=== PATIENT | male | born 1960 | race Caucasian/White ===

== ENCOUNTER 2016-11-15 07:57 | Day surgery (SDC) | payer OTHER ==
[2016-11-14 09:36] VITALS: BMI 38.3
[~2016-11-15 07:57] MED LIST: SODIUM CHLORIDE 0.9% 1,000 ML IV SCH
[2016-11-15 08:23] VITALS: TEMP 97.8
[2016-11-15] MEDS: BENZOCAINE SPRAY 100 APPLIC/CAN MUCOUS MEM ONE ×2 (09:15→09:20)
[2016-11-15] MEDS ORDERED: LIDOCAINE 1% INJ 10MG/ML (20 ML MDV) ONE (09:20)
[2016-11-15] MEDS ORDERED: PROPOFOL 10 MG/ML 20 ML VIAL IV ONE (09:20)
[2016-11-15] MEDS ORDERED: fentaNYL (PF) 50 MCG/ML 2 ML AMP ONE (09:20)
[2016-11-15 09:21] LABS: Glucose,Whole Blood 126 mg/dL (75-99)
[2016-11-15 09:30] LABS: Anion Gap 7 mmol/L; Blood Urea Nitrogen 17 mg/dL (9-20); Carbon Dioxide 24 mmol/L (22-30); Chloride 109 mmol/L (98-107); Glucose 132 mg/dL (74-99); Non-African American GFR(MDRD) >60 (>60 ml/min/1.73 sqM); Potassium 4.4 mmol/L (3.5-5.1); Sodium 140 mmol/L (137-145)
[2016-11-15] MEDS ORDERED: SODIUM CHLORIDE 0.9% 1,000 ML IV SCH (09:45)
--- NOTE | 2016-11-15 09:55 | ECHOT ---
DATE OF SERVICE: INDICATION: Chronic atrial fibrillation to rule out intracardiac thrombus. PROCEDURE NOTE: After obtaining informed consent, transesophageal echocardiogram is performed in the left lateral position using an Omni plane probe. Local and IV sedation were obtained by the gun club manager. Patient tolerated the procedure well without any obvious immediate complications. FINDINGS: 1. There is no intracardiac thrombus within the left atrial appendage, left atrium, right atrium and right ventricle. Left ventricle has normal size and systolic function. 2. Mitral valve is anatomically normal. There is mild mitral regurgitation noted. 3. Aortic valve is a 3-leaflet valve. There is mild to moderate aortic regurgitation noted. 4. Tricuspid valve appears normal, aorta measures within normal limits. 5. Interatrial septum: There is no evidence of [id number]-[id number] shunt by color flow Doppler or rgfei-pj-acme shunt by agitated saline contrast study. CONCLUSION: 1. No intracardiac thrombus. 2. Mild to moderate aortic regurgitation. PLAN: Patient will undergo cardioversion.
--- NOTE | 2016-11-15 09:59 | CE ---
DATE OF SERVICE: CARDIOVERSION: INDICATION: Chronic atrial fibrillation. After performing a transesophageal echo and confirming that there is no intracardiac thrombus, patient underwent cardioversion using 200 joules of DC current. He converted to sinus rhythm following a single shock and stayed in sinus rhythm. He is currently on Eliquis which he is going to continue. I am going to decrease the dose of Coreg to 3.125 b.i.d.
[2016-11-15 10:05] VITALS: RESP 16
[2016-11-15 11:32] VITALS: BP 121/72; PULSE 60
[2016-11-15] MEDS ORDERED: CARVEDILOL 6.25 MG TAB PO SCH (21:00)
[2016-11-15] MEDS ORDERED: traZODone HCL 100 MG TAB PO SCH (21:00)
[2016-11-15] MEDS ORDERED: metFORMIN 500 MG TAB PO SCH (21:00)
[2016-11-15] MEDS ORDERED: APIXABAN 5 MG TAB PO SCH (21:00)
[2016-11-16] MEDS ORDERED: ASPIRIN 81 MG CHEW PO SCH (09:00)
[2016-11-16] MEDS ORDERED: buPROPion XL 150 MG TAB.ER.24H PO SCH (09:00)
[2016-11-16] MEDS ORDERED: LISINOPRIL 2.5 MG TAB PO SCH (09:00)
== END 2016-11-15 11:32 | disposition home or self-care (01) ==
LOC: CATHCVL 07:57
PROVIDERS: ATTEND Internal Medicine Cardiovascular Disease
DX: I48.2 Chronic atrial fibrillation (principal); I08.0 Rheumatic disorders of both mitral and aortic valves; I48.92 Unspecified atrial flutter; R94.31 Abnormal electrocardiogram [ECG] [EKG]; E11.9 Type 2 diabetes mellitus without complications; I10 Essential (primary) hypertension; F32.9 Major depressive disorder, single episode, unspecified; Z79.01 Long term (current) use of anticoagulants; Z79.84 Long term (current) use of oral hypoglycemic drugs; Z79.82 Long term (current) use of aspirin; Z79.899 Other long term (current) drug therapy; Z79.1 Long term (current) use of non-steroidal anti-inflammatories (NSAID)
CPT/HCPCS: 93312; 93320; 93005; 93325; 92960; 80048; J2001; J3010; J2704

== ENCOUNTER 2016-12-26 17:00 | Emergency (ER) | payer OTHER ==
[2016-12-26] MEDS ORDERED: SODIUM CHLORIDE 0.9% 1,000 ML IV STA (17:22)
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
[2016-12-26 21:37] VITALS: BP 136/56; PULSE 82; RESP 20; TEMP 97.9
== END 2016-12-26 21:35 | disposition home or self-care (01) ==
LOC: EC 17:00
DX: F10.120 Alcohol abuse with intoxication, uncomplicated (principal); S80.212A Abrasion, left knee, initial encounter; S50.312A Abrasion of left elbow, initial encounter; F32.9 Major depressive disorder, single episode, unspecified; I10 Essential (primary) hypertension; F17.200 Nicotine dependence, unspecified, uncomplicated; Z79.899 Other long term (current) drug therapy; W01.0XXA Fall on same level from slipping, tripping and stumbling without subsequent striking against object, initial encounter; Y92.89 Other specified places as the place of occurrence of the external cause
CPT/HCPCS: 82075; 96360; 99284

== ENCOUNTER 2018-02-11 14:47 | Observation (INO) | payer OTHER ==
[2018-02-11] MEDS ORDERED: ADENOSINE 3 MG/ML 2 ML VIAL IVP STA ×2 (14:54→14:56)
[2018-02-11] MEDS ORDERED: METOPROLOL TARTRATE 5 MG/5 ML VIAL IVP STA (14:58)
[2018-02-11] MEDS ORDERED: LORazepam 2 MG/ML INJ IV STA (14:59)
[2018-02-11] MEDS ORDERED: DIPH,PERTUS(ACELL)TETVAC-LF 0.5 ML VIAL IM ONE (15:01)
[2018-02-11 15:04] LABS: Anisocytosis Slight; Basophils % (A) 0 %; Eosinophils % (A) 0 %; HGB 17.2 gm/dL (13.0-17.5); Hypochromasia Slight; Lymphocytes % (A) 20 %; MCH 31.8 pg (25.0-35.0); MCV 102.6 fL (80.0-100.0); Macrocytosis Moderate; Mean Platelet Volume 7.4; Monocytes # (A) 0.5 k/uL (0-1.0); Monocytes % (A) 5 %; Neutrophils # (A) 7.6 k/uL (1.3-7.7); Neutrophils % (A) 74 %; Platelet Count 195 k/uL (150-450); RBC 5.41 m/uL (4.30-5.90); RDW 16.5 % (11.5-15.5); WBC 10.3 k/uL (3.8-10.6)
[2018-02-11 15:05] LABS: HCT 55.5 % (39.0-53.0)
[2018-02-11 15:12] LABS: INR 1.2 (<1.2); Partial Thromboplastin Time 23.7 sec (22.0-30.0); Prothrombin Time 11.1 sec (9.0-12.0)
[2018-02-11 15:14] LABS: ALT 24 U/L (21-72); AST 27 U/L (17-59); Albumin 4.8 g/dL (3.5-5.0); Alkaline Phosphatase 94 U/L (38-126); Amylase 47 U/L (30-110); Anion Gap 23 mmol/L; Blood Urea Nitrogen 16 mg/dL (9-20); Calcium 9.4 mg/dL (8.4-10.2); Carbon Dioxide 12 mmol/L (22-30); Chloride 109 mmol/L (98-107); Glucose 111 mg/dL (74-99); Lipase 29 U/L (23-300); Potassium 4.7 mmol/L (3.5-5.1); Sodium 144 mmol/L (137-145); Total Bilirubin 1.6 mg/dL (0.2-1.3); Total Protein 7.8 g/dL (6.3-8.2)
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
[2018-02-11 15:32] LABS: Alcohol 357 mg/dL
[2018-02-11 15:35] LABS: Troponin I 0.022 ng/mL (0.000-0.034)
[2018-02-11] MEDS ORDERED: SODIUM CHLORIDE 0.9% 1,000 ML IV ONE (15:45)
[2018-02-11 16:09] LABS: Glucose,Whole Blood 120 mg/dL (75-99)
[2018-02-11] MEDS ORDERED: SODIUM CHLORIDE 0.9% 2,000 ML IV ONE (16:15)
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
[2018-02-11 17:12] LABS: Appearance,Urine Clear (Clear); Bacteria,Urine Occasional /hpf; Bilirubin,Urine Negative (Negative); Blood,Urine Small (Negative); Color,Urine Yellow; Glucose,Urine (UA) Negative (Negative); Granular Casts,Urine 1 /lpf (0); Hyaline Casts,Urine 7 /lpf (0-2); Ketones,Urine 1+ (Negative); Leukocyte Esterase,Urine Moderate (Negative); Nitrite,Urine Negative (Negative); Protein,Urine 2+ (Negative); RBC,Urine 2 /hpf (0-5); Specific Gravity,Urine 1.023 (1.001-1.035); Squamous Epithelial Cell,Urine <1 /hpf (0-4); Urobilinogen,Urine <2.0 mg/dL (<2.0); WBC,Urine 13 /hpf (0-5)
[2018-02-11 17:17] LABS: Amphetamine Screen,Urine Not Detected (NotDetected); Barbiturate Screen,Urine Not Detected (NotDetected); Benzodiazepines Screen,Urine Not Detected (NotDetected); Cocaine Screen,Urine Not Detected (NotDetected); Methadone Screen, Urine Not Detected (NotDetected); Opiate Screen,Urine Not Detected (NotDetected); Oxycodone Screen, Urine Not Detected (NotDetected); Phencyclidine Screen,Urine Not Detected (NotDetected); Tricyclic Antidepressant,Urine Not Detected (NotDetected); Urn Cannabinoid Scrn Not Detected (NotDetected)
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
[2018-02-11] MEDS ORDERED: NALOXONE 0.4 MG/ML 1 ML VIAL IV PRN (18:17)
[2018-02-11] MEDS ORDERED: IBUPROFEN 800 MG TAB PO PRN (18:19)
[2018-02-11] MEDS ORDERED: PIPERACILLIN-TAZOBACTAM 3.375 GM in DEXTROSE/WATER 1 50ML.BAG IVPB STA (18:19)
[2018-02-11] MEDS ORDERED: THIAMINE 100 MG/ML 2 ML VIAL IM STA (18:21)
[2018-02-11] MEDS ORDERED: LORazepam 2 MG/ML INJ IV PRN ×3 (18:21)
[2018-02-11 19:59] VITALS: TEMP 98
[2018-02-11] MEDS ORDERED: THIAMINE 100 MG TAB PO SCH (20:00)
[2018-02-11] MEDS ORDERED: metFORMIN 500 MG TAB PO SCH (20:00)
[2018-02-11] MEDS ORDERED: CARVEDILOL 6.25 MG TAB PO SCH (20:00)
[2018-02-11 20:59] LABS: Glucose,Whole Blood 135 mg/dL (75-99)
[2018-02-11] MEDS ORDERED: APIXABAN 5 MG TAB PO SCH (21:00)
[2018-02-11] MEDS ORDERED: traZODone HCL 100 MG TAB PO SCH (21:00)
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
[2018-02-11 22:13] VITALS: BP 152/94; PULSE 112; RESP 18
[2018-02-12] MEDS ORDERED: PIPERACILLIN-TAZOBACTAM 3.375 GM in DEXTROSE/WATER 1 50ML.BAG IVPB SCH
[2018-02-12] MEDS ORDERED: buPROPion XL 150 MG TAB.ER.24H PO SCH (09:00)
[2018-02-12] MEDS ORDERED: LISINOPRIL 2.5 MG TAB PO SCH (09:00)
[2018-02-12] MEDS ORDERED: ASPIRIN 81 MG PO SCH (09:00)
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
--- NOTE | 2018-02-21 17:04 | P.HPIM ---
History of Present Illness H&P Date: 02/11/18 Patient left AMA before I can evaluate the patient Past Medical History Past Medical History: Atrial Fibrillation, Diabetes Mellitus, Hypertension, Osteoarthritis (OA) Additional Past Medical History / Comment(s): hx. kidney stones History of Any Multi-Drug Resistant Organisms: None Reported Past Surgical History: Adenoidectomy, Tonsillectomy Past Anesthesia/Blood Transfusion Reactions: No Reported Reaction Past Psychological History: Depression Smoking Status: Current every day smoker Past Alcohol Use History: Abuse, Daily, Heavy Past Drug Use History: None Reported - Past Family History Mother Family Medical History: Cancer Medications and Allergies Home Medications Medication Instructions Recorded Confirmed Type Lisinopril [Zestril] 2.5 mg PO DAILY 11/12/16 02/11/18 History buPROPion XL [Wellbutrin Xl] 150 mg PO DAILY 11/12/16 02/11/18 History traZODone HCL [Desyrel] 200 mg PO HS 11/12/16 02/11/18 History Apixaban [Eliquis] 5 mg PO BID 02/11/18 02/11/18 History Aspirin [Adult Low Dose Aspirin EC] 81 mg PO DAILY 02/11/18 02/11/18 History Carvedilol [Coreg] 6.25 mg PO BID 02/11/18 02/11/18 History Ibuprofen 800 mg PO TID PRN 02/11/18 02/11/18 History metFORMIN HCL [Glucophage] 500 mg PO BID 02/11/18 02/11/18 History Allergies Allergy/AdvReac Type Severity Reaction Status Date / Time No Known Allergies Allergy Verified 02/12/18 00:37 Results CBC & Chem 7: 02/11/18 14:49 02/11/18 14:49
== END 2018-02-11 22:17 | disposition left against medical advice (07) ==
LOC: EC 14:47 → INTOOBSV 18:17 → 6SEL 18:17 → UNDODISIN 22:17
PROVIDERS: ADMIT Internal Medicine; ATTEND Internal Medicine
PROC: 0HQ5XZZ Repair Chest Skin, External Approach (ICD-10-PCS; principal; 2018-02-11)
DX: S21.112A Laceration without foreign body of left front wall of thorax without penetration into thoracic cavity, initial encounter (principal); X99.1XXA Assault by knife, initial encounter; F10.129 Alcohol abuse with intoxication, unspecified; Y90.8 Blood alcohol level of 240 mg/100 ml or more; I48.91 Unspecified atrial fibrillation; E11.9 Type 2 diabetes mellitus without complications; M19.90 Unspecified osteoarthritis, unspecified site; I10 Essential (primary) hypertension; R74.8 Abnormal levels of other serum enzymes; Z87.442 Personal history of urinary calculi; F32.9 Major depressive disorder, single episode, unspecified; F17.200 Nicotine dependence, unspecified, uncomplicated; Z80.9 Family history of malignant neoplasm, unspecified; Z79.899 Other long term (current) drug therapy; Z79.82 Long term (current) use of aspirin; Z79.84 Long term (current) use of oral hypoglycemic drugs; Z79.01 Long term (current) use of anticoagulants; Z53.21 Procedure and treatment not carried out due to patient leaving prior to being seen by health care provider; R40.2412 Glasgow coma scale score 13-15, at arrival to emergency department; R40.2362 Coma scale, best motor response, obeys commands, at arrival to emergency department; R40.2242 Coma scale, best verbal response, confused conversation, at arrival to emergency department; R06.02 Shortness of breath
CPT/HCPCS: 96372; 12002; 90471; 96361; 96374; 96375; 99291; 36415; 86900; 86901; 80053; 82150; 82550; 82553; 83605; 83690; 83735; 84484; 85025; 85610; 85730; 86850; 81001; 80306; 71045; 71260; 74177; 90715; G0378; G0480; J2060; J3411; J0153; J2543; Q9967; 80320

== ENCOUNTER 2021-01-30 17:29 | Inpatient (IN) | payer OTHER, MEDICARE ==
[~2021-01-30 17:29] MED LIST changes: +CALCIUM CHLORIDE 100 MG/ML 10 ML SYRINGE ONE; +EPINEPHrine 10 ML SYRINGE (0.1 MG/ML) ONE; +SODIUM BICARB 8.4% 50 ML SYR (1 MEQ/ML) ONE; -SODIUM CHLORIDE 0.9% 1,000 ML IV SCH
[2021-01-30 17:44] LABS: Glucose,Whole Blood 277 mg/dL (75-99)
[2021-01-30] MEDS ORDERED: NOREPINEPHRINE 32 MG in SODIUM CHLORIDE 0.9% 250 ML IV ONE ×2 (17:49→18:00)
[2021-01-30] MEDS ORDERED: SODIUM CHLORIDE 0.9% 1,000 ML IV ONE (17:49)
[2021-01-30] MEDS ORDERED: NOREPINEPHRINE 8 MG in SODIUM CHLORIDE 0.9% 250 ML IV ONE (17:58)
[2021-01-30] MEDS ORDERED: NOREPINEPHRINE 32 MG in SODIUM CHLORIDE 0.9% 218 ML IV ONE (18:00)
[2021-01-30 18:07] LABS: Albumin 3.1 g/dL (3.5-5.0); Calcium 11.3 mg/dL (8.4-10.2); Total Bilirubin 1.9 mg/dL (0.2-1.3); Total Protein 5.9 g/dL (6.3-8.2)
[2021-01-30] MEDS ORDERED: LIDOCAINE 1% INJ 10MG/ML (20 ML MDV) ONE (18:08)
[2021-01-30 18:09] LABS: HCT 48.8 % (39.0-53.0); HGB 15.6 gm/dL (13.0-17.5); Hypochromasia Moderate; MCHC 31.9 g/dL (31.0-37.0); Macrocytosis Marked; Mean Platelet Volume 9.9; RBC 4.44 m/uL (4.30-5.90); RDW 14.7 % (11.5-15.5); WBC 17.3 k/uL (3.8-10.6)
[2021-01-30] MEDS ORDERED: HEPARIN SODIUM 1,000 UN/ML (10ML VL) ONE (18:12)
[2021-01-30] MEDS ORDERED: fentaNYL (PF) 50 MCG/ML 2 ML AMP ONE (18:12)
[2021-01-30 18:14] LABS: ABG HCO3 20 mmol/L (21-25); ABG Oxygen Saturation 99.4 % (94-97); ABG PCO2 66 mmHg (35-45); ABG PO2 283 mmHg (83-108); ABG TCO2 22 mmol/L (19-24); Allen Test Performed? Yes
[2021-01-30 18:18] LABS: Creatine Kinase MB 0.5 ng/mL (0.0-2.4); Troponin I 0.025 ng/mL (0.000-0.034)
[2021-01-30 18:21] LABS: Band Neutrophils % 24 %; Lymphocytes # (M) 4.15 k/uL (1.0-4.8); Metamyelocytes # (M) 0.17 k/uL (0); Metamyelocytes % 1 %; Monocytes # (M) 2.25 k/uL (0-1.0); Neutrophils % (M) 39 %; Nucleated Red Blood Cells 0 /100 WBC (0-0); Total Cells Counted 200
[2021-01-30] MEDS ORDERED: fentaNYL (PF) 50 MCG/ML 2 ML AMP IVP STA (18:23)
[2021-01-30] MEDS ORDERED: fentaNYL (PF). 1,000 MCG in SODIUM CHLORIDE 0.9% 80 ML IV SCH (18:30)
[2021-01-30 18:31] LABS: Partial Thromboplastin Time 21.3 sec (22.0-30.0); Prothrombin Time 11.1 sec (9.0-12.0)
[2021-01-30] MEDS ORDERED: NOREPINEPHRINE 4 MG in SODIUM CHLORIDE 0.9% 250 ML IV ONE (18:35)
[2021-01-30] MEDS ORDERED: IV FLUID CONTINUATION 500 ML IV ONE (18:35)
[2021-01-30 18:37] LABS: ABG PH 7.09 (7.35-7.45)
[2021-01-30] MEDS ORDERED: LIDOCAINE 1% INJ 10MG/ML (20 ML MDV) SQ ONE (18:46)
[2021-01-30] MEDS ORDERED: fentaNYL (PF) 50 MCG/ML 2 ML AMP IVP ONE (18:46)
--- NOTE | 2021-01-30 18:46 | XR ---
EXAMINATION TYPE: XR chest 1V portable DATE OF EXAM: 01/30/2021 CLINICAL HISTORY: intubation. TECHNIQUE: Portable supine view of the chest. COMPARISON: 02/11/2018 FINDINGS: Endotracheal tube distal tip 3.9 cm from the destiny. Enteric tube appears coiled over the cervical esophagus. Redemonstrated cardiomegaly. There are perihilar multifocal patchy airspace opaci ties and increased interstitial markings. Small left pleural effusion. No pneumothorax within limitat ions of supine technique. No acute displaced osseous fracture. IMPRESSION: 1. Endotracheal tube distal tip 3.9 cm from the destiny. 2. Enteric tube appears coiled over the neck/cervical esophagus. 3. Multifocal bilateral perihilar airspace opacities may represent pneumonia versus pulmonary edema.
--- NOTE | 2021-01-30 18:48 | XR ---
EXAMINATION TYPE: XR chest 1V DATE OF EXAM: 01/30/2021 CLINICAL HISTORY: line place. TECHNIQUE: Portable frontal view of the chest. COMPARISON: 01/30/2021 at 5:45 PM FINDINGS: Redemonstrated and endotracheal tube. Redemonstrated enteric tube coiled over the neck. In terval placement of a left internal jugular central venous catheter with distal tip coursing craniall y over the expected superior vena cava. No pneumothorax of the visualized lungs. Small left pleural e ffusion. Perihilar airspace opacities redemonstrated. IMPRESSION: 1. Left internal jugular central venous catheter distal tip courses cranially over the expected prox imal superior vena cava. No pneumothorax. 2. Redemonstrated enteric tube coiled over the neck.
--- NOTE | 2021-01-30 18:54 | ED ---
General Adult HPI - General Chief complaint: Cardiac Arrest/CPR Stated complaint: CPR Time Seen by Provider: 01/30/21 17:30 Source: EMS Mode of arrival: EMS Limitations: altered mental status - History of Present Illness Initial comments: Patient is a 60-year-old male who presents emergency Department for cardiopulmonary arrest. Patient is in no medical history of atrial fibrillation on anticoagulation, hypertension, diabetes, hyperlipidemia, history of alcohol use who presents emergency Department secondary to a cardiopulmonary arrest. Patient originally called EMS over concern for difficulty in breathing. They stated that when they arrived he was clammy. Initial rhythm strips showed possible signs of ST segment elevations in leads 2, 3, aVF. Expressed an episode of emesis at the scene, and became unresponsive. He was pulseless. CPR was immediately started. Patient was intubated by EMS. Initial rhythm was ventricular fibrillation. He received a one-time defibrillation in the field and became asystole after that. 2 doses of epinephrine were administered. Patient presents emergency Department and active cardiac arrest with CPR in progress. Primary historian is EMS. - Related Data Home Medications Medication Instructions Recorded Confirmed lisinopriL [Zestril] 2.5 mg PO DAILY 11/12/16 01/30/21 Apixaban [Eliquis] 5 mg PO BID 02/11/18 01/30/21 metFORMIN HCL [Glucophage] 500 mg PO BID 02/11/18 01/30/21 Carvedilol [Coreg] 3.125 mg PO BID 08/11/20 01/30/21 Ergocalciferol (Vitamin D2) 2,500 mcg PO DIRECTED 08/11/20 01/30/21 [Vitamin D2 (50,000 Iu)] Prazosin HCl 2 mg PO HS 08/11/20 01/30/21 traZODone HCL 300 mg PO HS 08/11/20 01/30/21 Aspirin EC [Ecotrin Low Dose] 81 mg PO DAILY 01/30/21 01/30/21 buPROPion HCL [buPROPion HCL Xl] 150 mg PO DAILY 01/30/21 01/30/21 Allergies Allergy/AdvReac Type Severity Reaction Status Date / Time No Known Allergies Allergy Verified 01/30/21 21:14 Review of Systems ROS Statement: Those systems with pertinent positive or pertinent negative responses have been documented in the HPI. Unable to obtain secondary to patient's current clinical status. ROS Other: All systems not noted in ROS Statement are negative. Past Medical History Past Medical History: Atrial Fibrillation, Diabetes Mellitus, Hyperlipidemia, Hypertension, Osteoarthritis (OA) Additional Past Medical History / Comment(s): hx. kidney stones History of Any Multi-Drug Resistant Organisms: None Reported Past Surgical History: Adenoidectomy, Tonsillectomy Additional Past Surgical History / Comment(s): CARDIOVERSION FOR A FIB Past Anesthesia/Blood Transfusion Reactions: No Reported Reaction Past Psychological History: Depression Smoking Status: Unknown if ever smoked Past Alcohol Use History: Unable to Obtain Past Drug Use History: Unable to Obtain - Past Family History Mother Family Medical History: Cancer General Exam - General Exam Comments Initial Comments: General: Unresponsive HEAD: Normal with no signs of head trauma. EYES: Pupils are fixed and dilated. Pupils are approximately 5 mm and equal bilaterally. ENT: Trachea is midline. ET tube is in place. RESPIRATORY: Equal breath sounds bilaterally auscultated via [id number]. C/V: Pulseless ABD: Abdomen is soft and nondistended. EXT: No obvious deformity of the extremities. SKIN: No rashes or lesions observed on exposed skin. NEURO: Unresponsive. GCS of 3. Limitations: altered mental status Course Vital Signs 01/30/21 01/30/21 01/30/21 17:34 17:39 17:45 Pulse Rate 115 H 115 H 42 L Respiratory 14 Rate Blood Pressure 120/93 80/59 76/57 01/30/21 01/30/21 01/30/21 17:50 17:55 18:05 Pulse Rate 98 101 H 104 H Respiratory 18 18 Rate Blood Pressure 88/53 110/72 01/30/21 01/30/21 18:15 18:20 Pulse Rate 98 102 H Respiratory 18 18 Rate Blood Pressure 117/70 114/71 Procedures - [place] Protocol (Time Out) Patient Identification (2 identifiers required): Arm Band, Name, Birthdate Patient/Legal Dehydrator Tender has Confirmed: Identity, Procedure, Consent Site Marked: Not Applicable - ABG Interpretation Ph: 7.09 PCO2: 66 PO2: 283 Bicarbonate: 20 Interpretation: respiratory acidosis, metabolic acidosis - Arterial Line No standard instances Consent Obtained: emergent situation Technique Used: guide wire technique Post-Procedure: line sutured into place, dry sterile dressing placed Patient Tolerated Procedure: well Complications: none Additional Comments: right radial artery - Central Line Placement Left IJ Consent Obtained: emergent situation Patient Placed on Monitor/Pulse Ox: Yes Prep: mask, gown, gloves Central Line Prep: Povidone-Iodine 1%, Chlorhexidine scrub, sterile drapes applied Local Anesthesia Used: Lidocaine 1% Amount of Anesthesia Used (mls): 5 Ultrasound Used for Placement: Yes Central Line Lumen Inserted: triple Bloods Obtained for Lab: No Central Line Position: good blood return, all ports aspirated, flushed, capped, sutured in place with 2-0 silk Dressing Applied: Tegaderm Post Procedure X-Ray: tip of catheter in good position Patient Tolerated Procedure: well Complications: none Medical Decision Making - Medical Decision Making Based on the patient's presentation and physical exam, the patient is an active cardiopulmonary arrest with CPR in progress upon arrival. He arrested in front of EMS. ACLS protocol was immediately started. CPR was continued. Large bore IV access was obtained. Airway was secured by EMS via intubation with a 7.5 ET tube. Breath sounds are equal on ausculation when bagging with BVM. Patient remains pulseless. 1 round of CPR was performed in the resuscitation bay included one epinephrine, 1 amp of bicarb, 1 amp of calcium. Return of spontaneous circulation was obtained. Blood work was immediately drawn. Patient was given a 1 L fluid bolus. Vital signs at this time showed that the patient is tachycardic, had an appropriate blood pressure. Patient was connected to the mechanical ventilator by respiratory therapy. Post ROSC EKG was concerning for an acute ST segment elevation myocardial infarction in the inferior distribution as indicated in my EKG interpretation. STEMI pager was immediately activated to take the patient to cardiac catheterization lab. While awaiting cardiology is called, left IJ central line was placed as well as right radial arterial line. Please see additional documentation for procedure notes. The patient began to become hypotensive and was started on a norepine phrine drip. I spoke with cardiology on-call, Dr. King, who accepted the patient for cardiac catheterization lab. While the patient remained in the emergency department prior to cath, his neurological status improved, as his pupils became more reactive to light, he began to have a gag reflex and was moving his extremities. He was given 100 g of IV fentanyl for sedation. At this time, the patient stabilizes, he will require ICU admission following cardiac catheterization. Patient is discharged in serious condition to the cardiac catheterization lab. I spoke with the ICU attending on-call, Dr. Brown who accepted the patient. I also spoke with [facility] line installation supervisor regarding the admission. Patient was therefore admitted in critical condition. Laboratory studies returned following admission after he left the department. Patient had a leukocytosis of 17.3. D-dimer was elevated 1.64, and CT PE was obtained which showed no signs of pulmonary embolism. Initial ABG which was interpreted by myself showed a mixed metabolic and respiratory acidosis with pH is 7.09, pCO2 66, pO2 of 283, and bicarbonate 20. I increased the patient's respiratory rate to attempt to address the respiratory acidosis. Patient has elevated anion gap of 20 with a lactic acidosis of 11.1, repeat is within normal limits at 1.4. This was likely secondary to his cardiac arrest. Patient is mildly elevated AST of 123 and ALT of 51. Troponin initially 0.025, repeat is 1320. I was contacted by Dr. King, cardiology, who stated that the patient's cardiac cath was clean. Patient will be admitted to ICU in critical condition. - Lab Data Result diagrams: 01/30/21 17:48 01/30/21 17:47 Lab Results 01/30/21 01/30/21 01/30/21 Range/Units 17:33 17:45 17:47 WBC (3.8-10.6) k/uL RBC (4.30-5.90) m/uL Hgb (13.0-17.5) gm/dL Hct (39.0-53.0) % MCV (80.0-100.0) fL MCH (25.0-35.0) pg MCHC (31.0-37.0) g/dL RDW (11.5-15.5) % Plt Count (150-450) k/uL MPV Neutrophils % (Manual) % Band Neuts % (Manual) % Lymphocytes % (Manual) % Monocytes % (Manual) % Metamyelocytes % % Neutrophils # (Manual) (1.3-7.7) k/uL Lymphocytes # (Manual) (1.0-4.8) k/uL Monocytes # (Manual) (0-1.0) k/uL Metamyelocytes # (Man) (0) k/uL Nucleated RBCs (0-0) /100 WBC Manual Slide Review Hypochromasia Macrocytosis PT 11.1 (9.0-12.0) sec INR 1.0 (<1.2) APTT 21.3 L (22.0-30.0) sec D-Dimer (<0.60) mg/L FEU Sample Site ABG pH (7.35-7.45) ABG pCO2 (35-45) mmHg ABG pO2 (83-108) mmHg ABG HCO3 (21-25) mmol/L ABG Total CO2 (19-24) mmol/L ABG O2 Saturation (94-97) % ABG Base Excess mmol/L Willian Test FiO2 % Sodium (137-145) mmol/L Potassium (3.5-5.1) mmol/L Chloride (98-107) mmol/L Carbon Dioxide (22-30) mmol/L Anion Gap mmol/L BUN (9-20) mg/dL Creatinine (0.66-1.25) mg/dL Est GFR (CKD-EPI)AfAm (>60 ml/min/1.73 sqM) Est GFR (CKD-EPI)NonAf (>60 ml/min/1.73 sqM) Glucose (74-99) mg/dL POC Glucose (mg/dL) 277 H (75-99) mg/dL POC Glu Retail Planning Manager ID [place], [place] Lactic Ac Sepsis Rflx Plasma Lactic Acid Fredy (0.7-2.0) mmol/L Calcium (8.4-10.2) mg/dL Total Bilirubin (0.2-1.3) mg/dL AST (17-59) U/L ALT (4-49) U/L Alkaline Phosphatase (38-126) U/L Total Creatine Kinase (55-170) U/L CK-MB (CK-2) (0.0-2.4) ng/mL CK-MB (CK-2) Rel Index Troponin I (0.000-0.034) ng/mL NT-Pro-B Natriuret Pep pg/mL Total Protein (6.3-8.2) g/dL Albumin (3.5-5.0) g/dL Blood Type A Positive Blood Type Recheck A Pos Bld Type Recheck Status No Antibody Screen NEGATIVE Spec Expiration Date 02/02/2021 - 234401/30/21 01/30/21 01/30/21 Range/Units 17:47 17:47 17:47 WBC (3.8-10.6) k/uL RBC (4.30-5.90) m/uL Hgb (13.0-17.5) gm/dL Hct (39.0-53.0) % MCV (80.0-100.0) fL MCH (25.0-35.0) pg MCHC (31.0-37.0) g/dL RDW (11.5-15.5) % Plt Count (150-450) k/uL MPV Neutrophils % (Manual) % Band Neuts % (Manual) % Lymphocytes % (Manual) % Monocytes % (Manual) % Metamyelocytes % % Neutrophils # (Manual) (1.3-7.7) k/uL Lymphocytes # (Manual) (1.0-4.8) k/uL Monocytes # (Manual) (0-1.0) k/uL Metamyelocytes # (Man) (0) k/uL Nucleated RBCs (0-0) /100 WBC Manual Slide Review Hypochromasia Macrocytosis PT (9.0-12.0) sec INR (<1.2) APTT (22.0-30.0) sec D-Dimer (<0.60) mg/L FEU Sample Site ABG pH (7.35-7.45) ABG pCO2 (35-45) mmHg ABG pO2 (83-108) mmHg ABG HCO3 (21-25) mmol/L ABG Total CO2 (19-24) mmol/L ABG O2 Saturation (94-97) % ABG Base Excess mmol/L Willian Test FiO2 % Sodium 135 L (137-145) mmol/L Potassium 5.0 (3.5-5.1) mmol/L Chloride 96 L (98-107) mmol/L Carbon Dioxide 19 L (22-30) mmol/L Anion Gap 20 mmol/L BUN 25 H (9-20) mg/dL Creatinine 1.12 (0.66-1.25) mg/dL Est GFR (CKD-EPI)AfAm 82 (>60 ml/min/1.73 sqM) Est GFR (CKD-EPI)NonAf 71 (>60 ml/min/1.73 sqM) Glucose 291 H (74-99) mg/dL POC Glucose (mg/dL) (75-99) mg/dL POC Glu Retail Planning Manager ID Lactic Ac Sepsis Rflx Plasma Lactic Acid Fredy 11.1 H* (0.7-2.0) mmol/L Calcium 11.3 H (8.4-10.2) mg/dL Total Bilirubin 1.9 H (0.2-1.3) mg/dL AST 123 H (17-59) U/L ALT 51 H (4-49) U/L Alkaline Phosphatase 92 (38-126) U/L Total Creatine Kinase 30 L (55-170) U/L CK-MB (CK-2) 0.5 (0.0-2.4) ng/mL CK-MB (CK-2) Rel Index 1.7 Troponin I 0.025 (0.000-0.034) ng/mL NT-Pro-B Natriuret Pep pg/mL Total Protein 5.9 L (6.3-8.2) g/dL Albumin 3.1 L (3.5-5.0) g/dL Blood Type Blood Type Recheck Bld Type Recheck Status Antibody Screen Spec Expiration Date 01/30/21 01/30/21 01/30/21 Range/Units 17:47 17:48 17:48 WBC 17.3 H (3.8-10.6) k/uL RBC 4.44 (4.30-5.90) m/uL Hgb 15.6 (13.0-17.5) gm/dL Hct 48.8 (39.0-53.0) % MCV 110.0 H (80.0-100.0) fL MCH 35.0 (25.0-35.0) pg MCHC 31.9 (31.0-37.0) g/dL RDW 14.7 (11.5-15.5) % Plt Count (150-450) k/uL MPV 9.9 Neutrophils % (Manual) 39 % Band Neuts % (Manual) 24 % Lymphocytes % (Manual) 24 % Monocytes % (Manual) 13 % Metamyelocytes % 1 % Neutrophils # (Manual) 10.80 H (1.3-7.7) k/uL Lymphocytes # (Manual) 4.15 (1.0-4.8) k/uL Monocytes # (Manual) 2.25 H (0-1.0) k/uL Metamyelocytes # (Man) 0.17 H (0) k/uL Nucleated RBCs 0 (0-0) /100 WBC Manual Slide Review Performed Hypochromasia Moderate Macrocytosis Marked A PT (9.0-12.0) sec INR (<1.2) APTT (22.0-30.0) sec D-Dimer 1.64 H (<0.60) mg/L FEU Sample Site ABG pH (7.35-7.45) ABG pCO2 (35-45) mmHg ABG pO2 (83-108) mmHg ABG HCO3 (21-25) mmol/L ABG Total CO2 (19-24) mmol/L ABG O2 Saturation (94-97) % ABG Base Excess mmol/L Willian Test FiO2 % Sodium (137-145) mmol/L Potassium (3.5-5.1) mmol/L Chloride (98-107) mmol/L Carbon Dioxide (22-30) mmol/L Anion Gap mmol/L BUN (9-20) mg/dL Creatinine (0.66-1.25) mg/dL Est GFR (CKD-EPI)AfAm (>60 ml/min/1.73 sqM) Est GFR (CKD-EPI)NonAf (>60 ml/min/1.73 sqM) Glucose (74-99) mg/dL POC Glucose (mg/dL) (75-99) mg/dL POC Glu Retail Planning Manager ID Lactic Ac Sepsis Rflx Plasma Lactic Acid Fredy (0.7-2.0) mmol/L Calcium (8.4-10.2) mg/dL Total Bilirubin (0.2-1.3) mg/dL AST (17-59) U/L ALT (4-49) U/L Alkaline Phosphatase (38-126) U/L Total Creatine Kinase (55-170) U/L CK-MB (CK-2) (0.0-2.4) ng/mL CK-MB (CK-2) Rel Index Troponin I (0.000-0.034) ng/mL NT-Pro-B Natriuret Pep 1320 pg/mL Total Protein (6.3-8.2) g/dL Albumin (3.5-5.0) g/dL Blood Type Blood Type Recheck Bld Type Recheck Status Antibody Screen Spec Expiration Date 01/30/21 01/30/21 Range/Units 17:50 18:14 WBC (3.8-10.6) k/uL RBC (4.30-5.90) m/uL Hgb (13.0-17.5) gm/dL Hct (39.0-53.0) % MCV (80.0-100.0) fL MCH (25.0-35.0) pg MCHC (31.0-37.0) g/dL RDW (11.5-15.5) % Plt Count (150-450) k/uL MPV Neutrophils % (Manual) % Band Neuts % (Manual) % Lymphocytes % (Manual) % Monocytes % (Manual) % Metamyelocytes % % Neutrophils # (Manual) (1.3-7.7) k/uL Lymphocytes # (Manual) (1.0-4.8) k/uL Monocytes # (Manual) (0-1.0) k/uL Metamyelocytes # (Man) (0) k/uL Nucleated RBCs (0-0) /100 WBC Manual Slide Review Hypochromasia Macrocytosis PT (9.0-12.0) sec INR (<1.2) APTT (22.0-30.0) sec D-Dimer (<0.60) mg/L FEU Sample Site RAD ABG pH 7.09 L* (7.35-7.45) ABG pCO2 66 H (35-45) mmHg ABG pO2 283 H (83-108) mmHg ABG HCO3 20 L (21-25) mmol/L ABG Total CO2 22 (19-24) mmol/L ABG O2 Saturation 99.4 H (94-97) % ABG Base Excess -10.0 mmol/L Willian Test Yes FiO2 100 % Sodium (137-145) mmol/L Potassium (3.5-5.1) mmol/L Chloride (98-107) mmol/L Carbon Dioxide (22-30) mmol/L Anion Gap mmol/L BUN (9-20) mg/dL Creatinine (0.66-1.25) mg/dL Est GFR (CKD-EPI)AfAm (>60 ml/min/1.73 sqM) Est GFR (CKD-EPI)NonAf (>60 ml/min/1.73 sqM) Glucose (74-99) mg/dL POC Glucose (mg/dL) (75-99) mg/dL POC Glu Retail Planning Manager ID Lactic Ac Sepsis Rflx Y Plasma Lactic Acid Fredy (0.7-2.0) mmol/L Calcium (8.4-10.2) mg/dL Total Bilirubin (0.2-1.3) mg/dL AST (17-59) U/L ALT (4-49) U/L Alkaline Phosphatase (38-126) U/L Total Creatine Kinase (55-170) U/L CK-MB (CK-2) (0.0-2.4) ng/mL CK-MB (CK-2) Rel Index Troponin I (0.000-0.034) ng/mL NT-Pro-B Natriuret Pep pg/mL Total Protein (6.3-8.2) g/dL Albumin (3.5-5.0) g/dL Blood Type Blood Type Recheck Bld Type Recheck Status Antibody Screen Spec Expiration Date - EKG Data -: EKG Interpreted by Me EKG Comments: 12-lead Electrocardiogram Interpretation Note EKG was reviewed and interpreted by myself. 12-lead ECG performed at 1733 is interpreted by me as revealing sinus tachycardia with first-degree AV block and PVCs at a rate of 122 beats per minute. Left axis deviation. RI interval is 212 ms, QRS duration is 144 ms, QTc is listed at 575 However I question the accuracy of this.. There are ST segment elevations in leads 2, 3, aVF. There is T-wave inversions in V2 and V3. ST segment depressions in lead aVL. Patient has what appears to be a right bundle-branch block, anterior fascicular block as well. This is an abnormal EKG and concerning for acute ischemia, particularly in the inferior leads II, 3, aVF. I'm concerned for possible ST segment elevation myocardial infarction. Critical Care Time Critical Care Time: Yes Total Critical Care Time: 30 Critical Care Time: Upon my evaluation, this patient had a high probability of imminent or life- threatening deterioration due to ROSC following cardiopulmonary arrest, which r equired my direct attention, intervention, and personal management. I have personally provided 30 minutes of critical care time exclusive of time spent on separately billable procedures. Time includes review of laboratory data, radiology results, discussion with consultants, and monitoring for potential decompensation. Interventions were performed as documented in my note. Disposition Clinical Impression: Acute myocardial infarction, Cardiopulmonary arrest, Lactic acidosis, Metabolic acidosis, Respiratory acidosis, Encounter for intubation, Hypotension, Alcohol abuse, Leukocytosis, Elevated d-dimer Disposition: ADMITTED IP TO THIS HOSP Condition: Critical
[2021-01-30] MEDS ORDERED: IOPAMIDOL-370 100ML BTL INJ ONE (19:00)
[2021-01-30] MEDS ORDERED: RX INFO: IV CONTRAST WAS GIVEN 1 EACH MISC MISCELLANE PRN (19:10)
[2021-01-30] MEDS ORDERED: HEPARIN SOD,PORK IN 0.45% NACL 25,000 UNIT in 0.45% NACL 1 250ML.BAG IV ONE (19:10)
[2021-01-30] MEDS ORDERED: SODIUM CHLORIDE 0.9% 1,000 ML IV SCH (19:15)
--- NOTE | 2021-01-30 19:50 | CC ---
CARDIAC CATHETERIZATION REPORT DATE OF SERVICE: January 30, 2021. PERFORMING PHYSICIAN: Phil King MD. PROCEDURE PERFORMED: 1. Selective right and left coronary angiogram. 2. Left heart catheterization. INDICATION: This is a 60-year-old gentleman with history of paroxysmal atrial fibrillation as well as hypertension and dyslipidemia who was brought to the emergency department by ambulance because of shortness of breath. Just before he reached the emergency department, the patient went into cardiac arrest with VFib, required CPR and shock. The patient was brought to normal sinus mechanism. Upon that, he was seen by the ER physician, where the EKG was concerning for acute inferior ST-elevation myocardial infarction. Because of that, an emergent heart catheterization was advised. APPROACH: Right common femoral artery. COMPLICATION: None. LEVEL OF SEDATION: Moderate with sedation length of 15 minutes. PROCEDURE DESCRIPTION: The patient was brought to the cardiac lab assistant, intubated. The right common femoral artery was cannulated using micropuncture technique and a micropuncture wire passed easily. Then I placed a 6-[place] sheath at the right common femoral artery. After that, I did selective right and left coronary angiogram. That was performed using JR4 and JL 4.5 catheters. Left heart catheterization was performed using 5-[place] pigtail catheter. The procedure was completed without any complication. The right coronary artery is a medium caliber vessel. It is a nondominant vessel and appeared to be angiographically normal. CORONARY ANGIOGRAM FINDINGS: 1. The left main is a large caliber vessel. It is angiographically normal. It bifurcates into LCX and LAD. 2. The LCX is a large caliber vessel. It is a dominant vessel. The LCX is angiographically normal. Distally, it bifurcates into PDA and PLV branches, both appeared to be angiographically normal. In the mid to distal portion, gives rise into an OM branch which seems to be angiographically normal. 3. The LAD is a large caliber vessel. The LAD is angiographically normal in the proximal portion by the bifurcation of the large diagonal branch. The mid LAD has mild disease only and the LAD distally appeared to be angiographically normal. HEMODYNAMICS: The LVEDP was 10-12 mmHg without significant gradient across the aortic valve. CONCLUSION: 1. Normal coronary angiogram. 2. Normal LVEDP. POSTPROCEDURE MANAGEMENT: 1. Rule out pulmonary embolism giving the patient multiple risk factors. 2. Obtain an echocardiogram with Doppler. 3. Follow up with the patient. CASANDRA / IJN: [id number] /
--- NOTE | 2021-01-30 20:31 | CT ---
EXAMINATION TYPE: CT angio chest DATE OF EXAM: 01/30/2021 7:56 PM COMPARISON: Same day chest x-ray HISTORY: R/o PE. 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 CONTRAST: CTA scan of the thorax is performed with IV Contrast, patient injected with 100 mL of Isovue 370, pul monary embolism protocol. . FINDINGS: LUNGS: There is moderate atelectasis of the bilateral lower lobes. There are multifocal patchy airspa ce opacities throughout the bilateral lungs. There is no pneumothorax. Patient is intubated, with end otracheal tube distal tip 3.2 cm from the destiny. MEDIASTINUM: There is satisfactory enhancement of the pulmonary artery and its branches, there is no CT evidence for large central pulmonary embolism. There are no prominent hilar and mediastinal lymph nodes. No pericardial effusion is seen. Cardiomegaly. No pericardial effusion. Ectasia of the asce nding thoracic aorta measures up to 4.5 cm. OTHER: Multiple old left-sided rib fracture deformities. There are multiple left anterior nondisplac ed acute rib fracture deformities. IMPRESSION: 1. NO LARGE CENTRAL PULMONARY EMBOLISM. 2. MODERATE BILATERAL LOWER LOBE ATELECTASIS. MULTIFOCAL PATCHY AIRSPACE OPACITIES THROUGHOUT THE BI LATERAL LUNGS. 3. ASCENDING THORACIC AORTIC ECTASIA MEASURES 4.5 CM. 4. MULTIPLE NONDISPLACED LEFT RIB FRACTURE DEFORMITIES STATUS POST CPR.
[2021-01-30] MEDS ORDERED: propofoL 100 ML IV ONE ×2 (20:33→23:03)
[2021-01-30] MEDS: SODIUM CHLORIDE 0.9% 1,000 ML IV SCH (21:50)
[2021-01-30] MEDS: NOREPINEPHRINE 4 MG in SODIUM CHLORIDE 0.9% 250 ML IV SCH (22:02)
[2021-01-30] MEDS ORDERED: PROPOFOL IV SCH (22:15)
[2021-01-30] MEDS ORDERED: [UNRECOGNIZED DRUG - OTHER] IV SCH (22:15)
[2021-01-30 23:21] LABS: Glucose,Whole Blood 256 mg/dL (75-99)
[2021-01-31 00:08] LABS: ABG Base Excess 0.8 mmol/L; ABG HCO3 27 mmol/L (21-25); ABG Oxygen Saturation 99.8 % (94-97); ABG PCO2 49 mmHg (35-45); ABG PH 7.35 (7.35-7.45); ABG PO2 214 mmHg (83-108); ABG TCO2 28 mmol/L (19-24)
[2021-01-31 00:12] LABS: Allen Test Performed? no
[2021-01-31] MEDS: levETIRAcetam IV 1,000 MG in SALINE 1 100ML.BAG IVPB SCH ×3 (00:22→22:57)
--- NOTE | 2021-01-31 01:07 | CT ---
EXAMINATION TYPE: CT brain wo con DATE OF EXAM: 01/31/2021 COMPARISON: None HISTORY: posturing CT DLP: 1220.4 mGycm Automated exposure control for dose reduction was used. There is mild cerebral atrophy. There is no mass effect nor midline shift. There is no sign of intrac ranial hemorrhage. The calvarium is intact. There is normal aeration of the mastoid sinuses. There is mucosal thickening in the ethmoid air cells. Skull base is intact. IMPRESSION: Cerebral atrophy. No acute intracranial abnormality. Ethmoid sinusitis.
[2021-01-31] MEDS: NOREPINEPHRINE 4 MG in SODIUM CHLORIDE 0.9% 250 ML IV SCH ×2 (02:13→06:16)
[2021-01-31 05:20] LABS: ABG Base Excess 0.7 mmol/L; ABG HCO3 26 mmol/L (21-25); ABG Oxygen Saturation 98.3 % (94-97); ABG PCO2 44 mmHg (35-45); ABG PH 7.38 (7.35-7.45); ABG PO2 104 mmHg (83-108); ABG TCO2 27 mmol/L (19-24)
[2021-01-31 05:23] LABS: Allen Test Performed? no
[2021-01-31 05:58] LABS: HCT 41.2 % (39.0-53.0); HGB 13.3 gm/dL (13.0-17.5); Hypochromasia Slight; MCH 34.2 pg (25.0-35.0); MCHC 32.2 g/dL (31.0-37.0); MCV 106.1 fL (80.0-100.0); Macrocytosis Moderate; Mean Platelet Volume 9.8; Platelet Count 263 k/uL (150-450); RBC 3.89 m/uL (4.30-5.90); RDW 14.4 % (11.5-15.5); WBC 13.9 k/uL (3.8-10.6)
[2021-01-31 06:26] LABS: Glucose,Whole Blood 201 mg/dL (75-99)
[2021-01-31 06:32] LABS: Albumin 2.5 g/dL (3.5-5.0); Calcium 9.1 mg/dL (8.4-10.2); Magnesium 2.3 mg/dL (1.6-2.3); Potassium 4.3 mmol/L (3.5-5.1); Total Bilirubin 1.2 mg/dL (0.2-1.3); Total Protein 5.2 g/dL (6.3-8.2)
[2021-01-31] MEDS ORDERED: PHENYTOIN SODIUM INJ 1,000 MG in SODIUM CHLORIDE 0.9% 100 ML IVPB STA (06:41)
[2021-01-31] MEDS: INSULIN ASPART (NovoLOG) 100 UNIT/ML VIAL SQ SCH ×3 (07:13→18:50)
--- NOTE | 2021-01-31 07:58 | P.CNPUL ---
History of Present Illness Consult date: 01/31/21 Chief complaint: Unresponsive, cardiac arrest History of present illness: This is a 60-year-old male patient who presented to us with cardiac arrest. The patient arrived to the emergency department yesterday afternoon with cardiopulmonary arrest. And is a morbidly obese male patient, diabetic along with history of hypertension and atrial fibrillation along with history of alcoholism. Patient was having difficulties in breathing. EMS arrived to the scene and they found the patient quite short of breath, cold and clammy and was having significant respiratory distress. EKG was done and initial EKG showed some signs of ST segment elevation involving the inferior leads including 23 and aVF. The patient was also nauseated and had an episode of emesis and subsequently became acutely unresponsive and pulseless. CPR was initiated. The patient was intubated on scene. Initial cardiac rhythm was ventricular fibrillation. He received defibrillation in the field and he became asystolic. He received epinephrine and resuscitation was continued. He was brought in to the emergency department and he was suffering cardiac arrest and CPR was in progress. Resuscitation was continued in the emergency department. CPR was continued. IV access was established. Airway was secured by EMS via intubation and the patient has a 7.5 orotracheal tube. Patient remained pulseless. He was given further doses of epinephrine, bicarbonate and calcium gluconate. There was return of spontaneous circulation subsequently. The exact downtime was estimated to be somewhat 20 minutes. 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 Following that, the patient was brought into the intensive care unit. He was coming slightly restless during the cath,. The patient was started on propofol which is still running at 40 mg/kg/m. Nevertheless, overnight, the patient started posturing and the patient started having jerky body movements which were quite rapid beta typical of myoclonic jerks. At that point, I started the patient on Keppra and earlier this morning he was started also on Dilantin given 1 g loading. His cardiac rhythm is sinus. He is still hypotensive and he is on Prevacid which is running at 0.08 mcg/kg per minute of norepinephrine infusion. He has a Oquendo catheter in place. Urine output is in order of 40 mL an hour. Normal saline is running at the rate of 100 mL an hour. He is on a mechanical ventilator. His assist-control mode at the rate of 28 with a tidal volume of 500 and FiO2 of 50% with a PEEP of 5. The blood gases from this morning is showing pH of 7.37 with a pCO2 of 44 and pO2 of 104. Note that the chest x-ray showing bilateral pulmonary infiltrates. CT angios done that was done yesterday showed extensive bilateral lower lobe pulmonary infiltrates and consolidations consistent with pneumonia likely of an aspiration type. COVID-19 testing was sent and the results are still pending. White cell count from today is elevated at 13.9. It was 17.3 yesterday. The electrolytes are normal. Creatinine is at 1.1. Alcohol level is negative. Urine drug screen has not been done. CAT scan of the brain done yesterday showed no acute abnormalities. Review of Systems ROS unobtainable: due to endotracheal tube Past Medical History Past Medical History: Atrial Fibrillation, Diabetes Mellitus, Hyperlipidemia, Hypertension, Osteoarthritis (OA) Additional Past Medical History / Comment(s): hx. kidney stones History of Any Multi-Drug Resistant Organisms: None Reported Past Surgical History: Adenoidectomy, Tonsillectomy Additional Past Surgical History / Comment(s): CARDIOVERSION FOR A FIB Past Anesthesia/Blood Transfusion Reactions: No Reported Reaction Past Psychological History: Depression Smoking Status: Unknown if ever smoked Past Alcohol Use History: Unable to Obtain Past Drug Use History: Unable to Obtain - Past Family History Mother Family Medical History: Cancer Medications and Allergies Home Medications Medication Instructions Recorded Confirmed Type lisinopriL [Zestril] 2.5 mg PO DAILY 11/12/16 01/30/21 History Apixaban [Eliquis] 5 mg PO BID 02/11/18 01/30/21 History metFORMIN HCL [Glucophage] 500 mg PO BID 02/11/18 01/30/21 History Carvedilol [Coreg] 3.125 mg PO BID 08/11/20 01/30/21 History Ergocalciferol (Vitamin D2) 2,500 mcg PO DIRECTED 08/11/20 01/30/21 History [Vitamin D2 (50,000 Iu)] Prazosin HCl 2 mg PO HS 08/11/20 01/30/21 History traZODone HCL 300 mg PO HS 08/11/20 01/30/21 History Aspirin EC [Ecotrin Low Dose] 81 mg PO DAILY 01/30/21 01/30/21 History buPROPion HCL [buPROPion HCL Xl] 150 mg PO DAILY 01/30/21 01/30/21 History Allergies Allergy/AdvReac Type Severity Reaction Status Date / Time No Known Allergies Allergy Verified 01/30/21 21:14 Physical Exam Vitals: Vital Signs Temp Pulse Pulse Resp BP Pulse Ox 01/31/21 07:00 72 27 H 105/62 95 01/31/21 06:00 73 45 H 117/69 96 01/31/21 05:00 71 35 H 115/70 96 01/31/21 04:00 72 71 45 H 135/67 98 01/31/21 03:00 71 16 127/80 98 01/31/21 02:00 73 19 112/72 98 01/31/21 00:15 68 20 124/73 98 01/31/21 00:00 98.6 F 66 71 45 H 123/76 99 01/30/21 23:00 51 L 28 H 107/77 99 01/30/21 22:00 79 17 98/79 99 01/30/21 21:00 98.6 F 81 14 98/79 98 01/30/21 20:00 91 71 99 01/30/21 18:20 102 H 18 114/71 01/30/21 18:15 98 18 117/70 01/30/21 18:05 104 H 18 01/30/21 18:00 103 H 13 141/76 100 01/30/21 17:55 101 H 110/72 01/30/21 17:53 89 5 L 110/72 01/30/21 17:50 98 18 88/53 01/30/21 17:45 42 L 76/57 01/30/21 17:39 115 H 80/59 01/30/21 17:34 115 H 14 120/93 Intake and Output 01/30/21 01/31/21 01/31/21 22:59 06:59 14:59 Intake Total 517.206 5923.974 100 Output Total 250 470 55 Balance 271.924 537.974 45 Intake: IV 120 Intake, IV Titration 762.427 7861.974 100 Amount Norepinephrine 4 mg In 207.974 Sodium Chloride 0.9% 250 ml @ 0.05 MCG/KG/MIN 25. 26 mls/hr IV .Q10H4M [facility] Rx#:[id number] Norepinephrine 8 mg In 1.924 Sodium Chloride 0.9% 250 ml @ 0.05 MCG/KG/MIN 12. 829 mls/hr IV .Q20H7M [facility] Rx#:[id number] Sodium Chloride 0.9% 1, 100 500 100 000 ml @ 100 mls/hr IV . Q10H [facility] Rx#:[id number] propofoL 1,000 mg In 300 300 propofoL 1,000 ml @ Titrate IV .Q0M [facility] Rx#: [id number] Output: Urine 250 470 55 Other: Weight 132.6 kg 129.8 kg ABP, PAP, CO, CI - Last 8 Hours Arterial Blood Pressure 116/68 Arterial Blood Pressure 114/64 Arterial Blood Pressure 118/66 Gen. appearance, patient is currently on propofol. Is having episodic myoclonic jerks. He is completely unresponsive. He is intubated on a mechanical ventilator. Orotracheal and orogastric tube are both in place. He is morbidly obese. Head exam was generally normal. There was no scleral icterus or corneal arcus. Mucous membranes were moist. Neck was supple and without jugular venous distension, thyromegaly, or carotid bruits. Carotids were easily palpable bilaterally. There was no adenopathy. Orogastric and orotracheal tube are both in place and the patient has a #7.5 orotracheal tube. Lungs sounds are diminished and the patient has scattered rhonchi heard throughout the lung his bilaterally and crackles are also appreciated the lung b ases Heart sounds are regular, positive S1-S2 and there is no significant murmurs appreciated. Abdominal exam revealed normal bowel sounds. The abdomen was soft, non-tender, and without masses, organomegaly, or appreciable enlargement of the abdominal aorta. Extremities revealed diminished pulses bilaterally. No cyanosis or clubbing. Neurologically, the patient is completely unresponsive on propofol. He is having myoclonic jerks. Pupils are round 3 mm in size, sluggishly reactive to light. No nystagmus. Positive dose eyes. Absent corneal reflex. Absent gag reflex. Babinski could not be elicited. Reflexes are quite diminished bilaterally. Does not respond to any painful stimulation. Motor function cannot be assessed. Sensory functions cannot be assessed. No neck stiffness. Results - Laboratory Findings CBC and BMP: 01/31/21 05:10 01/31/21 05:10 ABG ABG pH 7.38 (7.35-7.45) 01/31/21 05:09 ABG pCO2 44 mmHg (35-45) 01/31/21 05:09 ABG pO2 104 mmHg (83-108) 01/31/21 05:09 ABG O2 Saturation 98.3 % (94-97) H 01/31/21 05:09 PT/INR, D-dimer PT 11.1 sec (9.0-12.0) 01/30/21 17:47 INR 1.0 (<1.2) 01/30/21 17:47 D-Dimer 1.64 mg/L FEU (<0.60) H 01/30/21 17:47 Abnormal lab findings: Abnormal Labs 01/30/21 01/30/21 01/30/21 17:33 17:47 17:47 WBC RBC MCV Neutrophils # (Manual) Monocytes # (Manual) Metamyelocytes # (Man) Macrocytosis APTT 21.3 L D-Dimer ABG pH ABG pCO2 ABG pO2 ABG HCO3 ABG Total CO2 ABG O2 Saturation Sodium 135 L Chloride 96 L Carbon Dioxide 19 L BUN 25 H Glucose 291 H POC Glucose (mg/dL) 277 H Plasma Lactic Acid Fredy Calcium 11.3 H Total Bilirubin 1.9 H AST 123 H ALT 51 H Total Creatine Kinase Total Protein 5.9 L Albumin 3.1 L 01/30/21 01/30/21 01/30/21 17:47 17:47 17:47 WBC RBC MCV Neutrophils # (Manual) Monocytes # (Manual) Metamyelocytes # (Man) Macrocytosis APTT D-Dimer 1.64 H ABG pH ABG pCO2 ABG pO2 ABG HCO3 ABG Total CO2 ABG O2 Saturation Sodium Chloride Carbon Dioxide BUN Glucose POC Glucose (mg/dL) Plasma Lactic Acid Fredy 11.1 H* Calcium Total Bilirubin AST ALT Total Creatine Kinase 30 L Total Protein Albumin 01/30/21 01/30/21 01/30/21 17:48 17:50 23:19 WBC 17.3 H RBC MCV 110.0 H Neutrophils # (Manual) 10.80 H Monocytes # (Manual) 2.25 H Metamyelocytes # (Man) 0.17 H Macrocytosis Marked A APTT D-Dimer ABG pH 7.09 L* ABG pCO2 66 H ABG pO2 283 H ABG HCO3 20 L ABG Total CO2 ABG O2 Saturation 99.4 H Sodium Chloride Carbon Dioxide BUN Glucose POC Glucose (mg/dL) 256 H Plasma Lactic Acid Fredy Calcium Total Bilirubin AST ALT Total Creatine Kinase Total Protein Albumin 01/31/21 01/31/21 01/31/21 00:01 05:09 05:10 WBC 13.9 H RBC 3.89 L MCV 106.1 H Neutrophils # (Manual) Monocytes # (Manual) Metamyelocytes # (Man) Macrocytosis APTT D-Dimer ABG pH ABG pCO2 49 H ABG pO2 214 H ABG HCO3 27 H 26 H ABG Total CO2 28 H 27 H ABG O2 Saturation 99.8 H 98.3 H Sodium Chloride Carbon Dioxide BUN Glucose POC Glucose (mg/dL) Plasma Lactic Acid Fredy Calcium Total Bilirubin AST ALT Total Creatine Kinase Total Protein Albumin 01/31/21 01/31/21 05:10 06:24 WBC RBC MCV Neutrophils # (Manual) Monocytes # (Manual) Metamyelocytes # (Man) Macrocytosis APTT D-Dimer ABG pH ABG pCO2 ABG pO2 ABG HCO3 ABG Total CO2 ABG O2 Saturation Sodium 136 L Chloride Carbon Dioxide BUN 34 H Glucose 222 H POC Glucose (mg/dL) 201 H Plasma Lactic Acid Fredy Calcium Total Bilirubin AST 151 H ALT 87 H Total Creatine Kinase Total Protein 5.2 L Albumin 2.5 L - Diagnostic Findings Chest x-ray: image reviewed CT scan - chest: image reviewed Assessment and Plan Plan: 1 acute V. fib cardiac arrest, positive EKG changes with ST segment elevation and subsequent cardiac catheterization revealed no evidence of any coronary artery disease. CT angios and was also negative for pulmonary embolism. The patient extensive consolidation involving the lower lobes bilaterally consistent with pneumonia. Could be aspiration pneumonia. Could be community-acquired pneumonia that sugar initially into respiratory failure and subsequent cardiac arrest. 2 anoxic encephalopathy due to prolonged downtime following cardiac arrest 3 myoclonic jerks a candidate to anoxic encephalopathy/cardiac arrest 4 acute hypoxic respiratory failure currently intubated on mechanical ventilator secondary to above 5 acute bilateral pneumonia, consider aspiration. COVID-19 testing is still pending 6 acute lactic acidosis secondary to above 7 acute leukocytosis secondary to above 8 acute shock, post cardiac arrest. Consider cardiogenic shock. Consider septic shock. Currently on norepinephrine infusion. 9 diabetes mellitus 10 history of atrial fibrillation maintained on long-term antibiotic ventilation with Eliquis. Current rhythm is sinus. 11 hypertension 12 hyperlipidemia 13 obesity Plan This patient's is currently intubated on mechanical ventilator. This is a ventilator changes were done. Neurologically the patient is significantly impaired. He is currently on propofol please also on a combination of Keppra and Dilantin. Neurology consultation will be obtained. Stat EEG will be obtained. Patient is having some myoclonic jerks consistent with anoxic encephalopathy. Is completely unresponsive. CAT scan of the brain is been negative. hemodynamically, the patient will need a triple lumen catheter. The patient will be kept on pressors and the patient will be also weaned off norepinephrine. We'll obtain a stat echocardiogram Will monitor cardiac enzymes We'll start the patient IV Zosyn on today's sputum Gram stain and culture and blood culture We'll put the patient on a sliding scale insulin coverage We'll obtain a urine drug screen Awaiting COVID-19 testing by PCR Cardiology consultation Neurology consultation Workup done already has been noted. CT angiogram is negative for pulmonary embolism. There is extensive bilateral pneumonia. I'm considering the possibility of pneumonia that led into this subsequent cardiac arrest. Unfortunately, there are signs of severe anoxic encephalopathy. We'll continue to follow. Condition is critical. Prognosis poor baseline above-mentioned comorbidities. Time with Patient: Greater than 30
[2021-01-31] MEDS ORDERED: HEPARIN SODIUM 1,000 UN/ML (10ML VL) IV PRN (08:23)
[2021-01-31] MEDS ORDERED: HEPARIN SODIUM 1,000 UN/ML (10ML VL) IV ONE (08:23)
--- NOTE | 2021-01-31 08:26 | XR ---
EXAMINATION TYPE: XR chest 1V DATE OF EXAM: 01/31/2021 COMPARISON: Chest x-ray and chest CT 01/30/2021 HISTORY: Intubated TECHNIQUE: Single frontal view of the chest is obtained. FINDINGS: Endotracheal tube is overlying the tracheal air column. Left-sided jugular central venous catheter has been removed. No evident pneumothorax, lung apex on the left not entirely included on th e exam however. Bilateral patchy increased density within the lungs persists, interstitium is also in creased and there is persistent blunting of left costophrenic angle. Cardiac mediastinal silhouette i s stable, borderline enlarged, patient is rotated, aorta is aneurysmal. Aorta is dense. There are ove rlying artifacts. IMPRESSION: Interval line removal, correlate for pneumonia, ARDS, edema.
--- NOTE | 2021-01-31 08:28 | P.PCN ---
Preoperative Diagnosis: shock, cardiac arrest Postoperative Diagnosis: shock, cardiac arrest Procedure(s) Performed: central line Anesthesia: local Surgeon: Fran Brown Pathology: none sent Condition: critical Disposition: ICU Operative Findings: Indication: Hemodynamic monitoring/Intravenous access. A time-out was completed verifying correct patient, procedure, site, positioning, and implant(s) or special equipment if applicable. The patient was placed in a dependent position appropriate for central line placement based on the vein to be cannulated. The patients left chest groin was prepped and draped in sterile fashion. 1% Lidocaine was used to anesthetize the surrounding skin area. A triple lumen 9F Cordis catheter was introduced into the subclavian vein using Seldinger technique. The catheter was threaded smoothly over the guide wire and appropriate blood return was obtained. Each lumen of the catheter was evacuated of air and flushed with sterile saline. The catheter was then sutured in place to the skin and a sterile dressing applied. Perfusion to the extremity distal to the point of catheter insertion was checked and found to be adequate. The patient tolerated the procedure well and there were no complications.
[2021-01-31] MEDS: IPRATROPIUM-ALBUTEROL 3 ML NEB INHALATION SCH ×5 (08:52→23:12)
[2021-01-31 09:06] LABS: Band Neutrophils % 12 %; Lymphocytes # (M) 1.11 k/uL (1.0-4.8); Monocytes # (M) 1.11 k/uL (0-1.0); Neutrophils % (M) 72 %; Nucleated Red Blood Cells 0 /100 WBC (0-0); Total Cells Counted 100
--- NOTE | 2021-01-31 09:07 | XR ---
EXAMINATION TYPE: XR chest 1V portable DATE OF EXAM: 01/31/2021 COMPARISON: Chest x-ray dated 01/31/2021 HISTORY: Central venous catheter placement TECHNIQUE: Single frontal view of the chest is obtained. FINDINGS: There is been interval placement of a left subclavian central venous catheter, distal tip is overlying superior vena cava. There is no evident pneumothorax or other interval change. 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 IMPRESSION: No evident complication status post central venous catheter placement. NG tube may be co iled within the neck, correlate.
[2021-01-31 09:11] LABS: Large Platelets Present
[2021-01-31] MEDS ORDERED: PHENYTOIN SODIUM INJ 750 MG in SODIUM CHLORIDE 0.9% 100 ML IVPB STA (09:32)
[2021-01-31] MEDS: HEPARIN SOD,PORK IN 0.45% NACL 25,000 UNIT in 0.45% NACL 1 250ML.BAG IV SCH (10:20)
[2021-01-31] MEDS: FAMOTIDINE 20 MG/2 ML VIAL IV SCH ×2 (10:21→22:00)
[2021-01-31] MEDS: CHLORHEXIDINE GLUCONATE 15 ML CUP MUCOUS MEM SCH ×2 (10:21→22:00)
[2021-01-31] MEDS: PIPERACILLIN-TAZOBACTAM 3.375 GM in SODIUM CHLORIDE 0.9% 100 ML IVPB SCH ×2 (10:22→18:49)
--- NOTE | 2021-01-31 11:00 | ECHOF ---
Referral Reason:lv function MEASUREMENTS -------- HEIGHT: 188.0 cm WEIGHT: 129.7 kg BP: 113/64 IVSd: 1.8 cm (0.6 - 1.1) LVIDd: 4.4 cm (3.9 - 5.3) LVPWd: 1.9 cm (0.6 - 1.1) IVSs: 1.4 cm LVIDs: 3.1 cm LVPWs: 1.7 cm Ao Diam: 3.9 cm (2.0 - 3.7) AV Cusp: 1.7 cm (1.5 - 2.6) LA Diam: 5.3 cm (2.7 - 3.8) MV EXCURSION: 13.333 mm (> 18.000) MV EF SLOPE: 62 mm/s (70 - 150) EPSS: 0.4 cm MV E Fabien: 1.00 m/s MV DecT: 288 ms MV A Fabien: 0.77 m/s MV E/A Ratio: 1.29 RAP: 5.00 mmHg RVSP: 25.37 mmHg FINDINGS -------- This was a technically difficult study with suboptimal views. Pt. on a vent. The left ventricular size is normal. There is severe concentric left ventricular hypertrophy. Ove rall left ventricular systolic function is low-normal with, an EF between 50 - 55 %. The right ventricle is normal in size. The left atrium was not well visualized. The left atrium is markedly dilated. The right atrium was not well visualized. 5.0mg of Lumason was utilized for enhancement of images Interatrial and interventricular septum intact. The aortic valve was not well visualized. There is mild aortic regurgitation. There is no evidenc e of aortic stenosis. The mitral valve was not well visualized. Mild tricuspid regurgitation present. There is no evidence of pulmonary hypertension. The right v entricular systolic pressure, as measured by Doppler, is 25.37mmHg. The pulmonic valve was not well visualized. The aortic root and ascending aorta are dilated measuring up to (4.5) cm. IVC Not well visulized. There is no pericardial effusion. CONCLUSIONS -------- 1. The left ventricular size is normal. 2. There is severe concentric left ventricular hypertrophy. 3. Overall left ventricular systolic function is low-normal with, an EF between 50 - 55 %. 4. The left atrium is markedly dilated. 5. There is mild aortic regurgitation. 6. Mild tricuspid regurgitation present. 7. The aortic root and ascending aorta are dilated measuring up to (4.5) cm. DISTANCE LEARNING COORDINATOR: Shira Kenney RDCS
--- NOTE | 2021-01-31 11:22 | P.CNNES ---
History of Present Illness Consult date: 01/31/21 Requesting physician: Fran Brown Reason for Consult: Postcode posturing History of Present Illness: Patient is a 60-year-old male came to the hospital yesterday at 5:29 PM by ambulance after patient had a cardiac arrest with downtime of about 15-20 minutes. Patient at present is comatose, intubated. EMS was activated at 5:02 PM yesterday. When they arrived at the scene at 5:05 PM, and according to their report, patient was alert and oriented, complaining of shortness of breath over the past 3 days which has progressed and is beginning to affect his activities of daily living. Patient's vitals were stable with pulse of 116, respiration 28 and saturation 49%. [facility] Patient was placed on cardiac monitoring and during that time patient began to become less responsive. Patient appeared to go into agonal respiration for short time and so ventilations were assisted with BVM. Patient appeared briefly to go into V. fib rhythm without a pulse at 5:18 PM and the EMS started compression and the patient converted back to what appears to be an atrial fibrillation rhythm in the 110s. Patient regained minimal responsiveness. During which time they attempted to get a 12-lead, which revealed some inferior elevation before again going into V Fib. Patient was defibrillated and went into asystole. Patient was intubated and IV access established. Patient had continuous chest compression throughout the transport. Patient received 2 rounds of epi. Patient arrived to the ER at 5:29 PM undergoing CPR. This was continued, and patient ROSC was obtained. Total downtime appears 16 minutes based upon above documentation. Patient's vitals at 5:34 PM was blood pressure 120/93, pulse rate 115. Patient's blood test shows WBC 13.9, hemoglobin 13.3, platelets 263. INR 1.0. ABG showed pH 7.09, pCO2 66, and saturation 99.4. Sodium 135 potassium 5.0, and BUN 25, creatinine 1.12. Lactate 11.1. AST 123, ALT 51. Troponin negative. Blood alcohol level less than 10. Computed tomography scan of the head showed cerebral atrophy, no acute process. Ethmoid sinusitis. CTA of the chest showed no large central pulmonary embolism. Moderate bilateral lower lobe atelectasis, multifactorial patchy air space opacities throughout the bilateral lungs. As cending thoracic aortic ectasia measures 4.5 cm. Multiple nondisplaced left rib fractures deformities status post CPR. Patient had undergone coronary angiography, which shows normal coronary angiogr am. Normal left ventricular end-diastolic pressure. PE has been ruled out Patient overnight has developed intermittent myoclonic jerking. Keppra 1000 mg IV twice a day was started. The activity improved, but continued. Dilantin 1 g loading dose was given. Patient started on propofol. Stat EEG was requested. Review of Systems ROS unobtainable: due to endotracheal tube, due to mental status Past Medical History Past Medical History: Atrial Fibrillation, Diabetes Mellitus, Hyperlipidemia, Hypertension, Osteoarthritis (OA) Additional Past Medical History / Comment(s): hx. kidney stones History of Any Multi-Drug Resistant Organisms: None Reported Past Surgical History: Adenoidectomy, Tonsillectomy Additional Past Surgical History / Comment(s): CARDIOVERSION FOR A FIB Past Anesthesia/Blood Transfusion Reactions: No Reported Reaction Past Psychological History: Depression Smoking Status: Unknown if ever smoked Past Alcohol Use History: Unable to Obtain Past Drug Use History: Unable to Obtain - Past Family History Mother Family Medical History: Cancer Medications and Allergies Home Medications Medication Instructions Recorded Confirmed Type lisinopriL [Zestril] 2.5 mg PO DAILY 11/12/16 01/30/21 History Apixaban [Eliquis] 5 mg PO BID 02/11/18 01/30/21 History metFORMIN HCL [Glucophage] 500 mg PO BID 02/11/18 01/30/21 History Carvedilol [Coreg] 3.125 mg PO BID 08/11/20 01/30/21 History Ergocalciferol (Vitamin D2) 2,500 mcg PO DIRECTED 08/11/20 01/30/21 History [Vitamin D2 (50,000 Iu)] Prazosin HCl 2 mg PO HS 08/11/20 01/30/21 History traZODone HCL 300 mg PO HS 08/11/20 01/30/21 History Aspirin EC [Ecotrin Low Dose] 81 mg PO DAILY 01/30/21 01/30/21 History buPROPion HCL [buPROPion HCL Xl] 150 mg PO DAILY 01/30/21 01/30/21 History Allergies Allergy/AdvReac Type Severity Reaction Status Date / Time No Known Allergies Allergy Verified 01/30/21 21:14 Physical Examination - Vital Signs Vital Signs: Vital Signs Temp Pulse Pulse Resp BP Pulse Ox 01/31/21 08:00 72 18 113/64 98 01/31/21 07:00 72 27 H 105/62 95 01/31/21 06:00 73 45 H 117/69 96 01/31/21 05:00 71 35 H 115/70 96 01/31/21 04:00 72 71 45 H 135/67 98 01/31/21 03:00 71 16 127/80 98 01/31/21 02:00 73 19 112/72 98 01/31/21 00:15 68 20 124/73 98 01/31/21 00:00 98.6 F 66 71 45 H 123/76 99 01/30/21 23:00 51 L 28 H 107/77 99 01/30/21 22:00 79 17 98/79 99 01/30/21 21:00 98.6 F 81 14 98/79 98 01/30/21 20:00 91 71 99 01/30/21 18:20 102 H 18 114/71 01/30/21 18:15 98 18 117/70 01/30/21 18:05 104 H 18 01/30/21 18:00 103 H 13 141/76 100 01/30/21 17:55 101 H 110/72 01/30/21 17:53 89 5 L 110/72 01/30/21 17:50 98 18 88/53 01/30/21 17:45 42 L 76/57 01/30/21 17:39 115 H 80/59 01/30/21 17:34 115 H 14 120/93 Intake and Output 01/30/21 01/31/21 01/31/21 22:59 06:59 14:59 Intake Total 382.640 2242.974 100 Output Total 250 470 55 Balance 271.924 537.974 45 Intake: IV 120 Intake, IV Titration 565.261 1073.974 100 Amount Norepinephrine 4 mg In 207.974 Sodium Chloride 0.9% 250 ml @ 0.05 MCG/KG/MIN 25. 26 mls/hr IV .Q10H4M [facility] Rx#:[id number] Norepinephrine 8 mg In 1.924 Sodium Chloride 0.9% 250 ml @ 0.05 MCG/KG/MIN 12. 829 mls/hr IV .Q20H7M [facility] Rx#:[id number] Sodium Chloride 0.9% 1, 100 500 100 000 ml @ 100 mls/hr IV . Q10H [facility] Rx#:[id number] propofoL 1,000 mg In 300 300 propofoL 1,000 ml @ Titrate IV .Q0M [facility] Rx#: [id number] Output: Urine 250 470 55 Other: Weight 132.6 kg 129.8 kg ABP, PAP, CO, CI - Last 8 Hours Arterial Blood Pressure 116/68 Patient is a late middle aged male, obese, who is intubated, patient having intermittent myoclonic jerking every 5-10 seconds lasting for 1-2 seconds. Patient is near comatose with minimal response. Speech and language functions cannot be assessed. On cranial examination, pupils are round and reacting to light, visual abdalla could not be tested, oculocephalics are absent, corneal reflexes absent. Other cranial nerves could not be tested. Muscle strength could not be tested. Patient slightly moves each extremity on painful stimuli. The response was equal in all 4 extremities. Deep tendon reflexes are diminished, and plantars are flat. Sensory as above. Cerebellar function could not be tested. Tone is equal. Gait not able to be tested. On general examination, there is no carotid bruit or murmur, S1-S2 audible. Abdomen is soft nontender. Chest is congested. Results - Laboratory Findings CBC and BMP: 02/01/21 02:00 02/01/21 02:00 Abnormal Lab Findings: Abnormal Labs 01/30/21 01/30/21 01/30/21 17:33 17:47 17:47 WBC RBC MCV Neutrophils # (Manual) Monocytes # (Manual) Metamyelocytes # (Man) Macrocytosis APTT 21.3 L D-Dimer ABG pH ABG pCO2 ABG pO2 ABG HCO3 ABG Total CO2 ABG O2 Saturation Sodium 135 L Chloride 96 L Carbon Dioxide 19 L BUN 25 H Glucose 291 H POC Glucose (mg/dL) 277 H Plasma Lactic Acid Fredy Calcium 11.3 H Total Bilirubin 1.9 H AST 123 H ALT 51 H Total Creatine Kinase Total Protein 5.9 L Albumin 3.1 L 01/30/21 01/30/21 01/30/21 17:47 17:47 17:47 WBC RBC MCV Neutrophils # (Manual) Monocytes # (Manual) Metamyelocytes # (Man) Macrocytosis APTT D-Dimer 1.64 H ABG pH ABG pCO2 ABG pO2 ABG HCO3 ABG Total CO2 ABG O2 Saturation Sodium Chloride Carbon Dioxide BUN Glucose POC Glucose (mg/dL) Plasma Lactic Acid Fredy 11.1 H* Calcium Total Bilirubin AST ALT Total Creatine Kinase 30 L Total Protein Albumin 01/30/21 01/30/21 01/30/21 17:48 17:50 23:19 WBC 17.3 H RBC MCV 110.0 H Neutrophils # (Manual) 10.80 H Monocytes # (Manual) 2.25 H Metamyelocytes # (Man) 0.17 H Macrocytosis Marked A APTT D-Dimer ABG pH 7.09 L* ABG pCO2 66 H ABG pO2 283 H ABG HCO3 20 L ABG Total CO2 ABG O2 Saturation 99.4 H Sodium Chloride Carbon Dioxide BUN Glucose POC Glucose (mg/dL) 256 H Plasma Lactic Acid Fredy Calcium Total Bilirubin AST ALT Total Creatine Kinase Total Protein Albumin 01/31/21 01/31/21 01/31/21 00:01 05:09 05:10 WBC 13.9 H RBC 3.89 L MCV 106.1 H Neutrophils # (Manual) Monocytes # (Manual) Metamyelocytes # (Man) Macrocytosis APTT D-Dimer ABG pH ABG pCO2 49 H ABG pO2 214 H ABG HCO3 27 H 26 H ABG Total CO2 28 H 27 H ABG O2 Saturation 99.8 H 98.3 H Sodium Chloride Carbon Dioxide BUN Glucose POC Glucose (mg/dL) Plasma Lactic Acid Fredy Calcium Total Bilirubin AST ALT Total Creatine Kinase Total Protein Albumin 01/31/21 01/31/21 05:10 06:24 WBC RBC MCV Neutrophils # (Manual) Monocytes # (Manual) Metamyelocytes # (Man) Macrocytosis APTT D-Dimer ABG pH ABG pCO2 ABG pO2 ABG HCO3 ABG Total CO2 ABG O2 Saturation Sodium 136 L Chloride Carbon Dioxide BUN 34 H Glucose 222 H POC Glucose (mg/dL) 201 H Plasma Lactic Acid Fredy Calcium Total Bilirubin AST 151 H ALT 87 H Total Creatine Kinase Total Protein 5.2 L Albumin 2.5 L Assessment and Plan Assessment: * Respiratory arrest, and subsequent cardiac arrest with prolonged downtime of around 15-20 minutes. * Myoclonus with intermittent myoclonic jerks associated with burst suppressed pattern on EEG, consistent with severe anoxic encephalopathy. * Probable community-acquired pneumonia with superimposed aspiration pneumonia. * Normal coronary angiography. * Obesity Plan: * Stat EEG performed. It revealed severe suppression, with intermittent burst of high amplitude generalized spike/polyspike and wave lasting for 1-2 secon ds, associated clinically with whole body myoclonic jerks. This EEG pattern indicates severe anoxic encephalopathy, with underlying cortical irritability and tendency for seizures. * Patient has been loaded with Keppra 1000 mg twice a day, and also Dilantin 1 g. We will give another 750 mg of Dilantin. Check Dilantin level 4 hours after the infusion. Continue Keppra 1000 mg twice a day. * Patient resumed on propofol to control seizure activity. * We will follow patient clinically. Addendum: Patient continued to have intermittent generalized myoclonic jerks. Patient's propofol increased to 50 g, given extra loading dose of Dilantin 500 mg, started Depacon 2 g IV loading dose. After these measures, patient's myoclonus seems to improve significantly and was nearly resolved. Spoke to patient's fianc in detail, discussed about current condition and prognosis.
--- NOTE | 2021-01-31 11:34 | P.HPIM ---
History of Present Illness This is a pleasant 60 years old male with past medical history of hypertension, hyperlipidemia, diabetes mellitus, atrial fibrillation, on Eliquis, osteoarthritis Patient presents with cardiac arrest, he is developed ventricular fibrillation and got shocked by EMS staff. Also he was intubated on the presentation. Per documents patient was called for shortness of breath but he collapsed in front of the EMS staff. Patient currently intubated and cannot provide information. He was undergoing EEG with video monitoring and noted to have frequent myoclonic jerks of the upper part of the body. Neurology service or the informed and came to see the patient who recommended an extra dose of Dilantin while monitoring level. Natalia covington refer to neurology for more details. As per neurologist this could be evidence of anoxic brain injury On presentation he was tachycardic, hypotensive and tachypneic. Currently blood pressure is 105/62, his FiO2 of 50% and oxygen saturation of 95%. Labs showing mild leukocytosis of 17.3 and 13.9 K Lars of CBC is unremarkable. D-dimer is slightly elevated at 1.6. Last pH is normal at 7.3, normal pCO2 of 44 and normal pO2 of 104. BMP is unremarkable with normal creatinine at 1.1. Glucose is slightly elevated at 201. Liver enzymes slightly elevated with AST 151 and ALT 87. Bilirubin within the reference range of 1.2. Troponin is normal at 0.2 CT of the brain: Cerebral atrophy. No acute intracranial abnormality CTA of the chest: No pulmonary embolism, multifocal patchy airspace opacity throughout the bilateral lungs. Ascending thoracic aortic ectasia 4.5 cm. Multiple nondisplaced left rib fractures deformity status post CPR In the emergency room he was started on Levophed and heparin drip with cardiology, pulmonary/critical care and neurology team were consulted Review of Systems N/a, Past Medical History Past Medical History: Atrial Fibrillation, Diabetes Mellitus, Hyperlipidemia, Hypertension, Osteoarthritis (OA) Additional Past Medical History / Comment(s): hx. kidney stones History of Any Multi-Drug Resistant Organisms: None Reported Past Surgical History: Adenoidectomy, Tonsillectomy Additional Past Surgical History / Comment(s): CARDIOVERSION FOR A FIB Past Anesthesia/Blood Transfusion Reactions: No Reported Reaction Past Psychological History: Depression Smoking Status: Unknown if ever smoked Past Alcohol Use History: Unable to Obtain Past Drug Use History: Unable to Obtain - Past Family History Mother Family Medical History: Cancer Medications and Allergies Home Medications Medication Instructions Recorded Confirmed Type lisinopriL [Zestril] 2.5 mg PO DAILY 11/12/16 01/30/21 History Apixaban [Eliquis] 5 mg PO BID 02/11/18 01/30/21 History metFORMIN HCL [Glucophage] 500 mg PO BID 02/11/18 01/30/21 History Carvedilol [Coreg] 3.125 mg PO BID 08/11/20 01/30/21 History Ergocalciferol (Vitamin D2) 2,500 mcg PO DIRECTED 08/11/20 01/30/21 History [Vitamin D2 (50,000 Iu)] Prazosin HCl 2 mg PO HS 08/11/20 01/30/21 History traZODone HCL 300 mg PO HS 08/11/20 01/30/21 History Aspirin EC [Ecotrin Low Dose] 81 mg PO DAILY 01/30/21 01/30/21 History buPROPion HCL [buPROPion HCL Xl] 150 mg PO DAILY 01/30/21 01/30/21 History Allergies Allergy/AdvReac Type Severity Reaction Status Date / Time No Known Allergies Allergy Verified 01/30/21 21:14 Physical Exam Vitals: Vital Signs Temp Pulse Pulse Resp BP Pulse Ox 01/31/21 07:00 72 27 H 105/62 95 01/31/21 06:00 73 45 H 117/69 96 01/31/21 05:00 71 35 H 115/70 96 01/31/21 04:00 72 71 45 H 135/67 98 01/31/21 03:00 71 16 127/80 98 01/31/21 02:00 73 19 112/72 98 01/31/21 00:15 68 20 124/73 98 01/31/21 00:00 98.6 F 66 71 45 H 123/76 99 01/30/21 23:00 51 L 28 H 107/77 99 01/30/21 22:00 79 17 98/79 99 01/30/21 21:00 98.6 F 81 14 98/79 98 01/30/21 20:00 91 71 99 01/30/21 18:20 102 H 18 114/71 01/30/21 18:15 98 18 117/70 01/30/21 18:05 104 H 18 01/30/21 18:00 103 H 13 141/76 100 01/30/21 17:55 101 H 110/72 01/30/21 17:53 89 5 L 110/72 01/30/21 17:50 98 18 88/53 01/30/21 17:45 42 L 76/57 01/30/21 17:39 115 H 80/59 01/30/21 17:34 115 H 14 120/93 Intake and Output 01/30/21 01/31/21 01/31/21 22:59 06:59 14:59 Intake Total 103.225 2528.974 100 Output Total 250 470 55 Balance 271.924 537.974 45 Intake: IV 120 Intake, IV Titration 757.341 5636.974 100 Amount Norepinephrine 4 mg In 207.974 Sodium Chloride 0.9% 250 ml @ 0.05 MCG/KG/MIN 25. 26 mls/hr IV .Q10H4M [facility] Rx#:[id number] Norepinephrine 8 mg In 1.924 Sodium Chloride 0.9% 250 ml @ 0.05 MCG/KG/MIN 12. 829 mls/hr IV .Q20H7M [facility] Rx#:[id number] Sodium Chloride 0.9% 1, 100 500 100 000 ml @ 100 mls/hr IV . Q10H [facility] Rx#:[id number] propofoL 1,000 mg In 300 300 propofoL 1,000 ml @ Titrate IV .Q0M [facility] Rx#: [id number] Output: Urine 250 470 55 Other: Weight 132.6 kg 129.8 kg ABP, PAP, CO, CI - Last 8 Hours Arterial Blood Pressure 116/68 Arterial Blood Pressure 114/64 Arterial Blood Pressure 118/66 -GENERAL: The patient is intubated and sedated HEENT: Pupils are round and equally reacting to light. EOMI. No scleral icterus. No conjunctival pallor. Normocephalic, atraumatic. No pharyngeal erythema. No thyromegaly. CARDIOVASCULAR: S1 and S2 present. No murmurs, rubs, or gallops. PULMONARY: Chest is clear to auscultation, no wheezing or crackles. ABDOMEN: Soft, nontender, nondistended, normoactive bowel sounds. No palpable organomegaly. MUSCULOSKELETAL: No joint swelling or deformity. EXTREMITIES: No cyanosis, clubbing, or pedal edema. NEUROLOGICAL: Gross neurological examination did not reveal any focal deficits. SKIN: No rashes. No petechiae Results CBC & Chem 7: 01/31/21 05:10 01/31/21 05:10 Labs: Abnormal Lab Results - Last 24 Hours (Table) 01/30/21 01/30/21 01/30/21 Range/Units 17:33 17:47 17:47 WBC (3.8-10.6) k/uL RBC (4.30-5.90) m/uL MCV (80.0-100.0) fL Neutrophils # (Manual) (1.3-7.7) k/uL Monocytes # (Manual) (0-1.0) k/uL Metamyelocytes # (Man) (0) k/uL Macrocytosis APTT 21.3 L (22.0-30.0) sec D-Dimer (<0.60) mg/L FEU ABG pH (7.35-7.45) ABG pCO2 (35-45) mmHg ABG pO2 (83-108) mmHg ABG HCO3 (21-25) mmol/L ABG Total CO2 (19-24) mmol/L ABG O2 Saturation (94-97) % Sodium 135 L (137-145) mmol/L Chloride 96 L (98-107) mmol/L Carbon Dioxide 19 L (22-30) mmol/L BUN 25 H (9-20) mg/dL Glucose 291 H (74-99) mg/dL POC Glucose (mg/dL) 277 H (75-99) mg/dL Plasma Lactic Acid Fredy (0.7-2.0) mmol/L Calcium 11.3 H (8.4-10.2) mg/dL Total Bilirubin 1.9 H (0.2-1.3) mg/dL AST 123 H (17-59) U/L ALT 51 H (4-49) U/L Total Creatine Kinase (55-170) U/L Total Protein 5.9 L (6.3-8.2) g/dL Albumin 3.1 L (3.5-5.0) g/dL 01/30/21 01/30/21 01/30/21 Range/Units 17:47 17:47 17:47 WBC (3.8-10.6) k/uL RBC (4.30-5.90) m/uL MCV (80.0-100.0) fL Neutrophils # (Manual) (1.3-7.7) k/uL Monocytes # (Manual) (0-1.0) k/uL Metamyelocytes # (Man) (0) k/uL Macrocytosis APTT (22.0-30.0) sec D-Dimer 1.64 H (<0.60) mg/L FEU ABG pH (7.35-7.45) ABG pCO2 (35-45) mmHg ABG pO2 (83-108) mmHg ABG HCO3 (21-25) mmol/L ABG Total CO2 (19-24) mmol/L ABG O2 Saturation (94-97) % Sodium (137-145) mmol/L Chloride (98-107) mmol/L Carbon Dioxide (22-30) mmol/L BUN (9-20) mg/dL Glucose (74-99) mg/dL POC Glucose (mg/dL) (75-99) mg/dL Plasma Lactic Acid Fredy 11.1 H* (0.7-2.0) mmol/L Calcium (8.4-10.2) mg/dL Total Bilirubin (0.2-1.3) mg/dL AST (17-59) U/L ALT (4-49) U/L Total Creatine Kinase 30 L (55-170) U/L Total Protein (6.3-8.2) g/dL Albumin (3.5-5.0) g/dL 01/30/21 01/30/21 01/30/21 Range/Units 17:48 17:50 23:19 WBC 17.3 H (3.8-10.6) k/uL RBC (4.30-5.90) m/uL MCV 110.0 H (80.0-100.0) fL Neutrophils # (Manual) 10.80 H (1.3-7.7) k/uL Monocytes # (Manual) 2.25 H (0-1.0) k/uL Metamyelocytes # (Man) 0.17 H (0) k/uL Macrocytosis Marked A APTT (22.0-30.0) sec D-Dimer (<0.60) mg/L FEU ABG pH 7.09 L* (7.35-7.45) ABG pCO2 66 H (35-45) mmHg ABG pO2 283 H (83-108) mmHg ABG HCO3 20 L (21-25) mmol/L ABG Total CO2 (19-24) mmol/L ABG O2 Saturation 99.4 H (94-97) % Sodium (137-145) mmol/L Chloride (98-107) mmol/L Carbon Dioxide (22-30) mmol/L BUN (9-20) mg/dL Glucose (74-99) mg/dL POC Glucose (mg/dL) 256 H (75-99) mg/dL Plasma Lactic Acid Fredy (0.7-2.0) mmol/L Calcium (8.4-10.2) mg/dL Total Bilirubin (0.2-1.3) mg/dL AST (17-59) U/L ALT (4-49) U/L Total Creatine Kinase (55-170) U/L Total Protein (6.3-8.2) g/dL Albumin (3.5-5.0) g/dL 01/31/21 01/31/21 01/31/21 Range/Units 00:01 05:09 05:10 WBC 13.9 H (3.8-10.6) k/uL RBC 3.89 L (4.30-5.90) m/uL MCV 106.1 H (80.0-100.0) fL Neutrophils # (Manual) (1.3-7.7) k/uL Monocytes # (Manual) (0-1.0) k/uL Metamyelocytes # (Man) (0) k/uL Macrocytosis APTT (22.0-30.0) sec D-Dimer (<0.60) mg/L FEU ABG pH (7.35-7.45) ABG pCO2 49 H (35-45) mmHg ABG pO2 214 H (83-108) mmHg ABG HCO3 27 H 26 H (21-25) mmol/L ABG Total CO2 28 H 27 H (19-24) mmol/L ABG O2 Saturation 99.8 H 98.3 H (94-97) % Sodium (137-145) mmol/L Chloride (98-107) mmol/L Carbon Dioxide (22-30) mmol/L BUN (9-20) mg/dL Glucose (74-99) mg/dL POC Glucose (mg/dL) (75-99) mg/dL Plasma Lactic Acid Fredy (0.7-2.0) mmol/L Calcium (8.4-10.2) mg/dL Total Bilirubin (0.2-1.3) mg/dL AST (17-59) U/L ALT (4-49) U/L Total Creatine Kinase (55-170) U/L Total Protein (6.3-8.2) g/dL Albumin (3.5-5.0) g/dL 01/31/21 01/31/21 Range/Units 05:10 06:24 WBC (3.8-10.6) k/uL RBC (4.30-5.90) m/uL MCV (80.0-100.0) fL Neutrophils # (Manual) (1.3-7.7) k/uL Monocytes # (Manual) (0-1.0) k/uL Metamyelocytes # (Man) (0) k/uL Macrocytosis APTT (22.0-30.0) sec D-Dimer (<0.60) mg/L FEU ABG pH (7.35-7.45) ABG pCO2 (35-45) mmHg ABG pO2 (83-108) mmHg ABG HCO3 (21-25) mmol/L ABG Total CO2 (19-24) mmol/L ABG O2 Saturation (94-97) % Sodium 136 L (137-145) mmol/L Chloride (98-107) mmol/L Carbon Dioxide (22-30) mmol/L BUN 34 H (9-20) mg/dL Glucose 222 H (74-99) mg/dL POC Glucose (mg/dL) 201 H (75-99) mg/dL Plasma Lactic Acid Fredy (0.7-2.0) mmol/L Calcium (8.4-10.2) mg/dL Total Bilirubin (0.2-1.3) mg/dL AST 151 H (17-59) U/L ALT 87 H (4-49) U/L Total Creatine Kinase (55-170) U/L Total Protein 5.2 L (6.3-8.2) g/dL Albumin 2.5 L (3.5-5.0) g/dL Thrombosis Risk Factor Assmnt - Choose All That Apply Each Factor Represents 1 point: Age 41-60 years, Obesity (BMI >25), Swollen legs (current) Thrombosis Risk Factor Assessment Total Risk Factor Score: 3 Thrombosis Risk Factor Assessment Level: Moderate Risk Assessment and Plan Assessment: Status post cardiac arrest, status post V. fib and electric shock. Rule out acute coronary syndrome Hypoxic respiratory failure status post intubation bilateral multifocal patchy airspace disease Left multiple rib fractures secondary to CPR possible anoxic brain injury Possible septic shock, unknown source of infection Possible seizure Myoclonic jerks History of Hypertension Hyperlipidemia Diabetes mellitus Chronic atrial fibrillation on Eliquis History of osteoarthritis Plan: This is a pleasant 60 years old male who presents with cardiac arrest and V. fib. Currently he is intubated and in the ICU Continue with Levophed Continue with heparin drip. A order takers supervisor recommendation Patient currently on Keppra and Dilantin with neurology service on the case patient is on Zosyn. Follow-up blood culture, send urine Several consults on the case including pulmonary/critical care, cardiology and neurology Labs and medication were reviewed.. Continue same treatment. Continue with symptomatic treatment. Resume home medication. Monitor lytes and vitals. DVT and GI prophylaxis. Further recommendations depends on the clinical course of the patient DVT prophylaxis: heparin GI Prophylaxis: Pepcid Prognosis is guarded
--- NOTE | 2021-01-31 11:34 | P.CRDCN ---
History of Present Illness History of present illness: HISTORY OF PRESENTING ILLNESS This is a pleasant 60-year-old male past medical history significant for paroxysmal atrial fibrillation (on eliquis), hypertension, dyslipidemia, aortic regurgitation, type 2 diabetes, tobacco use. He follows in the office with Dr. Knox. We have been asked to see in consultation for cardiopulmonary arrest. Patient is seen and examined in the intensive care unit. Unable to get information from patient at this time, HPI obtained from chart review. Per emergency department note, 01/30 patient originally called EMS due to shortness of breath. EMS stated that patient was found clammy and nausea with episode of emesis. Patient then became unresponsive, pulseless. CPR was immediately started, intubated by EMS. Initial rhythm was V fib, he did recieve one de fribtillation in the field, he became asystole, 2 doses of epinephrine was given and patient was transported to emergency department and active cardiac arrest with CPR was in progress. One round of CPR was performed, 1 of epinephrine, 1 amp of bicarb, 1 amp of calcium. ROSC was obtained. Post ROSC EKG was concerning for an acute inferior ST segment elevation myocardial infarction. STEMI was called. Patient underwent cardiac catheterization with Dr. King on 01/30 which revealed normal coronary arteries and normal LVEDP. Overnight, patient started having jerky body movements which apparently appeared to be typical myoclonic jerks. Patient was started the patient on IV Keppra and also given Dilantin 1g. He is on a mechanical ventilator. Vent settings are assist-control mode at the rate of 28 with a tidal volume of 500 and FiO2 of 50% with a PEEP of 5. Patient is currently on IV propofol, IV norepinephrine, IV keppra. He currently maintaining sinus mechanism. CTA Chest was negative for pulmonary embolism, did reveal moderate multifocal patchy airspace opacities throughout the bilateral lungs, ascending thoracic aorta 4.5cm. Brain CT revealed no acute intracranial abnormality. Cerebral atrophy. Chest x-ray 01/31 revealed patient is rotated, bilateral patchy increased densities within the lung, persistent blunting of the left costophrenic angle. Echocardiogram revealed EF 50-55%, LA is moderately dilated, mild regurgitation, mild tricuspid regurgitation, aortic root and ascending aorta dilated measuring up to 4.5cm. Laboratory data reviewed, COVID-19 PCR pending, WBC 13.9, hemoglobin 13.3, platelets 263, sodium 136, potassium 4.3, BUN 34, serum creatinine 1.14, proBNP 1000 320, troponin negative 1, second troponin 0.06 Current home cardiac medications include Eliquis 5 mg twice a day, core at 3.125 mg twice a day, lisinopril 2.5 mg daily, aspirin 81 mg daily. REVIEW OF SYSTEMS At the time of my exam: Unable to get accurate review of systems from patient due to intubated and sedated PHYSICAL EXAMINATION Blood pressure 113/64 heart rate 72 afebrile. CONSTITUTIONAL: Intubated Sedated HEENT: Head is normocephalic. Pupils are equal, round. Sclerae anicteric. Mucous membranes of the mouth are moist. No JVD. No carotid bruit. CHEST EXAMINATION: Lungs are diminished bilaterally, with rhonchi and bilateral crackles in bases. HEART EXAMINATION: Regular rate and rhythm. S1, S2 heard. No murmurs, gallops or rub. ABDOMEN: Soft, nontender. Positive bowel sounds. EXTREMITIES: 2+ peripheral pulses, no lower extremity edema SKIN: Right femoral cath site clean dry no hematoma present NEUROLOGIC EXAMINATION: Intubated Sedated ASSESSMENT Ventricular fibrillation arrest, s/p cardiac catheterization with no evidence of coronary artery disease Acute hypoxic respiratory failure requiring intubation and mechanical ventillation Bilateral pneumonia Lactic acidosis Leukocytosis History of paroxysmal atrial fibrillation on Eliquis at home History of hypertension Dyslipidemia Type 2 Diabetes PLAN Echocardiogram obtained and reviewed Patient is status post cardiac catheterization that revealed normal coronary arteries Will start patient on IV heparin drip for thromboembolism protection COVID-19 PCR pending Pulmonary following Neurology consulted Further recommendations based on clinical course Nurse Practitioner note has been reviewed, I agree with a documented findings and plan of care. Patient was seen and examined. Past Medical History Past Medical History: Atrial Fibrillation, Diabetes Mellitus, Hyperlipidemia, Hypertension, Osteoarthritis (OA) Additional Past Medical History / Comment(s): hx. kidney stones History of Any Multi-Drug Resistant Organisms: None Reported Past Surgical History: Adenoidectomy, Tonsillectomy Additional Past Surgical History / Comment(s): CARDIOVERSION FOR A FIB Past Anesthesia/Blood Transfusion Reactions: No Reported Reaction Past Psychological History: Depression Smoking Status: Unknown if ever smoked Past Alcohol Use History: Unable to Obtain Past Drug Use History: Unable to Obtain - Past Family History Mother Family Medical History: Cancer Medications and Allergies Home Medications Medication Instructions Recorded Confirmed Type lisinopriL [Zestril] 2.5 mg PO DAILY 11/12/16 01/30/21 History Apixaban [Eliquis] 5 mg PO BID 02/11/18 01/30/21 History metFORMIN HCL [Glucophage] 500 mg PO BID 02/11/18 01/30/21 History Carvedilol [Coreg] 3.125 mg PO BID 08/11/20 01/30/21 History Ergocalciferol (Vitamin D2) 2,500 mcg PO DIRECTED 08/11/20 01/30/21 History [Vitamin D2 (50,000 Iu)] Prazosin HCl 2 mg PO HS 08/11/20 01/30/21 History traZODone HCL 300 mg PO HS 08/11/20 01/30/21 History Aspirin EC [Ecotrin Low Dose] 81 mg PO DAILY 01/30/21 01/30/21 History buPROPion HCL [buPROPion HCL Xl] 150 mg PO DAILY 01/30/21 01/30/21 History Allergies Allergy/AdvReac Type Severity Reaction Status Date / Time No Known Allergies Allergy Verified 01/30/21 21:14 Physical Exam Vitals: Vital Signs Temp Pulse Pulse Resp BP Pulse Ox 01/31/21 07:00 72 27 H 105/62 95 01/31/21 06:00 73 45 H 117/69 96 01/31/21 05:00 71 35 H 115/70 96 01/31/21 04:00 72 71 45 H 135/67 98 01/31/21 03:00 71 16 127/80 98 01/31/21 02:00 73 19 112/72 98 01/31/21 00:15 68 20 124/73 98 01/31/21 00:00 98.6 F 66 71 45 H 123/76 99 01/30/21 23:00 51 L 28 H 107/77 99 01/30/21 22:00 79 17 98/79 99 01/30/21 21:00 98.6 F 81 14 98/79 98 01/30/21 20:00 91 71 99 01/30/21 18:20 102 H 18 114/71 01/30/21 18:15 98 18 117/70 01/30/21 18:05 104 H 18 01/30/21 18:00 103 H 13 141/76 100 01/30/21 17:55 101 H 110/72 08/24/21 17:53 89 5 L 110/72 01/30/21 17:50 98 18 88/53 01/30/21 17:45 42 L 76/57 01/30/21 17:39 115 H 80/59 01/30/21 17:34 115 H 14 120/93 Intake and Output 01/30/21 01/31/21 01/31/21 22:59 06:59 14:59 Intake Total 870.031 5490.974 100 Output Total 250 470 55 Balance 271.924 537.974 45 Intake: IV 120 Intake, IV Titration 267.906 5044.974 100 Amount Norepinephrine 4 mg In 207.974 Sodium Chloride 0.9% 250 ml @ 0.05 MCG/KG/MIN 25. 26 mls/hr IV .Q10H4M [facility] Rx#:[id number] Norepinephrine 8 mg In 1.924 Sodium Chloride 0.9% 250 ml @ 0.05 MCG/KG/MIN 12. 829 mls/hr IV .Q20H7M ONE Rx#:[id number] Sodium Chloride 0.9% 1, 100 500 100 000 ml @ 100 mls/hr IV . Q10H [facility] Rx#:[id number] propofoL 1,000 mg In 300 300 propofoL 1,000 ml @ Titrate IV .Q0M [facility] Rx#: [id number] Output: Urine 250 470 55 Other: Weight 132.6 kg 129.8 kg ABP, PAP, CO, CI - Last 8 Hours Arterial Blood Pressure 116/68 Arterial Blood Pressure 114/64 Arterial Blood Pressure 118/66 Results 01/31/21 05:10 01/31/21 05:10 Cardiac Enzymes 01/30/21 01/30/21 01/31/21 Range/Units 17:47 17:47 05:10 AST 123 H 151 H (17-59) U/L CK-MB (CK-2) 0.5 (0.0-2.4) ng/mL Troponin I 0.025 (0.000-0.034) ng/mL Coagulation 01/30/21 Range/Units 17:47 PT 11.1 (9.0-12.0) sec APTT 21.3 L (22.0-30.0) sec CBC 01/30/21 01/31/21 Range/Units 17:48 05:10 WBC 17.3 H 13.9 H (3.8-10.6) k/uL RBC 4.44 3.89 L (4.30-5.90) m/uL Hgb 15.6 13.3 (13.0-17.5) gm/dL Hct 48.8 41.2 (39.0-53.0) % Plt Count 263 (150-450) k/uL Comprehensive Metabolic Panel 01/30/21 01/31/21 Range/Units 17:47 05:10 Sodium 135 L 136 L (137-145) mmol/L Potassium 5.0 4.3 (3.5-5.1) mmol/L Chloride 96 L 105 (98-107) mmol/L Carbon Dioxide 19 L 24 (22-30) mmol/L BUN 25 H 34 H (9-20) mg/dL Creatinine 1.12 1.14 (0.66-1.25) mg/dL Glucose 291 H 222 H (74-99) mg/dL Calcium 11.3 H 9.1 (8.4-10.2) mg/dL AST 123 H 151 H (17-59) U/L ALT 51 H 87 H (4-49) U/L Alkaline Phosphatase 92 88 (38-126) U/L Total Protein 5.9 L 5.2 L (6.3-8.2) g/dL Albumin 3.1 L 2.5 L (3.5-5.0) g/dL Current Medications Generic Name Dose Route Start Last Admin Trade Name Freq PRN Reason Stop Dose Admin Chlorhexidine Gluconate 15 ml 01/31/21 09:00 Chlorhexidine Gluconate 15 Ml Cup MUCOUS MEM BID RAMÍREZ Fentanyl Citrate 1,000 mcg/ 100 mls @ 0 mls/hr 01/30/21 18:30 Sodium Chloride IV .Q0M RAM[facility]REZ Protocol Titrate Norepinephrine Bitartrate 4 mg 254 mls @ 25.26 mls/hr 01/30/21 21:45 01/31/21 06:16 / Sodium Chloride IV 0.1 mcg/kg/min .Q10H4M RAMÍREZ 50.521 mls/hr Administration Protocol 0.05 MCG/KG/MIN Sodium Chloride 1,000 mls @ 100 mls/hr 01/30/21 21:45 01/30/21 21:50 Saline 0.9% IV 100 mls/hr .Q10H RAMÍREZ Administration Propofol 1,000 mg/ IV Solution 100 mls @ 0 mls/hr 01/30/21 23:15 01/31/21 02:43 IV 10 mcg/kg/min .Q0M RAMÍREZ 7.956 mls/hr Administration Protocol Titrate Levetiracetam 1,000 mg/ IV 100 mls @ 400 mls/hr 01/30/21 23:45 01/31/21 00:22 Solution IVPB 400 mls/hr Q12H RAMÍREZ Administration Insulin Aspart 0 unit 01/31/21 07:00 01/31/21 07:13 Insulin Aspart (Novolog) 100 Unit/Ml Vial SQ 4 unit Q6HR RAM[facility]REZ Administration Protocol Intake and Output 01/30/21 01/31/21 01/31/21 22:59 06:59 14:59 Intake Total 956.348 3438.974 100 Output Total 250 470 55 Balance 271.924 537.974 45 Intake: IV 120 Intake, IV Titration 283.736 6443.974 100 Amount Norepinephrine 4 mg In 207.974 Sodium Chloride 0.9% 250 ml @ 0.05 MCG/KG/MIN 25. 26 mls/hr IV .Q10H4M [facility] Rx#:[id number] Norepinephrine 8 mg In 1.924 Sodium Chloride 0.9% 250 ml @ 0.05 MCG/KG/MIN 12. 829 mls/hr IV .Q20H7M [facility] Rx#:[id number] Sodium Chloride 0.9% 1, 100 500 100 000 ml @ 100 mls/hr IV . Q10H [facility] Rx#:[id number] propofoL 1,000 mg In 300 300 propofoL 1,000 ml @ Titrate IV .Q0M [facility] Rx#: [id number] Output: Urine 250 470 55 Other: Weight 132.6 kg 129.8 kg 01/31/21 05:10 01/31/21 05:10
[2021-01-31 11:46] LABS: Glucose,Whole Blood 221 mg/dL (75-99)
[2021-01-31] MEDS ORDERED: INSULIN ASPART (NovoLOG) 100 UNIT/ML VIAL SQ SCH (12:00)
[2021-01-31 12:03] LABS: Amorphous Sediment,Urine Many /hpf; Appearance,Urine Turbid (Clear); Bilirubin,Urine 1+ (Negative); Blood,Urine Moderate (Negative); Color,Urine Dark Yellow; Glucose,Urine (UA) 1+ (Negative); Ketones,Urine 1+ (Negative); Leukocyte Esterase,Urine Trace (Negative); Mucus,Urine Rare /hpf; Nitrite,Urine Negative (Negative); Protein,Urine 1+ (Negative); RBC,Urine 17 /hpf (0-5); Uric Acid Crystals,Urine Few /hpf
[2021-01-31 12:09] LABS: Specific Gravity,Urine >1.050 (1.001-1.035)
[2021-01-31] MEDS: SODIUM CHLORIDE 0.9% 1,000 ML IV SCH ×2 (12:25→18:49)
--- NOTE | 2021-01-31 13:00 | EEG ---
ELECTROENCEPHALOGRAM REPORT DATE OF SERVICE: 01/31/2021 PREAMBLE: This is a 60-year-old male who has history of cardiac arrest. This study is performed to evaluate for any epileptiform activity. EEG FINDINGS: This is a 21-channel portable EEG recording in a patient utilizing 10/20 international system with referential and bipolar montages. Background consists of very severely suppressed background activity in bihemispheric region, intermixed with bursts of generalized spike and slow wave in bihemispheric region lasting for about 2 seconds. Clinically this activity is associated with generalized myoclonic jerks of the body. This epileptiform activity was occurring every 10-12 seconds, lasting for about 2-3 seconds. These bursts of epileptiform activity became less frequent when propofol was restarted. IMPRESSION: Severely abnormal EEG due to presence of a burst suppressed pattern. This consists of bursts of high amplitude generalized spike/polyspike and wave abnormality lasting for 2 seconds followed by a severely suppressed background for about 10 seconds. The burst activity is clinically associated with generalized myoclonic jerks. This EEG pattern is mostly consistent with very severe anoxic encephalopathy. Clinical correlation and follow-up EEG recommended, if clinically indicated. MMODL / IJN: [id number] / MTDD
[2021-01-31 16:33] LABS: Partial Thromboplastin Time 25.5 sec (22.0-30.0); Prothrombin Time 10.4 sec (9.0-12.0)
[2021-01-31] MEDS ORDERED: MIDAZOLAM HCL 50 MG in SODIUM CHLORIDE 0.9% 40 ML IV SCH (20:15)
[2021-01-31] MEDS ORDERED: MIDAZOLAM 1 MG/ML 5 ML VIAL IV STA (20:16)
[2021-01-31] MEDS: VALPROATE SODIUM IVPB ONE ×2 (20:43→20:55)
[2021-01-31] MEDS: SODIUM CHLORIDE 0.9% IVPB ONE ×2 (20:43→20:55)
[2021-01-31 21:45] LABS: Urine Alcohol Negative (Negative); Urine Barbiturate Negative (Negative); Urine Cocaine Negative (Negative); Urine Methadone Negative (Negative); Urine Opiates Negative (Negative); Urine Phencyclidine Negative (Negative)
[2021-01-31] MEDS: AZITHROMYCIN 500 MG in SODIUM CHLORIDE 0.9% 250 ML IVPB SCH (22:00)
[2021-01-31] MEDS ORDERED: PHENYTOIN SODIUM INJ 500 MG in SODIUM CHLORIDE 0.9% 100 ML IVPB STA (23:35)
[2021-02-01] MEDS: PIPERACILLIN-TAZOBACTAM 3.375 GM in SODIUM CHLORIDE 0.9% 100 ML IVPB SCH ×4 (00:17→23:22)
[2021-02-01 02:25] LABS: ALT 67 U/L (4-49); AST 60 U/L (17-59); African American GFR (CKD) >90 (>60 ml/min/1.73 sqM); Albumin 2.8 g/dL (3.5-5.0); Alkaline Phosphatase 87 U/L (38-126); Anion Gap 7 mmol/L; Blood Urea Nitrogen 27 mg/dL (9-20); Carbon Dioxide 24 mmol/L (22-30); Chloride 107 mmol/L (98-107); Glucose 224 mg/dL (74-99); Magnesium 2.3 mg/dL (1.6-2.3); Non-African American GFR(CKD) >90 (>60 ml/min/1.73 sqM); Phenytoin (Dilantin) 4.7 ug/mL; Potassium 3.6 mmol/L (3.5-5.1); Sodium 138 mmol/L (137-145); Total Bilirubin 0.9 mg/dL (0.2-1.3); Total Protein 5.8 g/dL (6.3-8.2)
[2021-02-01 02:27] LABS: Glucose,Whole Blood 200 mg/dL (75-99)
[2021-02-01] MEDS: INSULIN ASPART (NovoLOG) 100 UNIT/ML VIAL SQ SCH ×4 (02:38→17:12)
[2021-02-01 02:45] LABS: Prothrombin Time 10.7 sec (9.0-12.0)
[2021-02-01] MEDS: IPRATROPIUM-ALBUTEROL 3 ML NEB INHALATION SCH ×6 (03:10→23:23)
[2021-02-01 03:21] LABS: Basophils # (A) 0.1 k/uL (0-0.2); Basophils % (A) 0 %; Eosinophils % (A) 0 %; HCT 41.7 % (39.0-53.0); HGB 13.2 gm/dL (13.0-17.5); Hypochromasia Slight; Lymphocytes % (A) 4 %; MCHC 31.6 g/dL (31.0-37.0); MCV 107.5 fL (80.0-100.0); Macrocytosis Marked; Mean Platelet Volume 9.3; Monocytes # (A) 0.9 k/uL (0-1.0); Monocytes % (A) 4 %; Neutrophils % (A) 90 %; Platelet Count 264 k/uL (150-450); RBC 3.88 m/uL (4.30-5.90); WBC 22.3 k/uL (3.8-10.6)
[2021-02-01] MEDS: SODIUM CHLORIDE 0.9% 1,000 ML IV SCH ×3 (03:43→23:21)
[2021-02-01] MEDS: NOREPINEPHRINE 4 MG in SODIUM CHLORIDE 0.9% 250 ML IV SCH (04:40)
--- NOTE | 2021-02-01 06:44 | XR ---
EXAMINATION TYPE: XR chest 1V portable DATE OF EXAM: 02/01/2021 COMPARISON: Chest x-ray 01/31/2021 HISTORY: Intubated TECHNIQUE: Single frontal view of the chest is obtained. FINDINGS: Endotracheal tube, left subclavian central venous catheter are overlying appropriate posit ions, there is been interval repositioning of NG tube, distal aspect not included on exam, tube cours ing towards the left hemiabdomen. Pleural-parenchymal changes are similar to prior exam. Heart size n ot significantly changed. IMPRESSION: Interval NG tube reposition. Correlate for pneumonia, edema, ARDS
[2021-02-01 06:49] LABS: ABG Base Excess 1.4 mmol/L; ABG HCO3 27 mmol/L (21-25); ABG PCO2 47 mmHg (35-45); ABG PH 7.36 (7.35-7.45); ABG PO2 66 mmHg (83-108); ABG TCO2 28 mmol/L (19-24); Allen Test Performed? no
[2021-02-01 07:08] LABS: Glucose,Whole Blood 265 mg/dL (75-99)
[2021-02-01] MEDS ORDERED: Potassium Replacement Protocol 1 EACH MISC MISCELLANE PRN (07:13)
[2021-02-01] MEDS ORDERED: AZITHROMYCIN 500 MG in SODIUM CHLORIDE 0.9% 250 ML IVPB SCH (09:00)
[2021-02-01] MEDS ORDERED: PHENYTOIN SODIUM INJ 750 MG in SODIUM CHLORIDE 0.9% 100 ML IVPB STA (09:30)
[2021-02-01] MEDS: CHLORHEXIDINE GLUCONATE 15 ML CUP MUCOUS MEM SCH ×2 (10:21→20:37)
[2021-02-01] MEDS: FAMOTIDINE 20 MG/2 ML VIAL IV SCH ×2 (10:21→20:37)
[2021-02-01 11:51] LABS: Glucose,Whole Blood 201 mg/dL (75-99)
[2021-02-01] MEDS: POTASSIUM CHLORIDE 20 MEQ in WATER FOR INJECTION 1 100ML.BAG IVPB SCH ×2 (11:57→17:11)
[2021-02-01] MEDS: levETIRAcetam IV 1,000 MG in SALINE 1 100ML.BAG IVPB SCH ×2 (11:58→23:21)
[2021-02-01] MEDS: VALPROATE SODIUM 750 MG in SODIUM CHLORIDE 0.9% 50 ML IVPB SCH ×2 (11:58→17:11)
--- NOTE | 2021-02-01 12:38 | P.PN ---
Subjective Progress Note Date: 02/01/21 This is a 60-year-old male patient who presented to us with cardiac arrest. The patient arrived to the emergency department yesterday afternoon with cardiopulmonary arrest. And is a morbidly obese male patient, diabetic along with history of hypertension and atrial fibrillation along with history of al coholism. Patient was having difficulties in breathing. EMS arrived to the scene and they found the patient quite short of breath, cold and clammy and was having significant respiratory distress. EKG was done and initial EKG showed some signs of ST segment elevation involving the inferior leads including 23 and aVF. The patient was also nauseated and had an episode of emesis and subsequently became acutely unresponsive and pulseless. CPR was initiated. The patient was intubated on scene. Initial cardiac rhythm was ventricular fibrillation. He received defibrillation in the field and he became asystolic. He received epinephrine and resuscitation was continued. He was brought in to [facility] emergency department and he was suffering cardiac arrest and CPR was in progress. Resuscitation was continued in the emergency department. CPR was continued. IV access was established. Airway was secured by EMS via intubation and the patient has a 7.5 orotracheal tube. Patient remained pulseless. He was given further doses of epinephrine, bicarbonate and calcium gluconate. There was return of spontaneous circulation subsequently. The exact downtime was estimated to be somewhat 20 minutes. The patient underwent immediate cardiac catheterization the cardiac catheterization contrary to our expectation axle turner to be within normal limits. Following that, the patient was brought into the intensive care unit. He was coming slightly restless during the cath,. The patient was started on propofol which is still running at 40 mg/kg/m. Nevertheless, overnight, the patient started posturing and the patient started having jerky body movements which were quite rapid beta typical of myoclonic jerks. At that point, I started the patient on Keppra and earlier this morning he was started also on Dilantin given 1 g loading. His cardiac rhythm is sinus. He is still hypotensive and he is on Prevacid which is running at 0.08 mcg/kg per minute of norepinephrine infusion. He has a Oquendo catheter in place. Urine output is in order of 40 mL an hour. Normal saline is running at the rate of 100 mL an hour. He is on a mechanical ventilator. His assist-control mode at the rate of 28 with a tidal volume of 500 and FiO2 of 50% with a PEEP of 5. The blood gases from this morning is showing pH of 7.37 with a pCO2 of 44 and pO2 of 104. Note that the chest x-ray showing bilateral pulmonary infiltrates. CT angios done that was done yesterday showed extensive bilateral lower lobe pulmonary infiltrates and consolidations consistent with pneumonia likely of an aspiration type. COVID-19 testing was sent and the results are still pending. White cell count from today is elevated at 13.9. It was 17.3 yesterday. The electrolytes are normal. Creatinine is at 1.1. Alcohol level is negative. Urine drug screen has not been done. CAT scan of the brain done yesterday showed no acute abnormalities. 02/01/2021, the patient remains intubated on mechanical ventilator. He is post cardiac pulmonary arrest probably due to an extensive pneumonia. Cardiac workup came back essentially negative. Cardiac catheterization was normal and echocardiogram also showed no acute abnormalities. Current rhythm is sinus and the patient remains on pressors for now and norepinephrine infusion is running at 0.08 mitral respiratory per minute and the patient remains in a normal saline at the rate of 100 mL an hour. The activation from yesterday was underwent seizure activity. The patient was started initially on propofol. Later on Keppra was added. Due to ongoing seizure activity, the patient was also given a combination of Dilantin and Depakote. As of yesterday evening, no further seizure activity has been noted. Note that the EEG was showing for suppression consistent with seizure activity. Patient is completely unresponsive at this point in time. He is on a mechanical ventilator assist control mode and currently he is on a rate of 20 with a tidal volume of 500 and FiO2 of 50% with a PEEP of 5. Blood gases show a pH of 7.36 with a pCO2 of 47 and pO2 of 66 and the chest x-rays consistent with bilateral pneumonia. He is covered empirically with a combination of antibiotics including Zosyn and Zithromax. Sputum Gram stain and culture was sent. Blood culture was also sent. He is on pressors at a lower dose as mentioned. He will be started on enteral feeding for nutritional support. White cell count is up to 22.3. He remains sedated propofol and Profore is running at 50 mcg/kg per minute. Discussed the case with neurology. Depakote will be continued at a dose of 750 mg every 6 hours. Dilantin will be stopped for now. We'll continue Keppra and propofol. Objective - Vital Signs Vital signs: Vital Signs Temp 98.3 F 02/01/21 04:00 Pulse 84 02/01/21 10:55 Resp 27 H 02/01/21 08:00 BP 102/61 02/01/21 06:00 Pulse Ox 92 L 02/01/21 08:00 Intake & Output 01/31/21 02/01/21 02/01/21 18:59 06:59 18:59 Intake Total 7343.721 7694.527 234.172 Output Total 460 860 60 Balance 766.667 550.527 174.172 Weight 132 kg Intake: IV 700 1200 200 Sodium Chloride 0.9% 1, 700 1200 200 000 ml @ 100 mls/hr IV . Q10H [facility] Rx#:[id number] Intake, IV Titration 526.667 210.527 34.172 Amount Heparin Sod,Pork in 0.45% 72.667 162.501 14.832 NaCl 25,000 unit In 0.45 % NaCl 1 250ml.bag @ 7. 704 UNITS/KG/HR 10 mls/hr IV .Q24H [facility] Rx#: [id number] Norepinephrine 4 mg In 254 Sodium Chloride 0.9% 250 ml @ 0.05 MCG/KG/MIN 25. 26 mls/hr IV .Q10H4M [facility] Rx#:[id number] Sodium Chloride 0.9% 1, 100 000 ml @ 100 mls/hr IV . Q10H [facility] Rx#:[id number] propofoL 1,000 mg In 100 48.026 19.34 Empty Bag 1 bag @ Titrate IV .Q0M [facility] Rx#: [id number] Output: Urine 460 860 60 Other: Voiding Method Indwelling Catheter Indwelling Catheter Indwelling Catheter ABP, PAP, CO, CI - Last Documented Arterial Blood Pressure 110/49 - Exam Gen. appearance, patient is currently on propofol. No overt seizure activity was noted this morning.. He is completely unresponsive. He is intubated on a mechanical ventilator. Orotracheal and orogastric tube are both in place. He is morbidly obese. Head exam was generally normal. There was no scleral icterus or corneal arcus. Mucous membranes were moist. Neck was supple and without jugular venous distension, thyromegaly, or carotid bruits. Carotids were easily palpable bilaterally. There was no adenopathy. Orogastric and orotracheal tube are both in place and the patient has a #7.5 orotracheal tube. Lungs sounds are diminished and the patient has scattered rhonchi heard throughout the lung his bilaterally and crackles are also appreciated the lung bases Heart sounds are regular, positive S1-S2 and there is no significant murmurs appreciated. Abdominal exam revealed normal bowel sounds. The abdomen was soft, non-tender, and without masses, organomegaly, or appreciable enlargement of the abdominal aorta. Extremities revealed diminished pulses bilaterally. No cyanosis or clubbing. Neurologically, the patient is completely unresponsive on propofol. no myoclonic jerks this morning. Pupils are round 3 mm in size, sluggishly reactive to light. No nystagmus. Positive dose eyes. Absent corneal reflex. Absent gag reflex. Babinski could not be elicited. Reflexes are quite diminished bilaterally. Does not respond to any painful stimulation. Motor function cannot be assessed. Sensory functions cannot be assessed. No neck stiffness. - Labs CBC & Chem 7: 02/01/21 02:00 02/01/21 02:00 Labs: Abnormal Lab Results - Last 24 Hours (Table) 02/01/21 02/01/21 02/01/21 Range/Units 02:00 02:00 02:25 WBC 22.3 H (3.8-10.6) k/uL RBC 3.88 L (4.30-5.90) m/uL MCV 107.5 H (80.0-100.0) fL Neutrophils # 20.0 H (1.3-7.7) k/uL Macrocytosis Marked A ABG pCO2 (35-45) mmHg ABG pO2 (83-108) mmHg ABG HCO3 (21-25) mmol/L ABG Total CO2 (19-24) mmol/L ABG O2 Saturation (94-97) % BUN 27 H (9-20) mg/dL Glucose 224 H (74-99) mg/dL POC Glucose (mg/dL) 200 H (75-99) mg/dL AST 60 H (17-59) U/L ALT 67 H (4-49) U/L Total Protein 5.8 L (6.3-8.2) g/dL Albumin 2.8 L (3.5-5.0) g/dL 02/01/21 02/01/21 02/01/21 Range/Units 06:48 06:56 11:49 WBC (3.8-10.6) k/uL RBC (4.30-5.90) m/uL MCV (80.0-100.0) fL Neutrophils # (1.3-7.7) k/uL Macrocytosis ABG pCO2 47 H (35-45) mmHg ABG pO2 66 L (83-108) mmHg ABG HCO3 27 H (21-25) mmol/L ABG Total CO2 28 H (19-24) mmol/L ABG O2 Saturation 93.0 L (94-97) % BUN (9-20) mg/dL Glucose (74-99) mg/dL POC Glucose (mg/dL) 265 H 201 H (75-99) mg/dL AST (17-59) U/L ALT (4-49) U/L Total Protein (6.3-8.2) g/dL Albumin (3.5-5.0) g/dL Microbiology - Last 24 Hours (Table) 01/31/21 11:30 Gram Stain - Preliminary Sputum Sputum Culture - Preliminary Assessment and Plan Plan: 1 acute V. fib cardiac arrest, with essentially negative cardiac workup. The patient has a normal coronary on cardiac catheterization and the patient has normal effort ejection fraction without any valvular abnormalities. He does have previous history of proximal atrial fibrillation and for that reason the patient was started on IV heparin per cardiology. As suspected, this could've been a respiratory arrest with subsequent cardiac arrest. Review of the Court sheets reviewed and the patient was quite hypoxic at the time of EMS arriving to the scene. His pulse ox was in the order of 49%. The patient also seemed to have had a prolonged downtime with hypoxemia and subsequent cardiac arrest. 2 anoxic encephalopathy due to prolonged downtime following cardiac arrest/respiratory arrest/acute hypoxic respiratory failure 3 myoclonic jerks a candidate to anoxic encephalopathy/cardiac arrest, currently on a combination of propofol infusion, valproic acid and Keppra. 4 acute hypoxic respiratory failure currently intubated on mechanical ventilator secondary to above 5 acute bilateral pneumonia, consider aspiration. COVID-19 testing is still pending 6 acute lactic acidosis secondary to above 7 acute leukocytosis secondary to above 8 acute shock, post cardiac arrest. Consider cardiogenic shock. Consider septic shock. Currently on norepinephrine infusion. 9 diabetes mellitus 10 history of atrial fibrillation maintained on long-term antibiotic ventilation with Eliquis. Current rhythm is sinus. 11 hypertension 12 hyperlipidemia 13 obesity Plan This patient's is currently intubated on mechanical ventilator. No ventilator changes will be done for today. Keep the same setting for now. Neurologically the patient is significantly impaired. He is currently on propof ol please also on a combination of Keppra and Depakote.. clinically, the patient is not seizing. For that reason, had a discussion with neurology and would like to stop the propofol and the repeat an EEG. We'll keep the Wound valproic acid for now. Hemodynamically, the patient is stableand the patient will be also weaned off norepinephrine. Echocardiogram showed no significant abnormalities Agree to IV heparin We'll start the patient IV Zosyn on today's sputum Gram stain and culture and bl ood culture We'll put the patient on a sliding scale insulin coverage We'll obtain a urine drug screen Awaiting COVID-19 testing by PCR Cardiology consultation Neurology consultation Initiate enteral feeding for nutritional support Condition is critical. Prognosis poor baseline above-mentioned comorbidities. Critically care evaluation that was done and more than 30 minutes. Time with Patient: Greater than 30
--- NOTE | 2021-02-01 13:16 | P.PN ---
Subjective This is a pleasant 60-year-old male past medical history significant for paroxysmal atrial fibrillation (on eliquis), hypertension, dyslipidemia, aortic regurgitation, type 2 diabetes, tobacco use. He follows in the office with Dr. Knox. We have been asked to see in consultation for cardiopulmonary arrest. Patient is seen and examined in the intensive care unit. Unable to get information from patient at this time, HPI obtained from chart review. Per emergency department note, 01/30 patient originally called EMS due to shortness of breath. EMS stated that patient was found clammy and nausea with episode of emesis. Patient then became unresponsive, pulseless. CPR was immediately started, intubated by EMS. Initial rhythm was V fib, he did recieve one defribtillation in the field, he became asystole, 2 doses of epinephrine was given and patient was transported to emergency department and active cardiac arrest with CPR was in progress. One round of CPR was performed, 1 of epinephrine, 1 amp of bicarb, 1 amp of calcium. ROSC was obtained. Post ROSC EKG was concerning for an acute inferior ST segment elevation myocardial infarction. STEMI was called. Patient underwent cardiac catheterization with Dr. King on 01/30 which revealed normal coronary arteries and normal LVEDP. Overnight, patient started having jerky body movements which apparently appeared to be typical myoclonic jerks. Patient was started the patient on IV Keppra and also given Dilantin 1g. He is on a mechanical ventilator. Vent settings are assist-control mode at the rate of 28 with a tidal volume of 500 and FiO2 of 50% with a PEEP of 5. Patient is currently on IV propofol, IV norepinephrine, IV keppra. He currently maintaining sinus mechanism. CTA Chest was negative for pulmonary embolism, did reveal moderate multifocal patchy airspace opacities throughout the bilateral lungs, ascending thoracic aorta 4.5cm. Brain CT revealed no acute intracranial abnormality. Cerebral atrophy. Chest x-ray 01/31 revealed patient is rotated, bilateral patchy increased d ensities within the lung, persistent blunting of the left costophrenic angle. Echocardiogram revealed EF 50-55%, LA is moderately dilated, mild regurgitation, mild tricuspid regurgitation, aortic root and ascending aorta dilated measuring up to 4.5cm. 02/01/2021: Patient seen and examined at bedside. He is intubated on mechanical ventilator. AC rate of 28, tidal volume of 500, FiO2 50%, PEEP 5. Patient is currently maintained on IV heparin, IV Keppra, IV azithromycin and IV Zosyn, propofol 50 mcg/kg/min. Chest xray consistent with bilateral pneumonia, ARDS. Laboratory data reviewed, COVID 19 PCR is still pending, WBC 22, hemoglobin 13.2, platelets 264, sodium 138, potassium 3.6, BUN 27, serum creatinine 0.8, magnesium 2.3. Blood pressure 110/47, heart rate 79, patient is maintaining sinus mechanism on telemetry. PHYSICAL EXAMINATION CONSTITUTIONAL: Intubated Sedated HEENT: Head is normocephalic. Pupils are equal, round. Sclerae anicteric. Mucous membranes of the mouth are moist. No JVD. No carotid bruit. CHEST EXAMINATION: Lungs are diminished bilaterally, with rhonchi and bilateral crackles in bases. HEART EXAMINATION: Regular rate and rhythm. S1, S2 heard. No murmurs, gallops or rub. ABDOMEN: Soft, nontender. Positive bowel sounds. EXTREMITIES: 2+ peripheral pulses, no lower extremity edema SKIN: Right femoral cath site clean dry no hematoma present NEUROLOGIC EXAMINATION: Intubated Sedated ASSESSMENT Ventricular fibrillation arrest, s/p cardiac catheterization with no evidence of coronary artery disease Acute hypoxic respiratory failure requiring intubation and mechanical ventillation Bilateral pneumonia Lactic acidosis Leukocytosis History of paroxysmal atrial fibrillation on Eliquis at home History of hypertension Dyslipidemia Type 2 Diabetes PLAN Echocardiogram revealed ejection fraction of 50-55%. Patient is status post cardiac catheterization that revealed normal coronary arteries Recommend continuing IV heparin drip for thromboembolism protection COVID-19 PCR pending Pulmonary following Neurology following From a cardiology perspective, no further cardiac workup at this time. We will follow the patient as needed. Please reach out with further questions or concerns. Thank you kindly for this consultation. Nurse Practitioner note has been reviewed, I agree with a documented findings and plan of care. Patient was seen and examined. Objective - Vital Signs Vital signs: Vital Signs Temp 98.3 F 02/01/21 04:00 Pulse 90 02/01/21 12:30 Resp 32 H 02/01/21 12:30 BP 102/61 02/01/21 06:00 Pulse Ox 93 L 02/01/21 12:30 Intake & Output 01/31/21 02/01/21 02/01/21 18:59 06:59 18:59 Intake Total 7190.981 1644.527 488.172 Output Total 460 860 60 Balance 766.667 550.527 428.172 Weight 132 kg Intake: IV 700 1200 200 Sodium Chloride 0.9% 1, 700 1200 200 000 ml @ 100 mls/hr IV . Q10H [facility] Rx#:[id number] Intake, IV Titration 526.667 210.527 288.172 Amount Heparin Sod,Pork in 0.45% 72.667 162.501 14.832 NaCl 25,000 unit In 0.45 % NaCl 1 250ml.bag @ 7. 704 UNITS/KG/HR 10 mls/hr IV .Q24H [facility] Rx#: [id number] Norepinephrine 4 mg In 254 254.000 Sodium Chloride 0.9% 250 ml @ 0.05 MCG/KG/MIN 25. 26 mls/hr IV .Q10H4M [facility] Rx#:[id number] Sodium Chloride 0.9% 1, 100 000 ml @ 100 mls/hr IV . Q10H [facility] Rx#:[id number] propofoL 1,000 mg In 100 48.026 19.34 Empty Bag 1 bag @ Titrate IV .Q0M [facility] Rx#: [id number] Output: Urine 460 860 60 Other: Voiding Method Indwelling Catheter Indwelling Catheter Indwelling Catheter ABP, PAP, CO, CI - Last Documented Arterial Blood Pressure 137/53 - Labs CBC & Chem 7: 02/01/21 02:00 02/01/21 02:00 Labs: Abnormal Lab Results - Last 24 Hours (Table) 02/01/21 02/01/21 02/01/21 Range/Units 02:00 02:00 02:25 WBC 22.3 H (3.8-10.6) k/uL RBC 3.88 L (4.30-5.90) m/uL MCV 107.5 H (80.0-100.0) fL Neutrophils # 20.0 H (1.3-7.7) k/uL Macrocytosis Marked A ABG pCO2 (35-45) mmHg ABG pO2 (83-108) mmHg ABG HCO3 (21-25) mmol/L ABG Total CO2 (19-24) mmol/L ABG O2 Saturation (94-97) % BUN 27 H (9-20) mg/dL Glucose 224 H (74-99) mg/dL POC Glucose (mg/dL) 200 H (75-99) mg/dL AST 60 H (17-59) U/L ALT 67 H (4-49) U/L Total Protein 5.8 L (6.3-8.2) g/dL Albumin 2.8 L (3.5-5.0) g/dL 02/01/21 02/01/21 02/01/21 Range/Units 06:48 06:56 11:49 WBC (3.8-10.6) k/uL RBC (4.30-5.90) m/uL MCV (80.0-100.0) fL Neutrophils # (1.3-7.7) k/uL Macrocytosis ABG pCO2 47 H (35-45) mmHg ABG pO2 66 L (83-108) mmHg ABG HCO3 27 H (21-25) mmol/L ABG Total CO2 28 H (19-24) mmol/L ABG O2 Saturation 93.0 L (94-97) % BUN (9-20) mg/dL Glucose (74-99) mg/dL POC Glucose (mg/dL) 265 H 201 H (75-99) mg/dL AST (17-59) U/L ALT (4-49) U/L Total Protein (6.3-8.2) g/dL Albumin (3.5-5.0) g/dL Microbiology - Last 24 Hours (Table) 01/31/21 11:30 Gram Stain - Preliminary Sputum Sputum Culture - Preliminary
[2021-02-01 16:54] LABS: Glucose,Whole Blood 190 mg/dL (75-99)
[2021-02-01] MEDS: HEPARIN SOD,PORK IN 0.45% NACL 25,000 UNIT in 0.45% NACL 1 250ML.BAG IV SCH (17:11)
--- NOTE | 2021-02-01 18:13 | P.PN ---
Subjective This is a pleasant 60 years old male with past medical history of hypertension, hyperlipidemia, diabetes mellitus, atrial fibrillation, on Eliquis, osteoarthritis Patient presents with cardiac arrest, he is developed ventricular fibrillation and got shocked by EMS staff. Also he was intubated on the presentation. Per documents patient was called for shortness of breath but he collapsed in front of the EMS staff. Patient currently intubated and cannot provide information. He was undergoing EEG with video monitoring and noted to have frequent myoclonic jerks of the upper part of the body. Neurology service or the informed and came to see the patient who recommended an extra dose of Dilantin while monitoring level. Please refer to neurology for more details. As per neurologist this could be evidence of anoxic brain injury On presentation he was tachycardic, hypotensive and tachypneic. Currently blood pressure is 105/62, his FiO2 of 50% and oxygen saturation of 95%. Labs showing mild leukocytosis of 17.3 and 13.9 K Lars of CBC is unremarkable. D-dimer is slightly elevated at 1.6. Last pH is normal at 7.3, normal pCO2 of 44 and normal pO2 of 104. BMP is unremarkable with normal creatinine at 1.1. Glucose is slightly elevated at 201. Liver enzymes slightly elevated with AST 151 and ALT 87. Bilirubin within the reference range of 1.2. Troponin is normal at 0.2 CT of the brain: Cerebral atrophy. No acute intracranial abnormality CTA of the chest: No pulmonary embolism, multifocal patchy airspace opacity throughout the bilateral lungs. Ascending thoracic aortic ectasia 4.5 cm. Multiple nondisplaced left rib fractures deformity status post CPR In the emergency room he was started on Levophed and heparin drip with cardiology, pulmonary/critical care and neurology team were consulted 02/01/2021 Patient remains in the ICU intubated and sedated ED which is been followed closely by proper/critical care team. Pulmonary team decided not to change ventilation setting today while trying to stop the propofol to see if there is any further seizures with EEG. Patient is kept also on Keppra and Dilantin His tachypneic with a breathing rate 28-32. His with some leukocytosis but he is also on Zithromax and Zosyn Echocardiogram showed ejection fraction of 50-55%, heparin drip was stopped and started on Lovenox prophylactic dose area Continue to also normal standard 100 mL per hour Covid test came back negative Objective - Vital Signs Vital signs: Vital Signs Temp 98.3 F 02/01/21 04:00 Pulse 84 02/01/21 10:55 Resp 27 H 02/01/21 08:00 BP 102/61 02/01/21 06:00 Pulse Ox 92 L 02/01/21 08:00 Intake & Output 01/31/21 02/01/21 02/01/21 18:59 06:59 18:59 Intake Total 4151.238 3817.527 234.172 Output Total 460 860 60 Balance 766.667 550.527 174.172 Weight 132 kg Intake: IV 700 1200 200 Sodium Chloride 0.9% 1, 700 1200 200 000 ml @ 100 mls/hr IV . Q10H [facility] Rx#:[id number] Intake, IV Titration 526.667 210.527 34.172 Amount Heparin Sod,Pork in 0.45% 72.667 162.501 14.832 NaCl 25,000 unit In 0.45 % NaCl 1 250ml.bag @ 7. 704 UNITS/KG/HR 10 mls/hr IV .Q24H [facility] Rx#: [id number] Norepinephrine 4 mg In 254 Sodium Chloride 0.9% 250 ml @ 0.05 MCG/KG/MIN 25. 26 mls/hr IV .Q10H4M [facility] Rx#:[id number] Sodium Chloride 0.9% 1, 100 000 ml @ 100 mls/hr IV . Q10H [facility] Rx#:[id number] propofoL 1,000 mg In 100 48.026 19.34 Empty Bag 1 bag @ Titrate IV .Q0M [facility] Rx#: [id number] Output: Urine 460 860 60 Other: Voiding Method Indwelling Catheter Indwelling Catheter Indwelling Catheter ABP, PAP, CO, CI - Last Documented Arterial Blood Pressure 110/49 - Exam -GENERAL: The patient is intubated and sedated HEENT: Pupils are round and equally reacting to light. EOMI. No scleral icterus. No conjunctival pallor. Normocephalic, atraumatic. No pharyngeal erythema. No thyromegaly. CARDIOVASCULAR: S1 and S2 present. No murmurs, rubs, or gallops. PULMONARY: Chest is clear to auscultation, no wheezing or crackles. ABDOMEN: Soft, nontender, nondistended, normoactive bowel sounds. No palpable organomegaly. MUSCULOSKELETAL: No joint swelling or deformity. EXTREMITIES: No cyanosis, clubbing, or pedal edema. NEUROLOGICAL: Gross neurological examination did not reveal any focal deficits. SKIN: No rashes. No petechiae - Labs CBC & Chem 7: 02/01/21 02:00 02/01/21 02:00 Labs: Abnormal Lab Results - Last 24 Hours (Table) 01/31/21 02/01/21 02/01/21 Range/Units 09:08 02:00 02:00 WBC 22.3 H (3.8-10.6) k/uL RBC 3.88 L (4.30-5.90) m/uL MCV 107.5 H (80.0-100.0) fL Neutrophils # 20.0 H (1.3-7.7) k/uL Macrocytosis Marked A ABG pCO2 (35-45) mmHg ABG pO2 (83-108) mmHg ABG HCO3 (21-25) mmol/L ABG Total CO2 (19-24) mmol/L ABG O2 Saturation (94-97) % BUN 27 H (9-20) mg/dL Glucose 224 H (74-99) mg/dL POC Glucose (mg/dL) (75-99) mg/dL AST 60 H (17-59) U/L ALT 67 H (4-49) U/L Total Protein 5.8 L (6.3-8.2) g/dL Albumin 2.8 L (3.5-5.0) g/dL Ur Specific [place] >1.050 H (1.001-1.035) Urine Protein 1+ H (Negative) Urine Glucose (UA) 1+ H (Negative) Urine Ketones 1+ H (Negative) Urine Blood Moderate H (Negative) Urine Bilirubin 1+ H (Negative) Ur Leukocyte Esterase Trace H (Negative) Urine RBC 17 H (0-5) /hpf Uric Acid Crystals Few H (None) /hpf Amorphous Sediment Many H (None) /hpf Urine Mucus Rare H (None) /hpf 02/01/21 02/01/21 02/01/21 Range/Units 02:25 06:48 06:56 WBC (3.8-10.6) k/uL RBC (4.30-5.90) m/uL MCV (80.0-100.0) fL Neutrophils # (1.3-7.7) k/uL Macrocytosis ABG pCO2 47 H (35-45) mmHg ABG pO2 66 L (83-108) mmHg ABG HCO3 27 H (21-25) mmol/L ABG Total CO2 28 H (19-24) mmol/L ABG O2 Saturation 93.0 L (94-97) % BUN (9-20) mg/dL Glucose (74-99) mg/dL POC Glucose (mg/dL) 200 H 265 H (75-99) mg/dL AST (17-59) U/L ALT (4-49) U/L Total Protein (6.3-8.2) g/dL Albumin (3.5-5.0) g/dL Ur Specific [place] (1.001-1.035) Urine Protein (Negative) Urine Glucose (UA) (Negative) Urine Ketones (Negative) Urine Blood (Negative) Urine Bilirubin (Negative) Ur Leukocyte Esterase (Negative) Urine RBC (0-5) /hpf Uric Acid Crystals (None) /hpf Amorphous Sediment (None) /hpf Urine Mucus (None) /hpf 02/01/21 Range/Units 11:49 WBC (3.8-10.6) k/uL RBC (4.30-5.90) m/uL MCV (80.0-100.0) fL Neutrophils # (1.3-7.7) k/uL Macrocytosis ABG pCO2 (35-45) mmHg ABG pO2 (83-108) mmHg ABG HCO3 (21-25) mmol/L ABG Total CO2 (19-24) mmol/L ABG O2 Saturation (94-97) % BUN (9-20) mg/dL Glucose (74-99) mg/dL POC Glucose (mg/dL) 201 H (75-99) mg/dL AST (17-59) U/L ALT (4-49) U/L Total Protein (6.3-8.2) g/dL Albumin (3.5-5.0) g/dL Ur Specific [place] (1.001-1.035) Urine Protein (Negative) Urine Glucose (UA) (Negative) Urine Ketones (Negative) Urine Blood (Negative) Urine Bilirubin (Negative) Ur Leukocyte Esterase (Negative) Urine RBC (0-5) /hpf Uric Acid Crystals (None) /hpf Amorphous Sediment (None) /hpf Urine Mucus (None) /hpf Microbiology - Last 24 Hours (Table) 01/31/21 11:30 Gram Stain - Preliminary Sputum Sputum Culture - Preliminary Assessment and Plan Assessment: Status post cardiac arrest, status post V. fib and electric shock. Rule out acute coronary syndrome Hypoxic respiratory failure status post intubation bilateral multifocal patchy airspace disease Left multiple rib fractures secondary to CPR possible anoxic brain injury Possible septic shock, unknown source of infection Possible seizures Myoclonic jerks, witnessed during video EEG, thought secondary to severe anoxic brain injury History of Hypertension Hyperlipidemia Diabetes mellitus Chronic atrial fibrillation on Eliquis History of osteoarthritis Plan: This is a pleasant 60 years old male who presents with cardiac arrest and V. fib. Currently he is intubated and in the ICU Continue with Levophed Discontinue heparin drip and start Lovenox prophylactic dose Patient currently on Keppra and Dilantin with neurology service on the case patient is on Zosyn. Follow-up blood culture, send urine Several consults on the case including pulmonary/critical care, cardiology and n eurology Labs and medication were reviewed.. Continue same treatment. Continue with symptomatic treatment. Resume home medication. Monitor lytes and vitals. DVT and GI prophylaxis. Further recommendations depends on the clinical course of the patient DVT prophylaxis: heparin GI Prophylaxis: Pepcid Prognosis is guarded
--- NOTE | 2021-02-01 18:25 | EEG ---
ELECTROENCEPHALOGRAM REPORT DATE OF SERVICE: 02/01/2021 PREAMBLE: This is a 60-year-old male with cardiac arrest. This is a follow-up EEG. EEG FINDING: This is a 21-channel portable EEG recording in a patient utilizing 10/20 international system with referential and bipolar montage. The recording starts and continues with presence of burst suppressed pattern consisting of 5-10 seconds of severely suppressed, isoelectric EEG followed by bursts of high amplitude diffuse delta slowing lasting for 2-4 seconds. This continues to persist throughout the recording. No epileptiform activity was seen in the entire study. No clinical seizures were documented by the field support technician. IMPRESSION: This is a very severely abnormal EEG due to presence of burst suppressed pattern. The suppressed pattern appears isoelectric, whereas the burst face consist of high amplitude generalized delta slowing. This pattern is typically seen with severe anoxic encephalopathy. No epileptiform activity was seen during this study. When compared to the previous study from 01/31/2021, the epileptiform activity has resolved. Clinical correlation also recommended. CASANDRA / KORIN: [id number] / AMBAR
[2021-02-01] MEDS: AZITHROMYCIN 500 MG in SODIUM CHLORIDE 0.9% 250 ML IVPB SCH (21:12)
[2021-02-01] MEDS: ACETAMINOPHEN IV (For NPO) 1,000 MG in EMPTY BAG 1 BAG IVPB PRN (21:12)
--- NOTE | 2021-02-01 23:40 | P.PN ---
Subjective Progress Note Date: 02/01/21 Patient was seen for a follow-up. Patient is not on any sedation. Propofol has been discontinued. Patient is only on 3 antiepileptic medications as mentioned. No further seizure activity noticed. No myoclonic jerks. Patient continues to be comatose. Objective - Vital Signs Vital signs: Vital Signs Temp 98.3 F 02/01/21 04:00 Pulse 93 02/01/21 14:00 Resp 32 H 02/01/21 14:00 BP 102/61 02/01/21 06:00 Pulse Ox 92 L 02/01/21 14:00 Intake & Output 01/31/21 02/01/21 02/01/21 18:59 06:59 18:59 Intake Total 7801.611 4443.527 1138.172 Output Total 460 860 250 Balance 766.667 550.527 888.172 Weight 132 kg 132 kg Intake: IV 700 1200 600 Sodium Chloride 0.9% 1, 700 1200 600 000 ml @ 100 mls/hr IV . Q10H [facility] Rx#:[id number] Intake, IV Titration 526.667 210.527 538.172 Amount Heparin Sod,Pork in 0.45% 72.667 162.501 14.832 NaCl 25,000 unit In 0.45 % NaCl 1 250ml.bag @ 7. 704 UNITS/KG/HR 10 mls/hr IV .Q24H [facility] Rx#: [id number] Norepinephrine 4 mg In 254 254.000 Sodium Chloride 0.9% 250 ml @ 0.05 MCG/KG/MIN 25. 26 mls/hr IV .Q10H4M [facility] Rx#:[id number] Phenytoin Sodium Inj 750 100 mg In Sodium Chloride 0.9 % 100 ml @ 200 mls/hr IVPB ONCE STA Rx#: [id number] Potassium Chloride 20 meq 100 In Water For Injection 1 100ml.bag @ 50 mls/hr IVPB Q2H [facility] Rx#: [id number] Sodium Chloride 0.9% 1, 100 000 ml @ 100 mls/hr IV . Q10H [facility] Rx#:[id number] Valproate Sodium 750 mg 50 In Sodium Chloride 0.9% 50 ml @ 50 mls/hr IVPB Q6HR [facility] Rx#:[id number] propofoL 1,000 mg In 100 48.026 19.34 Empty Bag 1 bag @ Titrate IV .Q0M [facility] Rx#: [id number] Output: Urine 460 860 250 Other: Voiding Method Indwelling Catheter Indwelling Catheter Indwelling Catheter ABP, PAP, CO, CI - Last Documented Arterial Blood Pressure 140/66 - Exam Patient is comatose. Patient does not respond to calling his name. Patient does not respond to painful stimuli. Patient has a weak cough and gag. He is minimally breathing over the ventilator. Pupils are round and reacting. Oculocephalics are absent, corneals absent. No obvious seizure activity. - Labs CBC & Chem 7: 02/01/21 02:00 02/01/21 02:00 Labs: Abnormal Lab Results - Last 24 Hours (Table) 02/01/21 02/01/21 02/01/21 Range/Units 02:00 02:00 02:25 WBC 22.3 H (3.8-10.6) k/uL RBC 3.88 L (4.30-5.90) m/uL MCV 107.5 H (80.0-100.0) fL Neutrophils # 20.0 H (1.3-7.7) k/uL Macrocytosis Marked A ABG pCO2 (35-45) mmHg ABG pO2 (83-108) mmHg ABG HCO3 (21-25) mmol/L ABG Total CO2 (19-24) mmol/L ABG O2 Saturation (94-97) % BUN 27 H (9-20) mg/dL Glucose 224 H (74-99) mg/dL POC Glucose (mg/dL) 200 H (75-99) mg/dL AST 60 H (17-59) U/L ALT 67 H (4-49) U/L Total Protein 5.8 L (6.3-8.2) g/dL Albumin 2.8 L (3.5-5.0) g/dL 02/01/21 02/01/21 02/01/21 Range/Units 06:48 06:56 11:49 WBC (3.8-10.6) k/uL RBC (4.30-5.90) m/uL MCV (80.0-100.0) fL Neutrophils # (1.3-7.7) k/uL Macrocytosis ABG pCO2 47 H (35-45) mmHg ABG pO2 66 L (83-108) mmHg ABG HCO3 27 H (21-25) mmol/L ABG Total CO2 28 H (19-24) mmol/L ABG O2 Saturation 93.0 L (94-97) % BUN (9-20) mg/dL Glucose (74-99) mg/dL POC Glucose (mg/dL) 265 H 201 H (75-99) mg/dL AST (17-59) U/L ALT (4-49) U/L Total Protein (6.3-8.2) g/dL Albumin (3.5-5.0) g/dL Microbiology - Last 24 Hours (Table) 01/31/21 11:30 Gram Stain - Preliminary Sputum Sputum Culture - Preliminary Assessment and Plan Assessment: * Status post cardiac arrest with prolonged downtime of around 16 minutes. * Myoclonic status epilepticus now resolved. 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 GCS of 3. * Probable community-acquired pneumonia with superimposed aspiration pneumonia. * Normal coronary angiography. * Obesity Plan: * Patient underwent repeat EEG today. It continues to be very severely abnormal due to presence of burst suppressed pattern. The suppressed pattern appears i soelectric, whereas the burst phase consist of high amplitude generalized delta slowing. This pattern is typically seen with severe anoxic encephalopathy, and pertains to overall poor prognosis. No epileptiform activity was seen during this study. When compared to the previous study from 01/31/2021, the epileptiform activity has resolved. * Patient to be continued on Depakote 750 mg 4 times a day. Patient was given 1 loading dose of Dilantin, but now will stop Dilantin. We will also stop K eppra by tomorrow. * Patient's clinical condition appears to be worse today as compared to yesterday. There was some movement of the extremities with painful stimuli noticed yesterday, but was not seen today. * I had a family meeting, and discussed with patient's family about his clinical condition, and overall prognosis. Time with Patient: Greater than 30
[2021-02-02 00:20] LABS: Glucose,Whole Blood 158 mg/dL (75-99)
[2021-02-02] MEDS: VALPROATE SODIUM 750 MG in SODIUM CHLORIDE 0.9% 50 ML IVPB SCH ×4 (00:22→17:51)
[2021-02-02] MEDS: INSULIN ASPART (NovoLOG) 100 UNIT/ML VIAL SQ SCH ×4 (00:22→18:43)
[2021-02-02] MEDS: IPRATROPIUM-ALBUTEROL 3 ML NEB INHALATION SCH ×6 (02:59→23:49)
[2021-02-02 04:36] LABS: ABG Base Excess 2.7 mmol/L; ABG HCO3 28 mmol/L (21-25); ABG Oxygen Saturation 97.7 % (94-97); ABG PCO2 44 mmHg (35-45); ABG PO2 90 mmHg (83-108); ABG TCO2 29 mmol/L (19-24); Allen Test Performed? Yes
[2021-02-02 06:53] LABS: Glucose,Whole Blood 180 mg/dL (75-99)
[2021-02-02] MEDS: CLEVIDIPINE BUTYRATE 25 MG in EMPTY BAG 1 BAG IV SCH ×6 (07:01→23:23)
--- NOTE | 2021-02-02 08:35 | XR ---
EXAMINATION TYPE: XR chest 1V portable DATE OF EXAM: 02/02/2021 COMPARISON: 01/31/2021 02/01/2021 HISTORY: Tube placement TECHNIQUE: Single frontal view of the chest is obtained. FINDINGS: ET and NG tube stable. Diffuse bilateral interstitial infiltrates with more localized cons olidation left lower lobe and small effusion. Left-sided central line noted. No pneumothorax. Hypertr ophic and degenerative change of the spine. IMPRESSION: 1. Diffuse interstitial infiltrate with left lower lobe infiltrate and small effusion stable from piedad or exam. Differential diagnosis would include pneumonia. CHF felt less likely. 2. NG tube is been pulled back to the distal esophagus level recommended advancement of the NG tube
[2021-02-02] MEDS: CHLORHEXIDINE GLUCONATE 15 ML CUP MUCOUS MEM SCH ×2 (08:36→20:56)
[2021-02-02] MEDS: FAMOTIDINE 20 MG/2 ML VIAL IV SCH ×2 (08:36→20:56)
[2021-02-02] MEDS: PIPERACILLIN-TAZOBACTAM 3.375 GM in SODIUM CHLORIDE 0.9% 100 ML IVPB SCH ×2 (08:37→16:01)
[2021-02-02] MEDS: ENOXAPARIN 40 MG/0.4 ML SYRINGE SQ SCH (08:37)
[2021-02-02] MEDS: ACETAMINOPHEN IV (For NPO) 1,000 MG in EMPTY BAG 1 BAG IVPB PRN ×2 (08:44→17:51)
[2021-02-02 10:25] VITALS: BMI 38.2
[2021-02-02 11:32] LABS: Glucose,Whole Blood 222 mg/dL (75-99)
[2021-02-02] MEDS: levETIRAcetam IV 1,000 MG in SALINE 1 100ML.BAG IVPB SCH ×2 (12:24→23:22)
[2021-02-02] MEDS ORDERED: HYDROmorphone 0.5 MG/0.5 ML SYRINGE IVP PRN (13:18)
[2021-02-02 14:28] LABS: African American GFR (CKD) >90 (>60 ml/min/1.73 sqM); Anion Gap 7 mmol/L; Blood Urea Nitrogen 18 mg/dL (9-20); Calcium 9.3 mg/dL (8.4-10.2); Carbon Dioxide 28 mmol/L (22-30); Chloride 112 mmol/L (98-107); Glucose 172 mg/dL (74-99); Non-African American GFR(CKD) >90 (>60 ml/min/1.73 sqM); Potassium 3.6 mmol/L (3.5-5.1); Sodium 147 mmol/L (137-145)
[2021-02-02 15:03] LABS: Basophils # (A) 0.1 k/uL (0-0.2); Basophils % (A) 0 %; Eosinophils % (A) 0 %; HCT 42.8 % (39.0-53.0); HGB 13.9 gm/dL (13.0-17.5); Hypochromasia Slight; Lymphocytes # (A) 0.7 k/uL (1.0-4.8); Lymphocytes % (A) 3 %; MCH 34.6 pg (25.0-35.0); MCHC 32.6 g/dL (31.0-37.0); MCV 106.3 fL (80.0-100.0); Macrocytosis Moderate; Mean Platelet Volume 8.8; Monocytes # (A) 0.8 k/uL (0-1.0); Monocytes % (A) 3 %; Neutrophils # (A) 23.2 k/uL (1.3-7.7); Neutrophils % (A) 93 %; Platelet Count 218 k/uL (150-450); RBC 4.02 m/uL (4.30-5.90); RDW 15.2 % (11.5-15.5); WBC 25.1 k/uL (3.8-10.6)
--- NOTE | 2021-02-02 15:25 | P.PN ---
Subjective Progress Note Date: 02/02/21 Patient was seen for a follow-up. Patient is not on any sedation. Propofol has been discontinued. Patient is only on 2 antiepileptic medications Keppra and Depakote. No seizures noted. No myoclonic jerks. Patient continues to be comatose, intubated. Objective - Vital Signs Vital signs: Vital Signs Temp 100.9 F H 02/02/21 12:00 Pulse 101 H 02/02/21 13:00 Resp 32 H 02/02/21 13:00 BP 142/77 02/02/21 13:00 Pulse Ox 97 02/02/21 13:00 Intake & Output 02/01/21 02/02/21 02/02/21 18:59 06:59 18:59 Intake Total 2939.720 3946 853.433 Output Total 540 1555 550 Balance 1198.172 295 303.433 Weight 132 kg 135.1 kg 135.1 kg Intake: IV 1200 1200 500 Sodium Chloride 0.9% 1, 1200 1200 500 000 ml @ 100 mls/hr IV . Q10H [facility] Rx#:[id number] Intake, IV Titration 538.172 450 253.433 Amount ACETAMINOPHEN IV (For NPO 100 100 ) 1,000 mg In Empty Bag 1 bag @ 400 mls/hr IVPB Q6HR PRN Rx#:[id number] Azithromycin 500 mg In 250 Sodium Chloride 0.9% 250 ml @ 250 mls/hr IVPB HS [facility] Rx#:[id number] Clevidipine Butyrate 25 53.433 mg In Empty Bag 1 bag @ 1 MG/HR 2 mls/hr IV .Q24H [facility] Rx#:[id number] Heparin Sod,Pork in 0.45% 14.832 NaCl 25,000 unit In 0.45 % NaCl 1 250ml.bag @ 7. 704 UNITS/KG/HR 10 mls/hr IV .Q24H [facility] Rx#: [id number] Norepinephrine 4 mg In 254.000 Sodium Chloride 0.9% 250 ml @ 0.05 MCG/KG/MIN 25. 26 mls/hr IV .Q10H4M [facility] Rx#:[id number] Phenytoin Sodium Inj 750 100 mg In Sodium Chloride 0.9 % 100 ml @ 200 mls/hr IVPB ONCE STA Rx#: [id number] Piperacillin-Tazobactam 3 50 100 .375 gm In Sodium Chloride 0.9% 100 ml @ 25 mls/hr IVPB Q8HR [facility] Rx# :[id number] Potassium Chloride 20 meq 100 In Water For Injection 1 100ml.bag @ 50 mls/hr IVPB Q2H [facility] Rx#: [id number] Valproate Sodium 750 mg 50 50 In Sodium Chloride 0.9% 50 ml @ 50 mls/hr IVPB Q6HR [facility] Rx#:[id number] propofoL 1,000 mg In 19.34 Empty Bag 1 bag @ Titrate IV .Q0M [facility] Rx#: [id number] Tube Feeding 140 100 Other 60 Output: Urine 540 1055 550 Emesis 500 Other: Voiding Method Indwelling Catheter Indwelling Catheter Indwelling Catheter ABP, PAP, CO, CI - Last Documented Arterial Blood Pressure 133/95 - Exam Patient is comatose. Patient does partially open his eyes spontaneously, but does not make any eye contact, does not track or register. Patient does not respond to calling his name. Patient does not respond to painful stimuli, with very minimal limb movement, which is very inconsistent. Patient has a weak cough and gag. He is minimally breathing over the ventilator. Pupils are round and reacting. Oculocephalics are absent, corneals present. No obvious seizure activity. Reflexes are absent in the upper limbs, 1 in the lower limbs and patient has bilateral Babinski. Rest of the neurological examination cannot be performed. - Labs CBC & Chem 7: 02/02/21 13:50 02/02/21 13:50 Labs: Abnormal Lab Results - Last 24 Hours (Table) 02/01/21 02/02/21 02/02/21 Range/Units 16:51 00:18 04:33 ABG HCO3 28 H (21-25) mmol/L ABG Total CO2 29 H (19-24) mmol/L ABG O2 Saturation 97.7 H (94-97) % POC Glucose (mg/dL) 190 H 158 H (75-99) mg/dL 02/02/21 02/02/21 Range/Units 06:51 11:20 ABG HCO3 (21-25) mmol/L ABG Total CO2 (19-24) mmol/L ABG O2 Saturation (94-97) % POC Glucose (mg/dL) 180 H 222 H (75-99) mg/dL Microbiology - Last 24 Hours (Table) 01/31/21 11:30 Gram Stain - Final Sputum Sputum Culture - Final Haemophilus influenzae 01/31/21 21:45 Blood Culture - Preliminary Blood No Growth after 24 hours Assessment and Plan Assessment: * Status post cardiac arrest with prolonged downtime of around 16 minutes. * Myoclonic status epilepticus now resolved. 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 GCS of 4. * Probable community-acquired pneumonia with superimposed aspiration pneumonia. * Normal coronary angiography. * Obesity Plan: * Patient is not showing any signs of clinical improvement. Continues to be comatose. * Repeat EEG 02/01/2021 continues to be very severely abnormal due to presence of burst suppressed pattern. The suppressed pattern appears isoelectric, whereas the burst phase consist of high amplitude generalized delta slowing. This pattern is typically seen with severe anoxic encephalopathy, and pertains to overall poor prognosis. No epileptiform activity was seen during this study. When compared to the previous study from 01/31/2021, the epileptiform activity has resolved. * Patient to be continued on Depakote 750 mg 4 times a day. We will stop Keppra. * Repeat computed tomography scan of the head was performed today. It reveals evidence of mild diffuse cerebral edema, with evidence of loss of flores-white junction, and evidence of mild diffuse sulcal effacement, maximal seen involving the bilateral parietal occipital region. No hemorrhage. * I discussed with patient's sister, who was present by the bedside about his clinical condition.
[2021-02-02] MEDS: SODIUM CHLORIDE 0.9% 1,000 ML IV SCH ×2 (15:59→20:56)
--- NOTE | 2021-02-02 16:36 | P.PN ---
Subjective Progress Note Date: 02/02/21 This is a 60-year-old male patient who presented to us with cardiac arrest. The patient arrived to the emergency department yesterday afternoon with cardiopulmonary arrest. And is a morbidly obese male patient, diabetic along with history of hypertension and atrial fibrillation along with history of al coholism. Patient was having difficulties in breathing. EMS arrived to the scene and they found the patient quite short of breath, cold and clammy and was having significant respiratory distress. EKG was done and initial EKG showed some signs of ST segment elevation involving the inferior leads including 23 and aVF. The patient was also nauseated and had an episode of emesis and subsequently became acutely unresponsive and pulseless. CPR was initiated. The patient was intubated on scene. Initial cardiac rhythm was ventricular fibrillation. He received defibrillation in the field and he became asystolic. He received epinephrine and resuscitation was continued. He was brought in to [facility] emergency department and he was suffering cardiac arrest and CPR was in progress. Resuscitation was continued in the emergency department. CPR was continued. IV access was established. Airway was secured by EMS via intubation and the patient has a 7.5 orotracheal tube. Patient remained pulseless. He was given further doses of epinephrine, bicarbonate and calcium gluconate. There was return of spontaneous circulation subsequently. The exact downtime was estimated to be somewhat 20 minutes. The patient underwent immediate cardiac catheterization the cardiac catheterization contrary to our expectation inspector returned materials to be within normal limits. Following that, the patient was brought into the intensive care unit. He was coming slightly restless during the cath,. The patient was started on propofol which is still running at 40 mg/kg/m. Nevertheless, overnight, the patient started posturing and the patient started having jerky body movements which were quite rapid beta typical of myoclonic jerks. At that point, I started the patient on Keppra and earlier this morning he was started also on Dilantin given 1 g loading. His cardiac rhythm is sinus. He is still hypotensive and he is on Prevacid which is running at 0.08 mcg/kg per minute of norepinephrine infusion. He has a Oquendo catheter in place. Urine output is in order of 40 mL an hour. Normal saline is running at the rate of 100 mL an hour. He is on a mechanical ventilator. His assist-control mode at the rate of 28 with a tidal volume of 500 and FiO2 of 50% with a PEEP of 5. The blood gases from this morning is showing pH of 7.37 with a pCO2 of 44 and pO2 of 104. Note that the chest x-ray showing bilateral pulmonary infiltrates. CT angios done that was done yesterday showed extensive bilateral lower lobe pulmonary infiltrates and consolidations consistent with pneumonia likely of an aspiration type. COVID-19 testing was sent and the results are still pending. White cell count from today is elevated at 13.9. It was 17.3 yesterday. The electrolytes are normal. Creatinine is at 1.1. Alcohol level is negative. Urine drug screen has not been done. CAT scan of the brain done yesterday showed no acute abnormalities. 02/01/2021, the patient remains intubated on mechanical ventilator. He is post cardiac pulmonary arrest probably due to an extensive pneumonia. Cardiac workup came back essentially negative. Cardiac catheterization was normal and echocardiogram also showed no acute abnormalities. Current rhythm is sinus and the patient remains on pressors for now and norepinephrine infusion is running at 0.08 mitral respiratory per minute and the patient remains in a normal saline at the rate of 100 mL an hour. The activation from yesterday was underwent seizure activity. The patient was started initially on propofol. Later on Keppra was added. Due to ongoing seizure activity, the patient was also given a combination of Dilantin and Depakote. As of yesterday evening, no further seizure activity has been noted. Note that the EEG was showing for suppression consistent with seizure activity. Patient is completely unresponsive at this point in time. He is on a mechanical ventilator assist control mode and currently he is on a rate of 20 with a tidal volume of 500 and FiO2 of 50% with a PEEP of 5. Blood gases show a pH of 7.36 with a pCO2 of 47 and pO2 of 66 and the chest x-rays consistent with bilateral pneumonia. He is covered empirically with a combination of antibiotics including Zosyn and Zithromax. Sputum Gram stain and culture was sent. Blood culture was also sent. He is on pressors at a lower dose as mentioned. He will be started on enteral feeding for nutritional support. White cell count is up to 22.3. He remains sedated propofol and Profore is running at 50 mcg/kg per minute. Discussed the case with neurology. Depakote will be continued at a dose of 750 mg every 6 hours. Dilantin will be stopped for now. We'll continue Keppra and propofol. 02/02/2021, the patient is being seen in follow-up in intensive care unit. The patient is intubated on a mechanical ventilator. The patient is post cardiac pulmonary arrest as mentioned in the patient's currently being treated for Haemophilus influenza pneumonia and sepsis in time of admission. In terms of his neurologic function is, the patient was taken off the propofol. He is curre ntly on no sedation. Probable was discontinued and repeat EEG was done and showed no evidence of any ongoing seizure activity. Clinically the patient having any seizures. The patient is currently on 2 different antiepileptic medication including Keppra and Depakote. No seizure was noted. No myoclonic jerks. The patient however remains unresponsive. He occasionally moves his left upper extremity to deep painful stimulation. He is also sensing some pain. Initially his lower extremities. Pupils are equal and reactive to light. Very weak corneals. Positive gag. No seizure activity is noted. He remains intubated on a mechanical ventilator. On today's evaluation, the patient is on a assist-control mode at the rate of 28 with a tidal volume of 500 and FiO2 of 50% with a PEEP of 5. The blood gases from today showed a pH of 7.4 with a pCO2 of 44 and pO2 of 90. This was on FiO2 of 50%. Chest x-ray still showing bilateral pneumonia and a sputum culture was positive for Haemophilus influenza and the patient remains on a combination of Zosyn and Zithromax. The patient also is off pressors. In fact his blood pressure was on the rise. Based on that, the patient was placed on a Cleviprex drip for blood pressure control which is currently running at 7 mg an hour. The patient is also running and on and off fever with a T-max of 102.8 and the patient was given IV Tylenol. He is tolerating enteral feeding for nutritional support and the patient is currently on vital high protein at the rate of 20 mL an hour. The patient's COVID-19 testing came back negative. His white cell count is at 25 with a hemoglobin of 15.9. His sodium level is at 147 with a potassium level of 3.6 and a chloride of 112 and the BUN of 18 with a creatinine of 0.6. No other significant events overnight. The right on the case. The patient remains on Lovenox for DVT prophylaxis. Objective - Vital Signs Vital signs: Vital Signs Temp 102.8 F H 02/02/21 16:00 Pulse 104 H 02/02/21 16:00 Resp 32 H 02/02/21 16:00 BP 153/82 02/02/21 16:00 Pulse Ox 95 02/02/21 16:00 Intake & Output 02/01/21 02/02/21 02/02/21 18:59 06:59 18:59 Intake Total 7026.507 4345 1313.133 Output Total 540 1555 1055 Balance 1198.172 295 258.133 Weight 132 kg 135.1 kg 135.1 kg Intake: IV 1200 1200 760 Sodium Chloride 0.9% 1, 1200 1200 760 000 ml @ 20 mls/hr IV . Q24H [facility] Rx#:[id number] Intake, IV Titration 538.172 450 453.133 Amount ACETAMINOPHEN IV (For NPO 100 100 ) 1,000 mg In Empty Bag 1 bag @ 400 mls/hr IVPB Q6HR PRN Rx#:[id number] Azithromycin 500 mg In 250 Sodium Chloride 0.9% 250 ml @ 250 mls/hr IVPB HS [facility] Rx#:[id number] Clevidipine Butyrate 25 103.133 mg In Empty Bag 1 bag @ 1 MG/HR 2 mls/hr IV .Q24H [facility] Rx#:[id number] Heparin Sod,Pork in 0.45% 14.832 NaCl 25,000 unit In 0.45 % NaCl 1 250ml.bag @ 7. 704 UNITS/KG/HR 10 mls/hr IV .Q24H [facility] Rx#: [id number] Norepinephrine 4 mg In 254.000 Sodium Chloride 0.9% 250 ml @ 0.05 MCG/KG/MIN 25. 26 mls/hr IV .Q10H4M [facility] Rx#:[id number] Phenytoin Sodium Inj 750 100 mg In Sodium Chloride 0.9 % 100 ml @ 200 mls/hr IVPB ONCE STA Rx#: [id number] Piperacillin-Tazobactam 3 50 200 .375 gm In Sodium Chloride 0.9% 100 ml @ 25 mls/hr IVPB Q8HR [facility] Rx# :[id number] Potassium Chloride 20 meq 100 In Water For Injection 1 100ml.bag @ 50 mls/hr IVPB Q2H [facility] Rx#: [id number] Valproate Sodium 750 mg 50 50 50 In Sodium Chloride 0.9% 50 ml @ 50 mls/hr IVPB Q6HR [facility] Rx#:[id number] propofoL 1,000 mg In 19.34 Empty Bag 1 bag @ Titrate IV .Q0M [facility] Rx#: [id number] Tube Feeding 140 100 Other 60 Output: Urine 540 1055 1055 Emesis 500 Other: Voiding Method Indwelling Catheter Indwelling Catheter Indwelling Catheter ABP, PAP, CO, CI - Last Documented Arterial Blood Pressure 128/65 - Exam Gen. appearance, patient is currently on no sedation.. No overt seizure activity was noted this morning.. He is unresponsive. He is intubated on a mechanical ventilator. Orotracheal and orogastric tube are both in place. He is morbidly obese. Head exam was generally normal. There was no scleral icterus or corneal arcus. Mucous membranes were moist. Neck was supple and without jugular venous distension, thyromegaly, or carotid bruits. Carotids were easily palpable bilaterally. There was no adenopathy. Orogastric and orotracheal tube are both in place and the patient has a #7.5 orotracheal tube. Lungs sounds are diminished and the patient has scattered rhonchi heard throughout the lung his bilaterally and crackles are also appreciated the lung bases Heart sounds are regular, positive S1-S2 and there is no significant murmurs appreciated. Abdominal exam revealed normal bowel sounds. The abdomen was soft, non-tender, and without masses, organomegaly, or appreciable enlargement of the abdominal aorta. Extremities revealed diminished pulses bilaterally. No cyanosis or clubbing. Neurologically, the patient is completely unresponsive off propofol. no myoclonic jerks this morning. Pupils are round 5 mm in size, sluggishly reactive to light. No nystagmus. Positive corneal, positive pupillary reflex, positive gag reflex.. Babinski could not be elicited. Reflexes are quite diminished bilaterally. Does not respond to any painful stimulation. Motor function cannot be assessed. Sensory functions cannot be assessed. No neck stiffness. Occasionally grimaces to deep painful stimulation - Labs CBC & Chem 7: 02/02/21 13:50 02/02/21 13:50 Labs: Abnormal Lab Results - Last 24 Hours (Table) 02/01/21 02/02/21 02/02/21 Range/Units 16:51 00:18 04:33 WBC (3.8-10.6) k/uL RBC (4.30-5.90) m/uL MCV (80.0-100.0) fL Neutrophils # (1.3-7.7) k/uL Lymphocytes # (1.0-4.8) k/uL ABG HCO3 28 H (21-25) mmol/L ABG Total CO2 29 H (19-24) mmol/L ABG O2 Saturation 97.7 H (94-97) % Sodium (137-145) mmol/L Chloride (98-107) mmol/L Glucose (74-99) mg/dL POC Glucose (mg/dL) 190 H 158 H (75-99) mg/dL 02/02/21 02/02/21 02/02/21 Range/Units 06:51 11:20 13:50 WBC 25.1 H (3.8-10.6) k/uL RBC 4.02 L (4.30-5.90) m/uL MCV 106.3 H (80.0-100.0) fL Neutrophils # 23.2 H (1.3-7.7) k/uL Lymphocytes # 0.7 L (1.0-4.8) k/uL ABG HCO3 (21-25) mmol/L ABG Total CO2 (19-24) mmol/L ABG O2 Saturation (94-97) % Sodium (137-145) mmol/L Chloride (98-107) mmol/L Glucose (74-99) mg/dL POC Glucose (mg/dL) 180 H 222 H (75-99) mg/dL 02/02/21 Range/Units 13:50 WBC (3.8-10.6) k/uL RBC (4.30-5.90) m/uL MCV (80.0-100.0) fL Neutrophils # (1.3-7.7) k/uL Lymphocytes # (1.0-4.8) k/uL ABG HCO3 (21-25) mmol/L ABG Total CO2 (19-24) mmol/L ABG O2 Saturation (94-97) % Sodium 147 H (137-145) mmol/L Chloride 112 H (98-107) mmol/L Glucose 172 H (74-99) mg/dL POC Glucose (mg/dL) (75-99) mg/dL Microbiology - Last 24 Hours (Table) 01/31/21 11:30 Gram Stain - Final Sputum Sputum Culture - Final Haemophilus influenzae 01/31/21 21:45 Blood Culture - Preliminary Blood No Growth after 24 hours Assessment and Plan Plan: 1 acute V. fib cardiac arrest, with essentially negative cardiac workup. The patient has a normal coronary on cardiac catheterization and the patient has normal echo with a normal ejection fraction without any valvular abnormalities. Suspect bilateral pneumonia with subsequent hypoxemia resulting into hypoxic respiratory failure and subsequent cardiac arrest. 2 anoxic encephalopathy due to prolonged downtime following cardiac arrest/respiratory arrest/acute hypoxic respiratory failure. Rule out underlying post ictal state following recurrent seizures over the past 24-48 hours. Seasonal controlled for now. 3 myoclonic jerks a candidate to anoxic encephalopathy/cardiac arrest, currently on a combination of propofol infusion, valproic acid and Keppra. The patient is currently off propofol. The patient is not showing any clinical signs of seizures on limited EEG showed no evidence of any ongoing seizure activity. 4 acute hypoxic respiratory failure currently intubated on mechanical ventilator secondary to above 5 acute bilateral pneumonia secondary to Haemophilus influenza, consider aspiration. COVID-19 testing is negative 6 acute lactic acidosis secondary to above 7 acute leukocytosis secondary to above, white cell count is on the rise 8 acute shock, post cardiac arrest. Consider cardiogenic shock. Consider septic shock. Recovered . 9 diabetes mellitus 10 history of atrial fibrillation maintained on long-term antibiotic ventilation with Eliquis. Current rhythm is sinus. 11 hypertension, blood pressure is elevated and the patient is currently on Domenic viprex for blood pressure control. 12 hyperlipidemia 13 obesity Plan This patient's is currently intubated on mechanical ventilator. Keep the patient off propofol Monitor mental status Continue antiepileptic medication with a combination of Keppra and Depakote.. No evidence of any clinical seizures at this point in time. Rule out postictal state. Continue Cleviprex drip for blood pressure control Echocardiogram showed no significant abnormalities This continued IV heparin and put the patient on Lovenox 40 mg subcu for DVT prophylaxis The patient will be kept on examination Zosyn and Zithromax We'll put the patient on a sliding scale insulin coverage enteral feeding for nutritional support Repeat CAT scan of the brain today We will start the patient on Coreg and Zestril and gradually wean off the Cleviprex drip Monitor mental status closely and evaluate for ongoing hypoxic encephalopathy Condition is critical. Prognosis poor baseline above-mentioned comorbidities. Critically care evaluation that was done and more than 30 minutes.
--- NOTE | 2021-02-02 16:43 | CT ---
EXAMINATION TYPE: CT brain wo con DATE OF EXAM: 02/02/2021 COMPARISON: 01/31/2021 HISTORY: 60-year-old male Follow up cardiac arrest, ?cerebral edema TECHNIQUE: Examination was done in axial plane without intravenous contrast. Coronal and sagittal r econstructions performed. CT DLP: 1129.4 mGycm Automated exposure control for dose reduction was used. FINDINGS: The exam is technically degraded with extensive noise artifact. This limits visualization of the flores -white matter differentiation. However, there is no progressive sulcal effacement or effacement of ba sweetie subarachnoid cisterns. The ventricle caliber remains stable. No midline shift or extra-axial flui d collection seen. No evidence for acute intracranial hemorrhage. Air-fluid level sphenoid sinuses and moderate mucosal thickening throughout the ethmoid air cells. Sm all amount of fluid scattered within the bilateral mastoid air cells. IMPRESSION: 1. Technically degraded exam with extensive noise artifact precluding assessment of flores-white matter differentiation. However, there is no progressive sulcal effacement, ventricular caliber narrowing, or effacement of basal cisterns that would lend support to the presence of significant cerebral edema . Short interval follow-up recommended. Repeat exam under more ideal conditions if high clinical conc berenice. 2. Scattered fluid in the mastoid air cells and some air-fluid levels in the sphenoid sinuses could b e secondary to mucociliary dysfunction from intubation.
[2021-02-02 18:30] LABS: Glucose,Whole Blood 151 mg/dL (75-99)
[2021-02-02] MEDS ORDERED: Potassium Replacement Protocol 1 EACH MISC MISCELLANE PRN (18:30)
[2021-02-02] MEDS ORDERED: POTASSIUM BICARBONATE/CIT AC 20 MEQ TABLET.EFF NG-TUBE SCH (19:00)
[2021-02-02] MEDS ORDERED: POTASSIUM BICARB-CITRIC ACID 25 MEQ TABLET.EFF PO SCH (19:00)
[2021-02-02] MEDS ORDERED: methylPREDNISolone SOD SUCCI 125 MG/2 ML VIAL IV SCH (19:30)
[2021-02-02] MEDS ORDERED: IPRATROPIUM-ALBUTEROL 3 ML NEB INHALATION SCH (20:00)
--- NOTE | 2021-02-02 20:28 | P.PN ---
Subjective This is a pleasant 60 years old male with past medical history of hypertension, hyperlipidemia, diabetes mellitus, atrial fibrillation, on Eliquis, osteoarthritis Patient presents with cardiac arrest, he is developed ventricular fibrillation and got shocked by EMS staff. Also he was intubated on the presentation. Per documents patient was called for shortness of breath but he collapsed in front of the EMS staff. Patient currently intubated and cannot provide information. He was undergoing EEG with video monitoring and noted to have frequent myoclonic jerks of the upper part of the body. Neurology service or the informed and came to see the patient who recommended an extra dose of Dilantin while monitoring level. Please refer to neurology for more details. As per neurologist this could be evidence of anoxic brain injury On presentation he was tachycardic, hypotensive and tachypneic. Currently blood pressure is 105/62, his FiO2 of 50% and oxygen saturation of 95%. Labs showing mild leukocytosis of 17.3 and 13.9 K Lars of CBC is unremarkable. D-dimer is slightly elevated at 1.6. Last pH is normal at 7.3, normal pCO2 of 44 and normal pO2 of 104. BMP is unremarkable with normal creatinine at 1.1. Glucose is slightly elevated at 201. Liver enzymes slightly elevated with AST 151 and ALT 87. Bilirubin within the reference range of 1.2. Troponin is normal at 0.2 CT of the brain: Cerebral atrophy. No acute intracranial abnormality CTA of the chest: No pulmonary embolism, multifocal patchy airspace opacity throughout the bilateral lungs. Ascending thoracic aortic ectasia 4.5 cm. Multiple nondisplaced left rib fractures deformity status post CPR In the emergency room he was started on Levophed and heparin drip with cardiology, pulmonary/critical care and neurology team were consulted 02/01/2021 Patient remains in the ICU intubated and sedated ED which is been followed closely by proper/critical care team. Pulmonary team decided not to change ventilation setting today while trying to stop the propofol to see if there is any further seizures with EEG. Patient is kept also on Keppra and Dilantin His tachypneic with a breathing rate 28-32. His with some leukocytosis but he is also on Zithromax and Zosyn Echocardiogram showed ejection fraction of 50-55%, heparin drip was stopped and started on Lovenox prophylactic dose area Continue to also normal standard 100 mL per hour Covid test came back negative 02/02/2021 Patient remains in the ICU intubated in critical condition, he still followed closely by pulmonary/critical care team will help with vent management. Patient is propofol and we'll monitor his mental status closely. Repeat EEG showing no epileptiform discharge. CT of the brain showing mild cerebral edema. Neurologist with evidence of loss of flores-white junction and evidence of mild diffuse sulcal effacement. No hemorrhage IV fluids was used up today He is currently kept on Keppra and Depakote. However is of propofol with close monitoring of his mental state He is tachypneic and 34, tachycardic and 110 and feverish with 102. Chest x- ray showing diffuse interstitial infiltrate with left lower lobe infiltrate suspicious for aspiration pneumonia on both sides rather than CHF with normal ejection fraction of 50-55%. Sputum culture growing Haemophilus influenza and currently is been covered with Zosyn and Zithromax. Discontinue IV fluids and monitor blood pressure Review of systems: N/a Active Medications Generic Name Dose Route Start Last Admin Trade Name Freq PRN Reason Stop Dose Admin Albuterol/Ipratropium 3 ml 01/31/21 08:00 02/02/21 19:09 Ipratropium-Albuterol 3 Ml Neb INHALATION 3 ml RT-Q4H RAMÍREZ Administration Carvedilol 3.125 mg 02/02/21 21:00 Carvedilol 3.125 Mg Tab PO BID RAMÍREZ Chlorhexidine Gluconate 15 ml 01/31/21 09:00 02/02/21 08:36 Chlorhexidine Gluconate 15 Ml Cup MUCOUS MEM 15 ml BID RAMÍREZ Administration Enoxaparin Sodium 40 mg 02/02/21 09:00 02/02/21 08:37 Enoxaparin 40 Mg/0.4 Ml Syringe SQ 40 mg DAILY RAMÍREZ Administration Famotidine 20 mg 01/31/21 09:00 02/02/21 08:36 Famotidine 20 Mg/2 Ml Vial IV 20 mg Q12HR RAMÍREZ Administration Hydromorphone HCl 0.5 mg 02/02/21 13:18 Hydromorphone 0.5 Mg/0.5 Ml Syringe IVP Q4HR PRN Pain Sodium Chloride 1,000 mls @ 20 mls/hr 01/30/21 21:45 02/02/21 15:59 Saline 0.9% IV Not Given .Q24H RAMÍREZ Levetiracetam 1,000 mg/ IV 100 mls @ 400 mls/hr 01/30/21 23:45 02/02/21 12:24 Solution IVPB 400 mls/hr Q12H RAMÍREZ Administration Piperacillin Sod/Tazobactam 100 mls @ 25 mls/hr 01/31/21 08:00 02/02/21 16:01 Sod 3.375 gm/ Sodium Chloride IVPB 25 mls/hr Q8HR RAMÍREZ Administration Azithromycin 500 mg/ Sodium 250 mls @ 250 mls/hr 01/31/21 21:00 02/01/21 21:12 Chloride IVPB 250 mls/hr HS RAMÍREZ Administration Valproic Acid 750 mg/ Sodium 57.5 mls @ 50 mls/hr 02/01/21 12:00 02/02/21 17:51 Chloride IVPB 50 mls/hr Q6HR RAMÍREZ Administration Acetaminophen 1,000 mg/ IV 100 mls @ 400 mls/hr 02/01/21 20:56 02/02/21 17:51 Solution IVPB 02/02/21 20:57 400 mls/hr Q6HR PRN Administration Fever Clevidipine 25 mg/ IV Solution 50 mls @ 2 mls/hr 02/02/21 07:00 02/02/21 19:46 IV 7 mg/hr .Q24H RAMÍREZ 14 mls/hr Administration Protocol 1 MG/HR Insulin Aspart 0 unit 01/31/21 07:00 02/02/21 18:43 Insulin Aspart (Novolog) 100 Unit/Ml Vial SQ 2 unit Q6HR RAMÍREZ Administration Protocol Lisinopril 2.5 mg 02/03/21 09:00 Lisinopril 2.5 Mg Tab PO DAILY RAMÍREZ Miscellaneous Information 1 each 02/01/21 07:13 Potassium Replacement Protocol 1 Each Misc MISCELLANE DAILY PRN Per Protocol Protocol Miscellaneous Information 1 each 02/02/21 18:30 Potassium Replacement Protocol 1 Each Misc MISCELLANE DAILY PRN Per Protocol Protocol Objective - Vital Signs Vital signs: Vital Signs Temp 102.8 F H 02/02/21 08:00 Pulse 105 H 02/02/21 11:00 Resp 34 H 02/02/21 11:00 BP 144/82 02/02/21 11:00 Pulse Ox 95 02/02/21 11:00 Intake & Output 02/01/21 02/02/21 02/02/21 18:59 06:59 18:59 Intake Total 9559.322 1103 803.533 Output Total 540 1555 550 Balance 1198.172 295 253.533 Weight 132 kg 135.1 kg 135.1 kg Intake: IV 1200 1200 500 Sodium Chloride 0.9% 1, 1200 1200 500 000 ml @ 100 mls/hr IV . Q10H RAMÍREZ Rx#:[id number] Intake, IV Titration 538.172 450 203.533 Amount ACETAMINOPHEN IV (For NPO 100 100 ) 1,000 mg In Empty Bag 1 bag @ 400 mls/hr IVPB Q6HR PRN Rx#:[id number] Azithromycin 500 mg In 250 Sodium Chloride 0.9% 250 ml @ 250 mls/hr IVPB HS RAMÍREZ Rx#:[id number] Clevidipine Butyrate 25 3.533 mg In Empty Bag 1 bag @ 1 MG/HR 2 mls/hr IV .Q24H RAMÍREZ Rx#:[id number] Heparin Sod,Pork in 0.45% 14.832 NaCl 25,000 unit In 0.45 % NaCl 1 250ml.bag @ 7. 704 UNITS/KG/HR 10 mls/hr IV .Q24H RAMÍREZ Rx#: [id number] Norepinephrine 4 mg In 254.000 Sodium Chloride 0.9% 250 ml @ 0.05 MCG/KG/MIN 25. 26 mls/hr IV .Q10H4M RAMÍREZ Rx#:[id number] Phenytoin Sodium Inj 750 100 mg In Sodium Chloride 0.9 % 100 ml @ 200 mls/hr IVPB ONCE STA Rx#: [id number] Piperacillin-Tazobactam 3 50 100 .375 gm In Sodium Chloride 0.9% 100 ml @ 25 mls/hr IVPB Q8HR RAMÍREZ Rx# :[id number] Potassium Chloride 20 meq 100 In Water For Injection 1 100ml.bag @ 50 mls/hr IVPB Q2H RAMÍREZ Rx#: [id number] Valproate Sodium 750 mg 50 50 In Sodium Chloride 0.9% 50 ml @ 50 mls/hr IVPB Q6HR RAMÍREZ Rx#:[id number] propofoL 1,000 mg In 19.34 Empty Bag 1 bag @ Titrate IV .Q0M RAMÍREZ Rx#: [id number] Tube Feeding 140 100 Other 60 Output: Urine 540 1055 550 Emesis 500 Other: Voiding Method Indwelling Catheter Indwelling Catheter Indwelling Catheter ABP, PAP, CO, CI - Last Documented Arterial Blood Pressure 121/91 - Exam -GENERAL: The patient is intubated and sedated HEENT: Pupils are round and equally reacting to light. EOMI. No scleral icterus. No conjunctival pallor. Normocephalic, atraumatic. No pharyngeal erythema. No thyromegaly. CARDIOVASCULAR: S1 and S2 present. No murmurs, rubs, or gallops. PULMONARY: Chest is clear to auscultation, no wheezing or crackles. ABDOMEN: Soft, nontender, nondistended, normoactive bowel sounds. No palpable organomegaly. MUSCULOSKELETAL: No joint swelling or deformity. EXTREMITIES: No cyanosis, clubbing, or pedal edema. NEUROLOGICAL: Gross neurological examination did not reveal any focal deficits. SKIN: No rashes. No petechiae - Labs CBC & Chem 7: 02/02/21 13:50 02/02/21 13:50 Labs: Abnormal Lab Results - Last 24 Hours (Table) 02/01/21 02/02/21 02/02/21 Range/Units 16:51 00:18 04:33 ABG HCO3 28 H (21-25) mmol/L ABG Total CO2 29 H (19-24) mmol/L ABG O2 Saturation 97.7 H (94-97) % POC Glucose (mg/dL) 190 H 158 H (75-99) mg/dL 02/02/21 02/02/21 Range/Units 06:51 11:20 ABG HCO3 (21-25) mmol/L ABG Total CO2 (19-24) mmol/L ABG O2 Saturation (94-97) % POC Glucose (mg/dL) 180 H 222 H (75-99) mg/dL Microbiology - Last 24 Hours (Table) 01/31/21 21:45 Blood Culture - Preliminary Blood No Growth after 24 hours 01/31/21 11:30 Gram Stain - Preliminary Sputum Sputum Culture - Preliminary Assessment and Plan Assessment: Status post cardiac arrest, status post V. fib and electric shock. Hypoxic respiratory failure status post intubation bilateral multifocal patchy airspace disease possible anoxic brain injury Possible seizures Myoclonic jerks, witnessed during video EEG, thought secondary to severe anoxic brain injury. Repeat EEG no epileptiform discharge Possible septic shock, unknown source of infection Left multiple rib fractures secondary to CPR History of Hypertension Hyperlipidemia Diabetes mellitus Chronic atrial fibrillation on Eliquis History of osteoarthritis Plan: This is a pleasant 60 years old male who presents with cardiac arrest and V. fib. Currently he is intubated and in the ICU Continue with Keppra and Depakote with close monitoring of mental state. Neurology of the case patient is on Zosyn. Patient is off pressors but is still on mechanical ventilation with pulmonary/critical care team on the case Several consults on the case including pulmonary/critical care, cardiology and neurology Discontinue IV fluids Labs and medication were reviewed.. Continue same treatment. Continue with symptomatic treatment. Resume home medication. Monitor lytes and vitals. DVT and GI prophylaxis. Further recommendations depends on the clinical course of the patient DVT prophylaxis: Lovenox GI Prophylaxis: Pepcid Prognosis is guarded
[2021-02-02] MEDS: AZITHROMYCIN 500 MG in SODIUM CHLORIDE 0.9% 250 ML IVPB SCH (20:56)
[2021-02-02] MEDS: carvediloL 3.125 MG TAB PO SCH (20:56)
[2021-02-02 23:57] LABS: Glucose,Whole Blood 133 mg/dL (75-99)
[2021-02-03] MEDS: VALPROATE SODIUM 750 MG in SODIUM CHLORIDE 0.9% 50 ML IVPB SCH ×4 (00:02→18:11)
[2021-02-03] MEDS: INSULIN ASPART (NovoLOG) 100 UNIT/ML VIAL SQ SCH ×4 (00:02→18:11)
[2021-02-03] MEDS: PIPERACILLIN-TAZOBACTAM 3.375 GM in SODIUM CHLORIDE 0.9% 100 ML IVPB SCH ×3 (00:02→15:57)
[2021-02-03] MEDS: IPRATROPIUM-ALBUTEROL 3 ML NEB INHALATION SCH ×5 (04:40→19:29)
[2021-02-03 05:16] LABS: Basophils # (A) 0.4 k/uL (0-0.2); Basophils % (A) 2 %; Eosinophils % (A) 0 %; HCT 47.1 % (39.0-53.0); HGB 14.9 gm/dL (13.0-17.5); Hypochromasia Slight; Lymphocytes # (A) 0.2 k/uL (1.0-4.8); Lymphocytes % (A) 1 %; MCH 34.3 pg (25.0-35.0); MCHC 31.7 g/dL (31.0-37.0); Macrocytosis Marked; Mean Platelet Volume 9.7; Monocytes # (A) 0.8 k/uL (0-1.0); Monocytes % (A) 4 %; Neutrophils # (A) 21.4 k/uL (1.3-7.7); Neutrophils % (A) 93 %; Platelet Count 195 k/uL (150-450); RBC 4.36 m/uL (4.30-5.90); RDW 14.6 % (11.5-15.5); WBC 23.1 k/uL (3.8-10.6)
[2021-02-03 05:31] LABS: ABG Base Excess 5.5 mmol/L; ABG HCO3 30 mmol/L (21-25); ABG Oxygen Saturation 96.4 % (94-97); ABG PCO2 48 mmHg (35-45); ABG PH 7.41 (7.35-7.45); ABG PO2 79 mmHg (83-108); ABG TCO2 32 mmol/L (19-24); Allen Test Performed? Yes
[2021-02-03 05:35] LABS: ALT 35 U/L (4-49); AST 63 U/L (17-59); African American GFR (CKD) >90 (>60 ml/min/1.73 sqM); Albumin 2.5 g/dL (3.5-5.0); Alkaline Phosphatase 106 U/L (38-126); Anion Gap 7 mmol/L; Bilirubin, Delta 0.5 mg/dL (0.0-0.2); Bilirubin,Unconjugated 0.3 mg/dL (0.0-1.1); Blood Urea Nitrogen 27 mg/dL (9-20); Calcium 9.4 mg/dL (8.4-10.2); Carbon Dioxide 28 mmol/L (22-30); Chloride 114 mmol/L (98-107); Glucose 214 mg/dL (74-99); Non-African American GFR(CKD) >90 (>60 ml/min/1.73 sqM); Sodium 149 mmol/L (137-145); Total Bilirubin 0.8 mg/dL (0.2-1.3); Total Protein 5.3 g/dL (6.3-8.2)
[2021-02-03 06:44] LABS: Glucose,Whole Blood 187 mg/dL (75-99)
[2021-02-03] MEDS ORDERED: ACETAMINOPHEN IV (For NPO) 1,000 MG in EMPTY BAG 1 BAG IVPB PRN (07:03)
--- NOTE | 2021-02-03 07:28 | XR ---
EXAMINATION TYPE: XR chest 1V portable DATE OF EXAM: 02/03/2021 COMPARISON: Chest x-ray 02/02/2021 HISTORY: Intubated TECHNIQUE: Single frontal view of the chest is obtained. FINDINGS: Endotracheal tube and NG tube, left-sided central venous catheter are overlying appropriat e positions. There is interval obscured appearance to the left hemidiaphragm. No evident pneumothorax . Cardiac mediastinal silhouette is likely stable. IMPRESSION: There may be worsening left lower lobe atelectasis versus pneumonia and associated effus ion.
[2021-02-03] MEDS ORDERED: IBUPROFEN 200 MG TAB PO PRN (08:46)
--- NOTE | 2021-02-03 08:47 | P.PN ---
Subjective Progress Note Date: 02/03/21 This is a 60-year-old male patient who presented to us with cardiac arrest. The patient arrived to the emergency department yesterday afternoon with cardiopulmonary arrest. And is a morbidly obese male patient, diabetic along with history of hypertension and atrial fibrillation along with history of al coholism. Patient was having difficulties in breathing. EMS arrived to the scene and they found the patient quite short of breath, cold and clammy and was having significant respiratory distress. EKG was done and initial EKG showed some signs of ST segment elevation involving the inferior leads including 23 and aVF. The patient was also nauseated and had an episode of emesis and subsequently became acutely unresponsive and pulseless. CPR was initiated. The patient was intubated on scene. Initial cardiac rhythm was ventricular fibrillation. He received defibrillation in the field and he became asystolic. He received epinephrine and resuscitation was continued. He was brought in to [facility] emergency department and he was suffering cardiac arrest and CPR was in progress. Resuscitation was continued in the emergency department. CPR was continued. IV access was established. Airway was secured by EMS via intubation and the patient has a 7.5 orotracheal tube. Patient remained pulseless. He was given further doses of epinephrine, bicarbonate and calcium gluconate. There was return of spontaneous circulation subsequently. The exact downtime was estimated to be somewhat 20 minutes. The patient underwent immediate cardiac catheterization the cardiac catheterization contrary to our expectation turn down worker to be within normal limits. Following that, the patient was brought into the intensive care unit. He was coming slightly restless during the cath,. The patient was started on propofol which is still running at 40 mg/kg/m. Nevertheless, overnight, the patient started posturing and the patient started having jerky body movements which were quite rapid beta typical of myoclonic jerks. At that point, I started the patient on Keppra and earlier this morning he was started also on Dilantin given 1 g loading. His cardiac rhythm is sinus. He is still hypotensive and he is on Prevacid which is running at 0.08 mcg/kg per minute of norepinephrine infusion. He has a Oquendo catheter in place. Urine output is in order of 40 mL an hour. Normal saline is running at the rate of 100 mL an hour. He is on a mechanical ventilator. His assist-control mode at the rate of 28 with a tidal volume of 500 and FiO2 of 50% with a PEEP of 5. The blood gases from this morning is showing pH of 7.37 with a pCO2 of 44 and pO2 of 104. Note that the chest x-ray showing bilateral pulmonary infiltrates. CT angios done that was done yesterday showed extensive bilateral lower lobe pulmonary infiltrates and consolidations consistent with pneumonia likely of an aspiration type. COVID-19 testing was sent and the results are still pending. White cell count from today is elevated at 13.9. It was 17.3 yesterday. The electrolytes are normal. Creatinine is at 1.1. Alcohol level is negative. Urine drug screen has not been done. CAT scan of the brain done yesterday showed no acute abnormalities. 02/01/2021, the patient remains intubated on mechanical ventilator. He is post cardiac pulmonary arrest probably due to an extensive pneumonia. Cardiac workup came back essentially negative. Cardiac catheterization was normal and echocardiogram also showed no acute abnormalities. Current rhythm is sinus and the patient remains on pressors for now and norepinephrine infusion is running at 0.08 mitral respiratory per minute and the patient remains in a normal saline at the rate of 100 mL an hour. The activation from yesterday was underwent seizure activity. The patient was started initially on propofol. Later on Keppra was added. Due to ongoing seizure activity, the patient was also given a combination of Dilantin and Depakote. As of yesterday evening, no further seizure activity has been noted. Note that the EEG was showing for suppression consistent with seizure activity. Patient is completely unresponsive at this point in time. He is on a mechanical ventilator assist control mode and currently he is on a rate of 20 with a tidal volume of 500 and FiO2 of 50% with a PEEP of 5. Blood gases show a pH of 7.36 with a pCO2 of 47 and pO2 of 66 and the chest x-rays consistent with bilateral pneumonia. He is covered empirically with a combination of antibiotics including Zosyn and Zithromax. Sputum Gram stain and culture was sent. Blood culture was also sent. He is on pressors at a lower dose as mentioned. He will be started on enteral feeding for nutritional support. White cell count is up to 22.3. He remains sedated propofol and Profore is running at 50 mcg/kg per minute. Discussed the case with neurology. Depakote will be continued at a dose of 750 mg every 6 hours. Dilantin will be stopped for now. We'll continue Keppra and propofol. 02/02/2021, the patient is being seen in follow-up in intensive care unit. The patient is intubated on a mechanical ventilator. The patient is post cardiac pulmonary arrest as mentioned in the patient's currently being treated for Haemophilus influenza pneumonia and sepsis in time of admission. In terms of his neurologic function is, the patient was taken off the propofol. He is curre ntly on no sedation. Probable was discontinued and repeat EEG was done and showed no evidence of any ongoing seizure activity. Clinically the patient having any seizures. The patient is currently on 2 different antiepileptic medication including Keppra and Depakote. No seizure was noted. No myoclonic jerks. The patient however remains unresponsive. He occasionally moves his left upper extremity to deep painful stimulation. He is also sensing some pain. Initially his lower extremities. Pupils are equal and reactive to light. Very weak corneals. Positive gag. No seizure activity is noted. He remains intubated on a mechanical ventilator. On today's evaluation, the patient is on a assist-control mode at the rate of 28 with a tidal volume of 500 and FiO2 of 50% with a PEEP of 5. The blood gases from today showed a pH of 7.4 with a pCO2 of 44 and pO2 of 90. This was on FiO2 of 50%. Chest x-ray still showing bilateral pneumonia and a sputum culture was positive for Haemophilus influenza and the patient remains on a combination of Zosyn and Zithromax. The patient also is off pressors. In fact his blood pressure was on the rise. Based on that, the patient was placed on a Cleviprex drip for blood pressure control which is currently running at 7 mg an hour. The patient is also running and on and off fever with a T-max of 102.8 and the patient was given IV Tylenol. He is tolerating enteral feeding for nutritional support and the patient is currently on vital high protein at the rate of 20 mL an hour. The patient's COVID-19 testing came back negative. His white cell count is at 25 with a hemoglobin of 15.9. His sodium level is at 147 with a potassium level of 3.6 and a chloride of 112 and the BUN of 18 with a creatinine of 0.6. No other significant events overnight. The right on the case. The patient remains on Lovenox for DVT prophylaxis. 02/03/2021, the patient remains off propofol and the patient is unresponsive. He has not been sensing any painful stimulation. I was told that he may sometimes react to a deep painful stimulation is applied to his upper chest or arms. Otherwise, he remains deeply comatose. No seizure activity has been note d. He has a very weak cough and gag. He'll occasionally breathes above the mechanical ventilator which is set at the rate of 28. Note that throughout the night, the patient was having episodes of fever. T-max was as high as 102.4. Based on that, the patient was continued on IV Tylenol and the patient was given including blankets. His last temperature is at 101.9. This was from 4 AM this morning. While, the patient is still intubated on a mechanical ventilator. He is on assist control mode at the rate of 28 with a tidal volume of 500 and FiO2 of 50% with a PEEP of 5. Peak airway pressures are 32. The chest x-ray still showing bilateral pulmonary infiltrates involving right lower lobe, left upper lobe, left lower lobe. His infiltration has somewhat improved compared to admission chest x-ray at time of admission. He grew Haemophilus influenza in his sputum and the patient remains on a combination of Zosyn and Zithromax.. Blood cultures of been negative for now. No significant orotracheal secretions at this point. IV fluids are running in the form of normal saline at the rate of 20 mL an hour. He is on enteral feeding for nutritional support in the form of vital high protein at the rate of 40 mL an hour. His blood work from today shows a white cell count of 23 with hemoglobin 14.9 and a platelet of 195. His sodium is at 149. He has a BUN of 27 with a creatinine of 0.8. Liver function tests are normal with AST of 63, ALT of 35, serum albumin is at 2.5. He remains on a combination of antiepileptic medications and is currently on a combination of Keppra and Depakote. Neurologist on the case for now. As stated, no seizure activity has been noted. Objective - Vital Signs Vital signs: Vital Signs Temp 101.9 F H 02/03/21 04:00 Pulse 100 02/03/21 07:10 Resp 28 H 02/03/21 07:00 BP 136/75 02/03/21 07:00 Pulse Ox 95 02/03/21 07:00 Intake & Output 02/02/21 02/03/21 02/03/21 18:59 06:59 18:59 Intake Total 4442.013 8891 60 Output Total 1335 1220 100 Balance 278.133 -170 -40 Weight 135.1 kg Intake: IV 820 200 20 Sodium Chloride 0.9% 1, 820 200 20 000 ml @ 20 mls/hr IV . Q24H RAMÍREZ Rx#:[id number] Intake, IV Titration 603.133 400 Amount ACETAMINOPHEN IV (For NPO 200 ) 1,000 mg In Empty Bag 1 bag @ 400 mls/hr IVPB Q6HR PRN Rx#:[id number] Azithromycin 500 mg In 250 Sodium Chloride 0.9% 250 ml @ 250 mls/hr IVPB HS RAMÍREZ Rx#:[id number] Clevidipine Butyrate 25 103.133 150 mg In Empty Bag 1 bag @ 1 MG/HR 2 mls/hr IV .Q24H RAMÍREZ Rx#:[id number] Piperacillin-Tazobactam 3 200 .375 gm In Sodium Chloride 0.9% 100 ml @ 25 mls/hr IVPB Q8HR RAMÍREZ Rx# :[id number] Valproate Sodium 750 mg 100 In Sodium Chloride 0.9% 50 ml @ 50 mls/hr IVPB Q6HR RAMÍREZ Rx#:[id number] Tube Feeding 190 360 40 Other 90 Output: Urine 1335 1220 100 Other: Voiding Method Indwelling Catheter Indwelling Catheter ABP, PAP, CO, CI - Last Documented Arterial Blood Pressure 128/65 - Exam Gen. appearance, patient is currently on no sedation.. No overt seizure activity was noted this morning.. He is unresponsive. He is intubated on a mechanical ventilator. Orotracheal and orogastric tube are both in place. He is morbidly obese. Head exam was generally normal. There was no scleral icterus or corneal arcus. Mucous membranes were moist. Neck was supple and without jugular venous distension, thyromegaly, or carotid bruits. Carotids were easily palpable bilaterally. There was no adenopathy. Orogastric and orotracheal tube are both in place and the patient has a #7.5 orotracheal tube. Lungs sounds are diminished and the patient has scattered rhonchi heard throughout the lung his bilaterally and crackles are also appreciated the lung bases Heart sounds are regular, positive S1-S2 and there is no significant murmurs appreciated. Abdominal exam revealed normal bowel sounds. The abdomen was soft, non-tender, and without masses, organomegaly, or appreciable enlargement of the abdominal aorta. Extremities revealed diminished pulses bilaterally. No cyanosis or clubbing. Neurologically, the patient is completely unresponsive off propofol. no myoclonic jerks this morning. Pupils are round 5 mm in size, sluggishly reactive to light. No nystagmus. Positive corneal, positive pupillary reflex, positive gag reflex.. Babinski could not be elicited. Reflexes are quite diminished bilaterally. Does not respond to any painful stimulation. Motor function cannot be assessed. Sensory functions cannot be assessed. No neck stiffness. Occasionally grimaces to deep painful stimulation - Labs CBC & Chem 7: 02/03/21 05:02 02/03/21 05:02 Labs: Abnormal Lab Results - Last 24 Hours (Table) 02/02/21 02/02/21 02/02/21 Range/Units 08:12 11:20 13:50 WBC 25.1 H (3.8-10.6) k/uL RBC 4.02 L (4.30-5.90) m/uL MCV 106.3 H (80.0-100.0) fL Neutrophils # 23.2 H (1.3-7.7) k/uL Lymphocytes # 0.7 L (1.0-4.8) k/uL Basophils # (0-0.2) k/uL Macrocytosis ABG pCO2 (35-45) mmHg ABG pO2 (83-108) mmHg ABG HCO3 (21-25) mmol/L ABG Total CO2 (19-24) mmol/L Sodium (137-145) mmol/L Chloride (98-107) mmol/L BUN (9-20) mg/dL Glucose (74-99) mg/dL POC Glucose (mg/dL) 222 H (75-99) mg/dL Delta Bilirubin (0.0-0.2) mg/dL AST (17-59) U/L Total Protein (6.3-8.2) g/dL Albumin (3.5-5.0) g/dL Free Phenytoin 2.4 H (0.8-2.0) ug/mL 02/02/21 02/02/21 02/02/21 Range/Units 13:50 18:29 23:55 WBC (3.8-10.6) k/uL RBC (4.30-5.90) m/uL MCV (80.0-100.0) fL Neutrophils # (1.3-7.7) k/uL Lymphocytes # (1.0-4.8) k/uL Basophils # (0-0.2) k/uL Macrocytosis ABG pCO2 (35-45) mmHg ABG pO2 (83-108) mmHg ABG HCO3 (21-25) mmol/L ABG Total CO2 (19-24) mmol/L Sodium 147 H (137-145) mmol/L Chloride 112 H (98-107) mmol/L BUN (9-20) mg/dL Glucose 172 H (74-99) mg/dL POC Glucose (mg/dL) 151 H 133 H (75-99) mg/dL Delta Bilirubin (0.0-0.2) mg/dL AST (17-59) U/L Total Protein (6.3-8.2) g/dL Albumin (3.5-5.0) g/dL Free Phenytoin (0.8-2.0) ug/mL 02/03/21 02/03/21 02/03/21 Range/Units 05:02 05:02 05:29 WBC 23.1 H (3.8-10.6) k/uL RBC (4.30-5.90) m/uL MCV 108.0 H (80.0-100.0) fL Neutrophils # 21.4 H (1.3-7.7) k/uL Lymphocytes # 0.2 L (1.0-4.8) k/uL Basophils # 0.4 H (0-0.2) k/uL Macrocytosis Marked A ABG pCO2 48 H (35-45) mmHg ABG pO2 79 L (83-108) mmHg ABG HCO3 30 H (21-25) mmol/L ABG Total CO2 32 H (19-24) mmol/L Sodium 149 H (137-145) mmol/L Chloride 114 H (98-107) mmol/L BUN 27 H (9-20) mg/dL Glucose 214 H (74-99) mg/dL POC Glucose (mg/dL) (75-99) mg/dL Delta Bilirubin 0.5 H (0.0-0.2) mg/dL AST 63 H (17-59) U/L Total Protein 5.3 L (6.3-8.2) g/dL Albumin 2.5 L (3.5-5.0) g/dL Free Phenytoin (0.8-2.0) ug/mL 02/03/21 Range/Units 06:42 WBC (3.8-10.6) k/uL RBC (4.30-5.90) m/uL MCV (80.0-100.0) fL Neutrophils # (1.3-7.7) k/uL Lymphocytes # (1.0-4.8) k/uL Basophils # (0-0.2) k/uL Macrocytosis ABG pCO2 (35-45) mmHg ABG pO2 (83-108) mmHg ABG HCO3 (21-25) mmol/L ABG Total CO2 (19-24) mmol/L Sodium (137-145) mmol/L Chloride (98-107) mmol/L BUN (9-20) mg/dL Glucose (74-99) mg/dL POC Glucose (mg/dL) 187 H (75-99) mg/dL Delta Bilirubin (0.0-0.2) mg/dL AST (17-59) U/L Total Protein (6.3-8.2) g/dL Albumin (3.5-5.0) g/dL Free Phenytoin (0.8-2.0) ug/mL Microbiology - Last 24 Hours (Table) 01/31/21 21:45 Blood Culture - Preliminary Blood No Growth after 48 hours 01/31/21 11:30 Gram Stain - Final Sputum Sputum Culture - Final Haemophilus influenzae Assessment and Plan Plan: 1 acute V. fib cardiac arrest, with essentially negative cardiac workup. The patient has a normal coronary on cardiac catheterization and the patient has normal echo with a normal ejection fraction without any valvular abnormalities. Suspect bilateral pneumonia with subsequent hypoxemia resulting into hypoxic respiratory failure and subsequent cardiac arrest. Patient has obvious signs of anoxic encephalopathy. The patient has been off sedation for the past 48 hours. No reasonable neurologic recovery. Significant neurologic impairment and the patient is deeply comatose, unresponsive. 2 anoxic encephalopathy due to prolonged downtime following cardiac arrest/respiratory arrest/acute hypoxic respiratory failure. 3 myoclonic jerks a candidate to anoxic encephalopathy/cardiac arrest, currently on a combination of propofol infusion, valproic acid and Keppra. The patient is currently off propofol. The patient is not showing any clinical signs of seizures on limited EEG showed no evidence of any ongoing seizure activity. 4 acute hypoxic respiratory failure currently intubated on mechanical ventilator secondary to above 5 acute bilateral pneumonia secondary to Haemophilus influenza, consider aspiration. COVID-19 testing is negative 6 acute lactic acidosis secondary to above 7 acute leukocytosis secondary to above, white cell count is 23 8 acute shock, post cardiac arrest. Consider cardiogenic shock. Consider septic shock. Recovered . 9 diabetes mellitus 10 history of atrial fibrillation maintained on long-term antibiotic ventilation with Eliquis. Current rhythm is sinus. She is currently off Eliquis. He is also on Lovenox only 40 prophylaxis. We have noticed that his cardiac rhythm is remains sinus. 11 hypertension, blood pressure is elevated and the patient is currently off Cleviprex and he is already again lisinopril for blood pressure control. 12 hyperlipidemia 13 obesity 13 episodic fever , on IV Tylenol 15 hypernatremia due to to free water deficit Plan This patient's is currently intubated on mechanical ventilator. Keep the patient off propofol Monitor mental status Continue antiepileptic medication with a combination of Keppra and Depakote.. No evidence of any clinical seizures at this point in time. Suggest repeating another EEG to evaluate his neurologic function and extensive cerebral dysfunction and is intolerant rule out any possibility of ongoing seizure activity although clinically the patient is not having any seizures. Lovenox 40 mg subcu for DVT prophylaxis The patient will be kept on examination Zosyn and Zithromax Continue IV Tylenol for temperature along with putting blankets. We'll give also dose of ibuprofen 200 mg and use it when necessary every 8 hours on a as needed basis regarding temperature and this can be alternated with Tylenol We'll put the patient on a sliding scale insulin coverage enteral feeding for nutritional support Start the patient on free water supplements [id number] mL every 4 hours when necessary GE Repeat CAT scan of the brain from yesterday showed no evidence of any acute abnormalities. The patient had no evidence of any cerebral edema. Continue Coreg and Zestril and gradually wean off the Cleviprex drip Monitor mental status closely and evaluate for ongoing hypoxic encephalopathy Condition is critical. Prognosis poor baseline above-mentioned comorbidities. Critically care evaluation that was done and more than 30 minutes. Family decided DO NOT RESUSCITATE the cause status and further goals of treatment will be done by family members today. Time with Patient: Greater than 30
[2021-02-03] MEDS: FAMOTIDINE 20 MG/2 ML VIAL IV SCH (10:07)
[2021-02-03] MEDS: CHLORHEXIDINE GLUCONATE 15 ML CUP MUCOUS MEM SCH (10:07)
[2021-02-03] MEDS: carvediloL 3.125 MG TAB PO SCH (10:08)
[2021-02-03] MEDS: ENOXAPARIN 40 MG/0.4 ML SYRINGE SQ SCH (10:08)
[2021-02-03 11:39] LABS: Glucose,Whole Blood 206 mg/dL (75-99)
[2021-02-03] MEDS: levETIRAcetam IV 1,000 MG in SALINE 1 100ML.BAG IVPB SCH (12:05)
[2021-02-03 17:15] VITALS: BP 116/64; PULSE 77; RESP 29; TEMP 99
[2021-02-03 17:35] LABS: Glucose,Whole Blood 213 mg/dL (75-99)
[2021-02-03] MEDS ORDERED: MORPHINE SULFATE 4 MG/ML SYRINGE IV PRN (17:56)
[2021-02-03] MEDS ORDERED: ATROPINE OPHTH SOLN 1% 5ML BTL SUBLINGUAL PRN (17:56)
[2021-02-03] MEDS ORDERED: LORazepam 2 MG/ML INJ IV PRN (17:56)
[2021-02-03] MEDS ORDERED: MORPHINE SULFATE 2 MG/ML SYRINGE IV PRN (17:56)
--- NOTE | 2021-02-03 21:58 | P.DS ---
Providers Date of admission: 01/30/21 18:50 Attending physician: Vikas Nettles Consults: 01/30/21 18:50 Consult Physician Stat Consulting Provider: Phil King Consult Reason/Comments: STEMI, cardiopulmonary arrest Do you want consulting provider notified?: Already Contacted Consult Physician Stat Consulting Provider: Fran Brown Consult Reason/Comments: STEMI, cardiopulmonary arrest Do you want consulting provider notified?: Already Contacted 01/30/21 23:22 Consult Physician Stat Consulting Provider: Abelardo Matos Consult Reason/Comments: post code posturing Do you want consulting provider notified?: Yes Primary care physician: [facility] Course: Diagnoses: Status post cardiac arrest, status post V. fib and electric shock. Hypoxic respiratory failure status post intubation bilateral multifocal patchy airspace disease possible anoxic brain injury Possible seizures Myoclonic jerks, witnessed during video EEG, thought secondary to severe anoxic brain injury. Repeat EEG no epileptiform discharge Possible septic shock, unknown source of infection Left multiple rib fractures secondary to CPR History of Hypertension Hyperlipidemia Diabetes mellitus Chronic atrial fibrillation on Eliquis History of osteoarthritis Hospital course: This is a 60 years old male with multiple medical problems found in cardiac arrest and resuscitated in the field by EMS and got intubated. He was admitted in critical condition where he was noticed to have severe myoclonic jerks during his EEG exam which is indicative of severe anoxic brain injury, also he developed septic shock versus cardiogenic shock with aspiration pneumonia is suspected and despite been treated with various antibiotics. He was on mechanical ventilation, he was started on seizure medication and his been foll owed by several consultants including pulmonary/critical care team, clinical specialist, and the neurologist patient did not show signs of improvement, eventually patient was made no code and comfort care by family Patient that and on 02/03. Please refer to nurse note for more details Physical exam in the morning prior to expiration -GENERAL: The patient is intubated and sedated HEENT: Pupils are round and equally reacting to light. EOMI. No scleral icterus. No conjunctival pallor. Normocephalic, atraumatic. No pharyngeal erythema. No thyromegaly. CARDIOVASCULAR: S1 and S2 present. No murmurs, rubs, or gallops. PULMONARY: Chest is clear to auscultation, no wheezing or crackles. ABDOMEN: Soft, nontender, nondistended, normoactive bowel sounds. No palpable organomegaly. MUSCULOSKELETAL: No joint swelling or deformity. EXTREMITIES: No cyanosis, clubbing, or pedal edema. NEUROLOGICAL: Gross neurological examination did not reveal any focal deficits. SKIN: No rashes. No petechiae Patient Condition at Discharge: Critical Plan - Discharge Summary Discharge Rx Participant: No New Discharge Prescriptions: No Action lisinopriL [Zestril] 2.5 mg PO DAILY Apixaban [Eliquis] 5 mg PO BID metFORMIN HCL [Glucophage] 500 mg PO BID traZODone HCL 300 mg PO HS Prazosin HCl 2 mg PO HS Ergocalciferol (Vitamin D2) [Vitamin D2 (50,000 Iu)] 2,500 mcg PO DIRECTED Carvedilol [Coreg] 3.125 mg PO BID buPROPion HCL [buPROPion HCL Xl] 150 mg PO DAILY Aspirin EC [Ecotrin Low Dose] 81 mg PO DAILY Discharge Medication List lisinopriL [Zestril] 2.5 mg PO DAILY 11/12/16 [History] Apixaban [Eliquis] 5 mg PO BID 02/11/18 [History] metFORMIN HCL [Glucophage] 500 mg PO BID 02/11/18 [History] Carvedilol [Coreg] 3.125 mg PO BID 08/11/20 [History] Ergocalciferol (Vitamin D2) [Vitamin D2 (50,000 Iu)] 2,500 mcg PO DIRECTED 08/11/20 [History] Prazosin HCl 2 mg PO HS 08/11/20 [History] traZODone HCL 300 mg PO HS 08/11/20 [History] Aspirin EC [Ecotrin Low Dose] 81 mg PO DAILY 01/30/21 [History] buPROPion HCL [buPROPion HCL Xl] 150 mg PO DAILY 01/30/21 [History] Follow up Appointment(s)/Referral(s): Misty Moran MD [Primary Care Provider] - 1-2 days Vinicius Knox MD [STAFF PHYSICIAN] - 1 Week Discharge Disposition: - Preliminary Cause of Preliminary Cause of : cardiac arrest, septic shock , anoxic brain injury
--- NOTE | 2021-02-04 09:08 | P.PN ---
Subjective Progress Note Date: 02/03/21 02/03/2021: This is a Tele-neurology follow-up performed on the patient today on 02/03/2021. Patient is not on any sedation. Propofol has been discontinued. No clinical improvement. No seizure-like activity noted. Patient has not developed temperature 103.1. Objective - Vital Signs Vital signs: Vital Signs Temp 103.1 F H 02/03/21 08:00 Pulse 98 02/03/21 11:27 Resp 28 H 02/03/21 09:00 BP 143/78 02/03/21 09:00 Pulse Ox 95 02/03/21 09:00 Intake & Output 02/02/21 02/03/21 02/03/21 18:59 06:59 18:59 Intake Total 1122.448 2031 60 Output Total 1335 1220 100 Balance 278.133 -170 -40 Weight 135.1 kg Intake: IV 820 200 20 Sodium Chloride 0.9% 1, 820 200 20 000 ml @ 20 mls/hr IV . Q24H RAMÍREZ Rx#:[id number] Intake, IV Titration 603.133 400 Amount ACETAMINOPHEN IV (For NPO 200 ) 1,000 mg In Empty Bag 1 bag @ 400 mls/hr IVPB Q6HR PRN Rx#:[id number] Azithromycin 500 mg In 250 Sodium Chloride 0.9% 250 ml @ 250 mls/hr IVPB HS RAMÍREZ Rx#:[id number] Clevidipine Butyrate 25 103.133 150 mg In Empty Bag 1 bag @ 1 MG/HR 2 mls/hr IV .Q24H RAMÍREZ Rx#:[id number] Piperacillin-Tazobactam 3 200 .375 gm In Sodium Chloride 0.9% 100 ml @ 25 mls/hr IVPB Q8HR RAMÍREZ Rx# :[id number] Valproate Sodium 750 mg 100 In Sodium Chloride 0.9% 50 ml @ 50 mls/hr IVPB Q6HR RAMÍREZ Rx#:[id number] Tube Feeding 190 360 40 Other 90 Output: Urine 1335 1220 100 Other: Voiding Method Indwelling Catheter Indwelling Catheter ABP, PAP, CO, CI - Last Documented Arterial Blood Pressure 128/65 - Exam Patient is deeply comatose. GCS is 3. Pupils are small, nonreactive. Corneals absent. Oculocephalics absent. Minimal gag and cough, only certain times. Patient is not breathing over the ventilator. Patient has developed high fever, for which he is on a cooling blanket. Also on IV Tylenol. No response to painful stimuli. Patient has bilateral Babinski. Patient's examination has been progressively getting worse. - Labs CBC & Chem 7: 02/03/21 05:02 02/03/21 05:02 Labs: Abnormal Lab Results - Last 24 Hours (Table) 02/02/21 02/02/21 02/02/21 Range/Units 08:12 13:50 13:50 WBC 25.1 H (3.8-10.6) k/uL RBC 4.02 L (4.30-5.90) m/uL MCV 106.3 H (80.0-100.0) fL Neutrophils # 23.2 H (1.3-7.7) k/uL Lymphocytes # 0.7 L (1.0-4.8) k/uL Basophils # (0-0.2) k/uL Macrocytosis ABG pCO2 (35-45) mmHg ABG pO2 (83-108) mmHg ABG HCO3 (21-25) mmol/L ABG Total CO2 (19-24) mmol/L Sodium 147 H (137-145) mmol/L Chloride 112 H (98-107) mmol/L BUN (9-20) mg/dL Glucose 172 H (74-99) mg/dL POC Glucose (mg/dL) (75-99) mg/dL Delta Bilirubin (0.0-0.2) mg/dL AST (17-59) U/L Total Protein (6.3-8.2) g/dL Albumin (3.5-5.0) g/dL Free Phenytoin 2.4 H (0.8-2.0) ug/mL 02/02/21 02/02/21 02/03/21 Range/Units 18:29 23:55 05:02 WBC 23.1 H (3.8-10.6) k/uL RBC (4.30-5.90) m/uL MCV 108.0 H (80.0-100.0) fL Neutrophils # 21.4 H (1.3-7.7) k/uL Lymphocytes # 0.2 L (1.0-4.8) k/uL Basophils # 0.4 H (0-0.2) k/uL Macrocytosis Marked A ABG pCO2 (35-45) mmHg ABG pO2 (83-108) mmHg ABG HCO3 (21-25) mmol/L ABG Total CO2 (19-24) mmol/L Sodium (137-145) mmol/L Chloride (98-107) mmol/L BUN (9-20) mg/dL Glucose (74-99) mg/dL POC Glucose (mg/dL) 151 H 133 H (75-99) mg/dL Delta Bilirubin (0.0-0.2) mg/dL AST (17-59) U/L Total Protein (6.3-8.2) g/dL Albumin (3.5-5.0) g/dL Free Phenytoin (0.8-2.0) ug/mL 02/03/21 02/03/21 02/03/21 Range/Units 05:02 05:29 06:42 WBC (3.8-10.6) k/uL RBC (4.30-5.90) m/uL MCV (80.0-100.0) fL Neutrophils # (1.3-7.7) k/uL Lymphocytes # (1.0-4.8) k/uL Basophils # (0-0.2) k/uL Macrocytosis ABG pCO2 48 H (35-45) mmHg ABG pO2 79 L (83-108) mmHg ABG HCO3 30 H (21-25) mmol/L ABG Total CO2 32 H (19-24) mmol/L Sodium 149 H (137-145) mmol/L Chloride 114 H (98-107) mmol/L BUN 27 H (9-20) mg/dL Glucose 214 H (74-99) mg/dL POC Glucose (mg/dL) 187 H (75-99) mg/dL Delta Bilirubin 0.5 H (0.0-0.2) mg/dL AST 63 H (17-59) U/L Total Protein 5.3 L (6.3-8.2) g/dL Albumin 2.5 L (3.5-5.0) g/dL Free Phenytoin (0.8-2.0) ug/mL 02/03/21 Range/Units 11:38 WBC (3.8-10.6) k/uL RBC (4.30-5.90) m/uL MCV (80.0-100.0) fL Neutrophils # (1.3-7.7) k/uL Lymphocytes # (1.0-4.8) k/uL Basophils # (0-0.2) k/uL Macrocytosis ABG pCO2 (35-45) mmHg ABG pO2 (83-108) mmHg ABG HCO3 (21-25) mmol/L ABG Total CO2 (19-24) mmol/L Sodium (137-145) mmol/L Chloride (98-107) mmol/L BUN (9-20) mg/dL Glucose (74-99) mg/dL POC Glucose (mg/dL) 206 H (75-99) mg/dL Delta Bilirubin (0.0-0.2) mg/dL AST (17-59) U/L Total Protein (6.3-8.2) g/dL Albumin (3.5-5.0) g/dL Free Phenytoin (0.8-2.0) ug/mL Microbiology - Last 24 Hours (Table) 01/31/21 21:45 Blood Culture - Preliminary Blood No Growth after 48 hours 01/31/21 11:30 Gram Stain - Final Sputum Sputum Culture - Final Haemophilus influenzae Assessment and Plan Assessment: * Status post cardiac arrest with prolonged downtime of around 16 minutes. * Myoclonic status epilepticus now resolved. 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 GCS of 3. Patient's examination continues to get worse. * Probable community-acquired pneumonia with superimposed aspiration pneumonia. * Normal coronary angiography. * Obesity Plan: * Patient is not showing any signs of clinical improvement. Patient's examination in fact is deteriorating. Now with very minimal pupillary respon se if at all. Corneals absent. Continues to be comatose. * Repeat EEG 02/01/2021 continues to be very severely abnormal due to presence of burst suppressed pattern. The suppressed pattern appears isoelectric, whereas the burst phase consist of high amplitude generalized delta slowing. This pattern is typically seen with severe anoxic encephalopathy, and pertains to overall poor prognosis. No epileptiform activity was seen during this study. When compared to the previous study from 01/31/2021, the epileptiform activity has resolved. * Patient to be continued on Depakote 750 mg 4 times a day. We will stop Keppra. * Repeat computed tomography scan of the head was performed 02/02/2021. It reveals evidence of mild diffuse cerebral edema, with evidence of loss of flores-white junction, and evidence of mild diffuse sulcal effacement, maximal seen involving the bilateral parietal occipital region. No hemorrhage. * At present, prognosis for meaningful recovery is very poor. Family consi dering terminal weaning and comfort care.
== END 2021-02-03 21:28 | disposition expired | DRG 871 ==
LOC: EC 17:29 → 2SICU 18:50
PROVIDERS: ADMIT Hospitalist; ATTEND Hospitalist
PROC: 02HV33Z Insertion of Infusion Device into Superior Vena Cava, Percutaneous Approach (ICD-10-PCS; 2021-01-30)
PROC: B2151ZZ Fluoroscopy of Left Heart using Low Osmolar Contrast (ICD-10-PCS; 2021-01-30)
PROC: B2111ZZ Fluoroscopy of Multiple Coronary Arteries using Low Osmolar Contrast (ICD-10-PCS; 2021-01-30)
PROC: 4A023N7 Measurement of Cardiac Sampling and Pressure, Left Heart, Percutaneous Approach (ICD-10-PCS; 2021-01-30)
PROC: 03HY32Z Insertion of Monitoring Device into Upper Artery, Percutaneous Approach (ICD-10-PCS; 2021-01-30)
PROC: 4A133J1 Monitoring of Arterial Pulse, Peripheral, Percutaneous Approach (ICD-10-PCS; 2021-01-30)
PROC: 4A133B1 Monitoring of Arterial Pressure, Peripheral, Percutaneous Approach (ICD-10-PCS; 2021-01-30)
PROC: 5A12012 Performance of Cardiac Output, Single, Manual (ICD-10-PCS; principal; 2021-01-30 18:06)
PROC: 5A1945Z Respiratory Ventilation, 24-96 Consecutive Hours (ICD-10-PCS; principal; 2021-01-30 18:06)
PROC: 0D9670Z Drainage of Stomach with Drainage Device, Via Natural or Artificial Opening (ICD-10-PCS; principal; 2021-01-30 18:06)
PROC: 3E033XZ Introduction of Vasopressor into Peripheral Vein, Percutaneous Approach (ICD-10-PCS; principal; 2021-01-30 18:06)
DX: A41.9 Sepsis, unspecified organism (principal); G93.6 Cerebral edema; J14 Pneumonia due to Hemophilus influenzae; J69.0 Pneumonitis due to inhalation of food and vomit; J96.01 Acute respiratory failure with hypoxia; R65.21 Severe sepsis with septic shock; R40.20 Unspecified coma; E87.4 Mixed disorder of acid-base balance; G93.1 Anoxic brain damage, not elsewhere classified; I48.20 Chronic atrial fibrillation, unspecified; J98.11 Atelectasis; M96.89 Other intraoperative and postprocedural complications and disorders of the musculoskeletal system; E87.0 Hyperosmolality and hypernatremia; E11.9 Type 2 diabetes mellitus without complications; E66.01 Morbid (severe) obesity due to excess calories; Z68.38 Body mass index [BMI] 38.0-38.9, adult; I77.810 Thoracic aortic ectasia; I46.2 Cardiac arrest due to underlying cardiac condition; I49.01 Ventricular fibrillation; F32.9 Major depressive disorder, single episode, unspecified; Z20.822 Contact with and (suspected) exposure to COVID-19; Z51.5 Encounter for palliative care; Z66 Do not resuscitate; G40.901 Epilepsy, unspecified, not intractable, with status epilepticus; I35.1 Nonrheumatic aortic (valve) insufficiency; I10 Essential (primary) hypertension; F10.10 Alcohol abuse, uncomplicated; I44.0 Atrioventricular block, first degree; I49.3 Ventricular premature depolarization; M19.90 Unspecified osteoarthritis, unspecified site; I45.10 Unspecified right bundle-branch block; J32.2 Chronic ethmoidal sinusitis; Y84.8 Other medical procedures as the cause of abnormal reaction of the patient, or of later complication, without mention of misadventure at the time of the procedure; E78.5 Hyperlipidemia, unspecified; R79.1 Abnormal coagulation profile; Z79.01 Long term (current) use of anticoagulants; Z79.82 Long term (current) use of aspirin; Z79.84 Long term (current) use of oral hypoglycemic drugs; Z79.899 Other long term (current) drug therapy; Z87.442 Personal history of urinary calculi; Z98.890 Other specified postprocedural states; Z80.9 Family history of malignant neoplasm, unspecified
CPT/HCPCS: 36415; 36556; 36600; 36620; 70450; 71045; 71275; 80048; 80053; 80076; 80177; 80185; 80186; 80306; 80320; 81001; 82550; 82553; 82805; 83605; 83735; 83880; 84484; 85025; 85379; 85610; 85730; 86850; 86900; 86901; 87040; 87070; 87205; 87635; 92950; 93005; 93306; 93458; 94002; 94003; 94640; 95822; 96374; 99291